=== PATIENT | male | born 1950 | race African-American/Black ===

== ENCOUNTER 2020-04-18 16:47 | Inpatient (IN) | payer MEDICARE, MEDICAID ==
--- NOTE | 2020-04-18 17:08 | ER Document Report ---
ED Fever - General Chief Complaint: Fever Stated Complaint: BREATHING DIFFICULTY Time Seen by Provider: 04/18/20 16:55 Notes: Patient is a 69-year-old male with a history of Alzheimer's dementia and schizophrenia that comes to the emergency department for chief complaint of fever. Fever was noticed tonight, reportedly staff noticed patient acting "different than his baseline", no other report given by EMS. Patient comes from the [facility]. Patient tested positive for COVID-19 by EMS in route. Patient noted to have a fever of 103.1 F on initial evaluation. Patient has a history of COPD, hyperlipidemia, former alcohol abuse as well. Patient is unable to give any meaningful history although he is cooperative with instructions and request s. TRAVEL OUTSIDE OF THE [place] IN LAST 30 DAYS: No - Related Data Allergies/Adverse Reactions: Penicillins Allergy (Verified 04/18/20 16:56) Past Medical History - General Information source: Patient - Social History Smoking Status: Unknown if Ever Smoked Frequency of alcohol use: Heavy - Former Lives with: Prison Family History: Reviewed & Not Pertinent Patient has homicidal ideation: No - Past Medical History Cardiac Medical History: Reports: Hx Hypercholesterolemia, Hx Hypertension Pulmonary Medical History: Reports: Hx COPD GI Medical History: Reports: Hx Gastroesophageal Reflux Disease - Immunizations Hx Diphtheria, Pertussis, Tetanus Vaccination: Yes Review of Systems - Review of Systems Constitutional: See HPI EENT: No symptoms reported Cardiovascular: No symptoms reported Respiratory: No symptoms reported Gastrointestinal: No symptoms reported Genitourinary: No symptoms reported Male Genitourinary: No symptoms reported Musculoskeletal: No symptoms reported Skin: No symptoms reported Hematologic/Lymphatic: No symptoms reported Neurological/Psychological: No symptoms reported Physical Exam - Vital signs Vitals: Resp Pulse Ox 21 H 87 L 04/18/20 16:52 04/18/20 16:52 - Notes Notes: GENERAL: Alert, interacts well. No acute distress. HEAD: Normocephalic, atraumatic. EYES: Pupils equal, round, and reactive to light. Extraocular movements intact. ENT: Oral mucosa moist, tongue midline. Oropharynx unremarkable. Airway patent. Nares patent, sinuses non-tender, ear canals unremarkable, TM's intact. NECK: Full range of motion. Supple. Trachea midline. No lymphadenopathy. LUNGS: Clear to auscultation bilaterally, no wheezes, rales, or rhonchi. No respiratory distress. Non-tender chest wall. HEART: Borderline tachycardic, normal rhythm, no murmur ABDOMEN: Soft, non-tender. Non-distended. EXTREMITIES: Moves all 4 extremities spontaneously. No edema, normal radial and dorsalis pedis pulses bilaterally. No cyanosis. BACK: no cervical, thoracic, lumbar midline tenderness. No saddle anesthesia, normal distal neurovascular exam. Moves all extremities in full range of motion. NEUROLOGICAL: Completely disoriented except for self. Normal speech. Cranial nerves II through XII grossly intact. Strength 5/5 in all extremities. PSYCH: Normal affect, normal mood. SKIN: Warm and flushed, otherwise unremarkable Course - Re-evaluation Re-evalutation: Patient is febrile, tachycardic, and hypoxic on room air at 87%. Patient is not on home oxygen. Patient was placed on 3 L nasal cannula and hypoxia resolved with oxygen saturation of 95%. Patient was treated for his fever by EMS and gradually his heart rate improved to the 90s. He is not hypotensive. Septic work-up pending. Patient Chest x-ray showing right-sided pneumonia, lactic acid is actually 4.1. Patient given small fluid bolus but potassium was only 2.9 and he is not hypotensive therefore patient was not given full 30 cc/kg resuscitation. CBC unremarkable except for thrombocytopenia. Patient was COVID-19 positive per EMS rapid test and this has been repeated here and is pending. Urinalysis obtained with temperature [place] and this is pending. Patient is completely demented at [facility] and we did place soft restraints because he was attempting to get out his IV and take off his monitoring. However patient is pleasant otherwise and he is following directions. Magnesium unremarkable, potassium infusing. EKG does not show prolonged QTC or U waves. I discussed with Dr. Munroe, he will evaluate the patient for admission. - Vital Signs Vital signs: Temp Pulse Resp BP Pulse Ox 98.4 F 71 22 H 131/59 H 94 04/19/20 04:11 04/19/20 04:11 04/19/20 04:11 04/19/20 04:11 04/19/20 04:59 - Laboratory Results Result Diagrams: 04/19/20 04:38 04/19/20 04:38 Laboratory Results Interpreted: 04/18/20 04/18/20 04/18/20 17:14 17:14 17:14 RDW 16.5 H Plt Count 130 L VBG pH 7.54 H Sodium 130.3 L Potassium 2.9 L* Chloride 85 L Carbon Dioxide 32 H BUN 21 H Est GFR (MDRD) Non-Af 59 L Glucose 228 H Lactic Acid Urine Blood Urine Urobilinogen 04/18/20 04/18/20 17:14 19:14 RDW Plt Count VBG pH Sodium Potassium Chloride Carbon Dioxide BUN Est GFR (MDRD) Non-Af Glucose Lactic Acid 4.1 H Urine Blood LARGE H Urine Urobilinogen 2.0 H Critical Laboratory Results Reviewed: Yes Attending or Supervising Physician who Reviewed Labs: FÁTIMA KINNEY - Radiology Results Critical Radiology Results Reviewed: No Critical Results - EKG Interpretation by Me Additional EKG results interpreted by me: EKG shows sinus tachycardia at a rate of 101, normal axis, QTC 431. Borderline T waves laterally, no ST segment changes in consecutive leads. Discharge - Discharge Clinical Impression: Hypoxia, Hypokalemia, COVID-19 Pneumonia Qualifiers: Pneumonia type: due to unspecified organism Laterality: right Lung location: middle lobe of lung Qualified Code(s): J18.9 - Pneumonia, unspecified organism Fever Qualifiers: Fever type: unspecified Qualified Code(s): R50.9 - Fever, unspecified Condition: Stable Disposition: ADMITTED INPATIENT Admitting Provider: Mer Unit Admitted: Medical Floor
--- NOTE | 2020-04-18 17:16 | RADIOLOGY REPORT (SQ) ---
EXAM DESCRIPTION: CHEST SINGLE VIEW IMAGES COMPLETED DATE/TIME: 04/18/2020 5:07 pm REASON FOR STUDY: sob COMPARISON: 2012. FINDINGS: One-view chest AP portable upright. Scarring in the apices with mild apical pleural thickening, likely scar. Suspect patchy right mid lung zone infiltrate laterally. Mild central vascular congestion. No significant pleural effusion. TECHNICAL DOCUMENTATION: JOB ID: [id number] Reading location - IP/workstation name: [email or web address]
[2020-04-18 17:29] LABS: ABSOLUTE BASOPHILS # (AUTO) 0.1 10^3/uL (0.0-0.2); ABSOLUTE LYMPHOCYTES (AUTO) 1.4 10^3/uL (0.5-4.7); ABSOLUTE MONOCYTES (AUTO) 1.1 10^3/uL (0.1-1.4); ABSOLUTE NEUT (AUTO) 6.1 10^3/uL (1.7-8.2); BASOPHILS % (AUTO) 1.2 % (0-2); HEMATOCRIT 38.7 % (37.9-51.0); HEMOGLOBIN 13.7 g/dL (13.5-17.0); LYMPHOCYTES % (AUTO) 15.8 % (13-45); MEAN CORPUSCULAR HEMOGLOBIN 30.6 pg (27.0-33.4); MEAN CORPUSCULAR HGB CONC 35.5 g/dL (32.0-36.0); MEAN CORPUSCULAR VOLUME 86 fl (80-97); MONOCYTES % (AUTO) 12.5 % (3-13); PLATELET COUNT 130 10^3/uL (150-450); RED BLOOD COUNT 4.49 10^6/uL (4.35-5.55); RED CELL DISTRIBUTION WIDTH 16.5 % (11.5-14.0); SEGMENTED NEUTROPHILS % (AUTO) 70.5 % (42-78); TOTAL CELLS COUNTED % (AUTO) 100 %; VENOUS BLOOD HCO3 29.7 mmol/L (20-32); VENOUS BLOOD PCO2 35.6 mmHg (35-63); VENOUS BLOOD PH 7.54 (7.30-7.42); WHITE BLOOD COUNT 8.7 10^3/uL (4.0-10.5)
[2020-04-18 17:53] LABS: ALBUMIN 4.1 g/dL (3.5-5.0); ALKALINE PHOSPHATASE 54 U/L (38-126); ANION GAP 13 (5-19); ASPARTATE AMINO TRANSFERASE 48 U/L (17-59); BILIRUBIN,DIRECT 0.2 mg/dL (0.0-0.4); BILIRUBIN,TOTAL 0.6 mg/dL (0.2-1.3); BLOOD UREA NITROGEN 21 mg/dL (7-20); CALCIUM 8.8 mg/dL (8.4-10.2); CARBON DIOXIDE 32 mmol/L (22-30); CHLORIDE 85 mmol/L (98-107); GLUCOSE 228 mg/dL (75-110); TOTAL PROTEIN 7.5 g/dL (6.3-8.2)
[2020-04-18 18:02] LABS: POTASSIUM 2.9 mmol/L (3.6-5.0)
[2020-04-18] MEDS ORDERED: CEFEPIME 2 GM/D5W RTU 2 GM/50 ML RTUPB IV ONE (18:02)
[2020-04-18] MEDS ORDERED: LIDOCAINE 2% URO-JET 5 ML KIT MM ONE (18:02)
[2020-04-18] MEDS ORDERED: NORMAL SALINE 500 ML IV ONE (18:03)
[2020-04-18] MEDS ORDERED: VANCOMYCIN HCL INJ 1000 MG VIAL IV ONE (18:28)
[2020-04-18] MEDS: POTASSI CL 20 MEQ/50 ML RIDER 20 MEQ/50 ML RTUPB IV SCH ×2 (18:55→20:34)
[2020-04-18 19:42] LABS: APPEARANCE,URINE CLEAR; BILIRUBIN,URINE NEGATIVE (NEGATIVE); COLOR,URINE YELLOW; GLUCOSE, URINE NEGATIVE (NEGATIVE); KETONES,URINE NEGATIVE (NEGATIVE); PROTEIN,URINE NEGATIVE (NEGATIVE); URINE SPECIFIC GRAVITY 1.012
[2020-04-18] MEDS ORDERED: PROMETHAZINE HCL INJ 25 MG/1 ML VIAL IV PRN (20:37)
[2020-04-18] MEDS ORDERED: RINGERS SOLUTION,LACTATED 1,000 ML IV PRN (20:37)
[2020-04-18] MEDS ORDERED: IVERMECTIN 3 MG TABLET PO ONE (20:44)
[2020-04-18] MEDS ORDERED: DEXAMETHASONE SOD PHOS INJ 10 MG/1 ML VIAL IV ONE (21:00)
--- NOTE | 2020-04-18 21:07 | PDOC H&P ---
History of Present Illness Admission Date/PCP: MARCO A RUEDA Patient complains of: Fever History of Present Illness: YAHAIRA SAUER is a 69 year old male with a history of Alzheimer's dementia, schizophrenia, COPD and hyperlipidemia who is brought in from [facility] after he was noted to have fever and change in his mental status from baseline. Patient is unable to give any meaningful answer and history was from ER signout and chart review. During transfer he had a temperature of 103.1 and he was given Tylenol by EMS which brought down his temperature. On arrival to the ED patient was saturating 87% on room air and was tachycardic. Further work-up indicates: Positive for COVID-19 with imaging findings consistent with Covid infection and currently being admitted to acute medicine floor for management of hypoxic respiratory failure. Past Medical History Cardiac Medical History: Reports: Hyperlipidema, Hypertension Pulmonary Medical History: Reports: Chronic Obstructive Pulmonary Disease (COPD) GI Medical History: Reports: Gastroesophageal Reflux Disease Social History Information Source: Emergency Med Personnel Lives with: Detention Smoking Status: Unknown if Ever Smoked - Advance Directive Resuscitation Status: Full Code Family History Family History: Reviewed & Not Pertinent Parental Family History Reviewed: No - Unobtainable due to mental status change Children Family History Reviewed: No Sibling(s) Family History Reviewed.: No Medication/Allergy Home Medications: Benztropine Mesylate 1 mg PO BID 12/17/14 Divalproex Sodium [Depakote ER] 1,000 mg PO QHS 04/19/20 Furosemide [Lasix] 20 mg PO DAILY 04/19/20 Hydrochlorothiazide 12.5 mg PO DAILY 04/19/20 Lorazepam 0.5 mg PO TID 04/19/20 Risperidone Microspheres [Risperdal Consta Inj 50 mg/2 ml Disp.syrin] 50 mg IM [id number] 04/19/20 Simvastatin [Zocor 10 mg Tablet] 10 mg PO QHS 04/19/20 Trazodone HCl 50 mg PO QHS 04/19/20 Allergies/Adverse Reactions: Penicillins Allergy (Verified 04/18/20 16:56) Review of Systems ROS unobtainable: Due to mental status Physical Exam Vital Signs: Temp Pulse Resp BP Pulse Ox 100.7 F H 22 H 145/64 H 99 04/18/20 19:18 04/18/20 19:18 04/18/20 19:18 04/18/20 19:18 Intake & Output 04/17/20 04/18/20 04/19/20 06:59 06:59 06:59 Intake Total 700 Balance 700 Weight 88.1 kg Additional comments: GENERAL APPEARANCE: Alert but unable to answer orientation question, is comfortably lying on his bed on 3 L intranasal oxygen saturating mid 90s HEENT: Normocephalic and atraumatic. No scleral icterus. Moist oral mucosa NECK: Supple. No lymphadenopathy. No JVD CHEST: Symmetric. Nontender to palpation. LUNGS: Clear with good air entry bilaterally. No wheezing or crackles HEART: Regular rate and rhythm with normal S1 and S2. No murmurs, gallops, or rubs. ABDOMEN: soft, active bowel sounds, no direct or rebound tenderness. No organomegaly detected. EXTREMITIES: No cyanosis, clubbing, or edema. MUSCULOSKELETAL: No deformity, atrophy or swelling noted PSYCHIATRIC: Difficult to assess due to advanced dementia. SKIN: Warm, dry, and well perfused. No lesions or rashes are noted. NEUROLOGIC: No focal neurologic deficit noted. Meningeal signs were negative Results Laboratory Results: 04/18/20 17:14 04/18/20 17:14 04/18/20 04/18/20 04/18/20 17:14 17:14 17:14 WBC 8.7 RBC 4.49 Hgb 13.7 Hct 38.7 MCV 86 MCH 30.6 MCHC 35.5 RDW 16.5 H Plt Count 130 L Seg Neutrophils % 70.5 VBG pH 7.54 H VBG pCO2 35.6 VBG HCO3 29.7 VBG Base Excess 7.0 Sodium 130.3 L Potassium 2.9 L* Chloride 85 L Carbon Dioxide 32 H Anion Gap 13 BUN 21 H Creatinine 1.21 Est GFR ( Amer) > 60 Glucose 228 H Lactic Acid Calcium 8.8 Magnesium Total Bilirubin 0.6 AST 48 Alkaline Phosphatase 54 Total Protein 7.5 Albumin 4.1 Urine Color Urine Appearance Urine pH Ur Specific [place] Urine Protein Urine Glucose (UA) Urine Ketones Urine Blood Urine RBC (Auto) 04/18/20 04/18/20 04/18/20 17:14 17:14 19:14 WBC RBC Hgb Hct MCV MCH MCHC RDW Plt Count Seg Neutrophils % VBG pH VBG pCO2 VBG HCO3 VBG Base Excess Sodium Potassium Chloride Carbon Dioxide Anion Gap BUN Creatinine Est GFR ( Amer) Glucose Lactic Acid 4.1 H Calcium Magnesium 1.7 Total Bilirubin AST Alkaline Phosphatase Total Protein Albumin Urine Color YELLOW Urine Appearance CLEAR Urine pH 7.0 Ur Specific [place] 1.012 Urine Protein NEGATIVE Urine Glucose (UA) NEGATIVE Urine Ketones NEGATIVE Urine Blood LARGE H Urine RBC (Auto) 2 04/18/20 17:14 Troponin I 0.024 Assessment and Plan - Diagnosis (1) Acute respiratory failure with hypoxia Is this a current diagnosis for this admission?: Yes Plan: Patient was brought in after he developed fever and confusion Oxygen saturation was 87% on room air on presentation Tested positive for COVID-19 Chest x-ray showed patchy right midlung opacities Placed patient on dexamethasone, gave first dose of ivermectin Continue zinc, vitamin C, vitamin D, on intranasal oxygen Continue ceftriaxone and azithromycin Follow-up with blood culture Closely monitor respiratory parameters (2) Pneumonia due to COVID-19 virus Is this a current diagnosis for this admission?: Yes Plan: Patient currently admitted for hypoxic respiratory failure due to COVID-19 pneumonia Continue management as stated above (3) Hypokalemia Is this a current diagnosis for this admission?: Yes Plan: Serum potassium level was 2.9 Patient was given IV potassium chloride at the ED Placed him on telemetry for monitoring Continue monitoring electrolytes and replete as necessary (4) Hyponatremia Is this a current diagnosis for this admission?: Yes Plan: Likely hypovolemic hyponatremia due to volume depletion Continue IV hydration Continue monitoring BMP and correct electrolytes as necessary (5) Metabolic alkalosis Is this a current diagnosis for this admission?: Yes Plan: Likely from alkalosis from volume depletion Continue IV hydration (6) Volume depletion Is this a current diagnosis for this admission?: Yes Plan: Patient had dry oral mucosa on physical exam Has metabolic alkalosis which is likely due to contraction Continue IV hydration and closely monitor vital signs (7) Schizophrenia Is this a current diagnosis for this admission?: Yes Plan: We will continue home medications (8) Alzheimer's dementia Is this a current diagnosis for this admission?: Yes Plan: Patient has an advanced dementia Attempt was made to contact next of kin to discuss was unsuccessful(phone number stated in chart out of service) (9) History of COPD Is this a current diagnosis for this admission?: Yes Plan: Continue breathing treatments with DuoNeb as needed (10) Hypertension Is this a current diagnosis for this admission?: Yes Plan: Currently blood pressure is within acceptable limits, will hold antihypertensive medications for now due to volume depletion - Time Time Spent with patient: 35 or more minutes Total Critical Time (Minutes): 45 Medications reviewed and adjusted accordingly: Yes Anticipated Discharge Disposition: Long-Term Facility Anticipated Discharge Timeframe: within 72 hours - Inpatient Certification Based on my medical assessment, after consideration of the patient's comorbidities, presenting symptoms, or acuity I expect that the services needed warrant INPATIENT care.: Yes I certify that my determination is in accordance with my understanding of Medicare's requirements for reasonable and necessary INPATIENT services [42 CFR 412.3e].: Yes Medical Necessity: Significant Comorbidiites Make Outpatient Treatment Too Risky, Need Close Monitoring Due to Risk of Patient Decompensation, Need for IV Antibiotics, Risk of Complication if Not Cared For in Hospital Post Hospital Care: D/C or Transfer Summary
--- NOTE | 2020-04-18 21:21 | EKG REPORT ---
SEVERITY:- ABNORMAL ECG - SINUS OR ECTOPIC ATRIAL TACHYCARDIA PROBABLE LEFT ATRIAL ABNORMALITY ABNORMAL T, CONSIDER ISCHEMIA, LATERAL LEADS : Confirmed by: Duncan Leo MD 18-Apr-2020 21:20:29
[2020-04-18 21:45] LABS: C-REACTIVE PROTEIN 82.9 mg/L (<10.0)
[2020-04-18] MEDS ORDERED: IVERMECTIN 3 MG TABLET ONE (21:55)
[2020-04-18] MEDS: TRAZODONE HCL 50 MG TABLET PO SCH (22:26)
[2020-04-18] MEDS: FAMOTIDINE 20 MG TABLET PO SCH (22:26)
[2020-04-18] MEDS: CEFTRIAXONE 1 GM/D5W RTU 1 GM/50 ML RTUPB IV SCH (22:30)
[2020-04-18] MEDS ORDERED: AZITHROMYCIN INJ 500 MG VIAL IV ONE (23:04)
[2020-04-19] MEDS: AZITHROMYCIN 500 MG in DEXTROSE 5%-WATER 250 ML IV SCH ×2 (00:20→21:12)
[2020-04-19 04:54] LABS: ABSOLUTE LYMPHOCYTES (AUTO) 0.7 10^3/uL (0.5-4.7); ABSOLUTE MONOCYTES (AUTO) 0.4 10^3/uL (0.1-1.4); ABSOLUTE NEUT (AUTO) 3.9 10^3/uL (1.7-8.2); BASOPHILS % (AUTO) 0.1 % (0-2); HEMATOCRIT 37.1 % (37.9-51.0); HEMOGLOBIN 13.3 g/dL (13.5-17.0); LYMPHOCYTES % (AUTO) 14.2 % (13-45); MEAN CORPUSCULAR HEMOGLOBIN 31.1 pg (27.0-33.4); MEAN CORPUSCULAR HGB CONC 35.8 g/dL (32.0-36.0); MEAN CORPUSCULAR VOLUME 87 fl (80-97); MONOCYTES % (AUTO) 7.9 % (3-13); PLATELET COUNT 118 10^3/uL (150-450); RED BLOOD COUNT 4.27 10^6/uL (4.35-5.55); RED CELL DISTRIBUTION WIDTH 16.4 % (11.5-14.0); SEGMENTED NEUTROPHILS % (AUTO) 77.8 % (42-78); TOTAL CELLS COUNTED % (AUTO) 100 %; WHITE BLOOD COUNT 5.1 10^3/uL (4.0-10.5)
[2020-04-19 05:19] LABS: ALBUMIN 3.6 g/dL (3.5-5.0); ALKALINE PHOSPHATASE 42 U/L (38-126); ANION GAP 10 (5-19); ASPARTATE AMINO TRANSFERASE 237 U/L (17-59); BILIRUBIN,DIRECT 0.3 mg/dL (0.0-0.4); BILIRUBIN,TOTAL 0.5 mg/dL (0.2-1.3); BLOOD UREA NITROGEN 15 mg/dL (7-20); CALCIUM 8.5 mg/dL (8.4-10.2); CARBON DIOXIDE 32 mmol/L (22-30); CHLORIDE 93 mmol/L (98-107); GLUCOSE 176 mg/dL (75-110); POTASSIUM 3.4 mmol/L (3.6-5.0); TOTAL PROTEIN 6.4 g/dL (6.3-8.2)
[2020-04-19] MEDS: ZINC SULFATE 220 MG CAPSULE PO SCH (09:51)
[2020-04-19] MEDS: ASCORBIC ACID 500 MG TABLET PO SCH ×2 (09:58→18:22)
[2020-04-19] MEDS: BENZTROPINE MESYLATE 1 MG TABLET PO SCH ×3 (09:58→17:39)
[2020-04-19] MEDS: ENOXAPARIN SODIUM INJ 40 MG/0.4 ML DISP.SYRIN SUBCUT SCH (09:58)
[2020-04-19] MEDS: CHOLECALCIFEROL (D3) 1,000 UNIT (25 MCG) TABLET PO SCH (09:58)
[2020-04-19] MEDS: FAMOTIDINE 20 MG TABLET PO SCH ×2 (09:58→21:12)
[2020-04-19] MEDS: DIVALPROEX SODIUM 500 MG TAB.SR.24H PO SCH (10:02)
[2020-04-19] MEDS ORDERED: POTASSIUM CHLORIDE 20 MEQ PACKET PO ONE (11:00)
--- NOTE | 2020-04-19 16:28 | PDOC PROGRESS REPORT ---
Subjective Date:: 04/19/20 Subjective:: YAHAIRA SAUER is a 69 year old male with a history of Alzheimer's dementia, s chizophrenia, COPD and hyperlipidemia who is brought in from [facility] after he was noted to have fever and change in his mental status from baseline. Patient is unable to give any meaningful answer and history was from ER signout and chart review. During transfer he had a temperature of 103.1 and he was given Tylenol by EMS which brought down his temperature. On arrival to the ED patient was saturating 87% on room air and was tachycardic. Further work-up indicates: Positive for COVID-19 with imaging findings consistent with Covid infection and currently being admitted to acute medicine floor for management of hypoxic respiratory failure. D1 Hospital stay 04/19/20 patient was seen and examined at bedside. He was on 2L of nasal cannula appears comfortable. He denies chest pain, palpitations or cough. Dementia seems at baseline. Reason For Visit: ACUTE HYPOXIC RESPIRATORY FAILURE PNUEMONIA DUE TO Physical Exam Vital Signs: Temp Pulse Resp BP Pulse Ox 98.2 F 75 20 130/62 H 98 04/19/20 10:00 04/19/20 14:00 04/19/20 08:00 04/19/20 08:00 04/19/20 08:00 Intake & Output 04/18/20 04/19/20 04/20/20 06:59 06:59 06:59 Intake Total 1050 530 Output Total 1275 370 Balance -225 160 Weight 86.3 kg General appearance: PRESENT: cooperative, mild distress Head exam: PRESENT: atraumatic, normocephalic Eye exam: PRESENT: EOMI, PERRLA Mouth exam: PRESENT: moist Neck exam: PRESENT: full ROM Respiratory exam: PRESENT: symmetrical, unlabored Cardiovascular exam: PRESENT: RRR, +S1, +S2 Pulses: PRESENT: +2 pedal pulses bilateral GI/Abdominal exam: PRESENT: normal bowel sounds, soft. ABSENT: rebound, tenderness Extremities exam: PRESENT: full ROM Musculoskeletal exam: PRESENT: full ROM Neurological exam: PRESENT: alert, awake. ABSENT: oriented to person, oriented to place, oriented to time, oriented to situation Psychiatric exam: PRESENT: normal mood Skin exam: PRESENT: normal color Results Laboratory Results: 04/19/20 04:38 04/19/20 04:38 04/18/20 04/18/2004/18/21 17:14 17:14 17:14 WBC 8.7 RBC 4.49 Hgb 13.7 Hct 38.7 MCV 86 MCH 30.6 MCHC 35.5 RDW 16.5 H Plt Count 130 L Seg Neutrophils % 70.5 VBG pH 7.54 H VBG pCO2 35.6 VBG HCO3 29.7 VBG Base Excess 7.0 Sodium 130.3 L Potassium 2.9 L* Chloride 85 L Carbon Dioxide 32 H Anion Gap 13 BUN 21 H Creatinine 1.21 Est GFR ( Amer) > 60 Glucose 228 H Lactic Acid Calcium 8.8 Magnesium Ferritin Total Bilirubin 0.6 AST 48 Alkaline Phosphatase 54 C-Reactive Protein Total Protein 7.5 Albumin 4.1 Urine Color Urine Appearance Urine pH Ur Specific [place] Urine Protein Urine Glucose (UA) Urine Ketones Urine Blood Urine RBC (Auto) 04/18/20 04/18/20 04/18/20 17:14 17:14 19:14 WBC RBC Hgb Hct MCV MCH MCHC RDW Plt Count Seg Neutrophils % VBG pH VBG pCO2 VBG HCO3 VBG Base Excess Sodium Potassium Chloride Carbon Dioxide Anion Gap BUN Creatinine Est GFR ( Amer) Glucose Lactic Acid 4.1 H Calcium Magnesium 1.7 Ferritin Total Bilirubin AST Alkaline Phosphatase C-Reactive Protein Total Protein Albumin Urine Color YELLOW Urine Appearance CLEAR Urine pH 7.0 Ur Specific [place] 1.012 Urine Protein NEGATIVE Urine Glucose (UA) NEGATIVE Urine Ketones NEGATIVE Urine Blood LARGE H Urine RBC (Auto) 2 04/18/20 04/18/20 04/19/20 21:15 21:15 00:19 WBC RBC Hgb Hct MCV MCH MCHC RDW Plt Count Seg Neutrophils % VBG pH VBG pCO2 VBG HCO3 VBG Base Excess Sodium Potassium Chloride Carbon Dioxide Anion Gap BUN Creatinine Est GFR ( Amer) Glucose Lactic Acid 1.8 1.3 Calcium Magnesium Ferritin 375.00 Total Bilirubin AST Alkaline Phosphatase C-Reactive Protein 82.9 H Total Protein Albumin Urine Color Urine Appearance Urine pH Ur Specific [place] Urine Protein Urine Glucose (UA) Urine Ketones Urine Blood Urine RBC (Auto) 04/19/20 04/19/20 04:38 04:38 WBC 5.1 RBC 4.27 L Hgb 13.3 L Hct 37.1 L MCV 87 MCH 31.1 MCHC 35.8 RDW 16.4 H Plt Count 118 L Seg Neutrophils % 77.8 VBG pH VBG pCO2 VBG HCO3 VBG Base Excess Sodium 134.7 L Potassium 3.4 L Chloride 93 L Carbon Dioxide 32 H Anion Gap 10 BUN 15 Creatinine 0.77 Est GFR ( Amer) > 60 Glucose 176 H Lactic Acid Calcium 8.5 Magnesium Ferritin Total Bilirubin 0.5 AST 237 H Alkaline Phosphatase 42 C-Reactive Protein Total Protein 6.4 Albumin 3.6 Urine Color Urine Appearance Urine pH Ur Specific [place] Urine Protein Urine Glucose (UA) Urine Ketones Urine Blood Urine RBC (Auto) 04/18/20 04/18/20 17:14 21:15 Creatine Kinase 6115 H Troponin I 0.024 Assessment and Plan - Diagnosis (1) Acute respiratory failure with hypoxia Is this a current diagnosis for this admission?: Yes Plan: Patient was brought in after he developed fever and confusion Oxygen saturation was 87% on room air on presentation Tested positive for COVID-19 Chest x-ray showed patchy right midlung opacities Placed patient on dexamethasone, gave first dose of ivermectin Continue zinc, vitamin C, vitamin D, on intranasal oxygen Continue ceftriaxone and azithromycin Follow-up with blood culture Closely monitor respiratory parameters (2) Pneumonia due to COVID-19 virus Is this a current diagnosis for this admission?: Yes Plan: Patient currently admitted for hypoxic respiratory failure due to COVID-19 pneumonia continue steroids, 2nd dose of ivermectin, empiric abx continue O2 support continue vitamin C, vitamin D, zinc unable to address CODE status with the patient due to dementia Continue management as stated above (3) History of COPD Is this a current diagnosis for this admission?: Yes Plan: Continue breathing treatments with DuoNeb as needed (4) Alzheimer's dementia Qualifiers: Alzheimer's disease onset: unspecified onset Is this a current diagnosis for this admission?: Yes Plan: Patient has an advanced dementia Attempt was made to contact next of kin to discuss was unsuccessful(phone number stated in chart out of service) (5) Hypertension Is this a current diagnosis for this admission?: Yes Plan: Currently blood pressure is within acceptable limits, will hold antihypertensive medications for now due to volume depletion (6) Hypokalemia Is this a current diagnosis for this admission?: Yes Plan: Serum potassium level was 2.9>3.4 replace as needed Placed him on telemetry for monitoring Continue monitoring electrolytes and replete as necessary (7) Hyponatremia Is this a current diagnosis for this admission?: Yes Plan: Likely hypovolemic hyponatremia due to volume depletion Continue IV hydration Continue monitoring BMP and correct electrolytes as necessary (8) Metabolic alkalosis Is this a current diagnosis for this admission?: Yes Plan: Likely from alkalosis from volume depletion encourage PO intake (9) Schizophrenia Is this a current diagnosis for this admission?: Yes Plan: We will continue home medications (10) Volume depletion Is this a current diagnosis for this admission?: Yes Plan: Patient had dry oral mucosa on physical exam Has metabolic alkalosis which is likely due to contraction encourage PO fluid intake - Time Time Spent with patient: 25-34 minutes Medications reviewed and adjusted accordingly: Yes Anticipated Discharge Disposition: [facility] Facility Anticipated Discharge Timeframe: TBD
[2020-04-19] MEDS ORDERED: HALOPERIDOL LACTATE INJ 5 MG/1 ML VIAL IV ONE (16:48)
[2020-04-19] MEDS: LORAZEPAM 0.5 MG TABLET PO SCH (17:08)
[2020-04-19] MEDS ORDERED: ZIPRASIDONE MESYLATE INJ/PF 20 MG SDV IM ONE (18:00)
[2020-04-19] MEDS: ACETAMINOPHEN 325 MG TABLET PO PRN ×2 (18:55→23:25)
[2020-04-19] MEDS: DEXAMETHASONE SOD PHOS INJ 10 MG/1 ML VIAL IV SCH (21:12)
[2020-04-19] MEDS: TRAZODONE HCL 50 MG TABLET PO SCH (21:13)
[2020-04-19] MEDS: CEFTRIAXONE 1 GM/D5W RTU 1 GM/50 ML RTUPB IV SCH (21:13)
[2020-04-19] MEDS ORDERED: DIVALPROEX SODIUM 500 MG TAB.SR.24H PO SCH (22:00)
[2020-04-19] MEDS ORDERED: TRAZODONE HCL 50 MG TABLET PO SCH (22:00)
[2020-04-19] MEDS ORDERED: SIMVASTATIN 10 MG TABLET PO SCH (22:00)
[2020-04-20 05:14] LABS: ABSOLUTE LYMPHOCYTES (AUTO) 0.3 10^3/uL (0.5-4.7); ABSOLUTE MONOCYTES (AUTO) 0.5 10^3/uL (0.1-1.4); ABSOLUTE NEUT (AUTO) 5.5 10^3/uL (1.7-8.2); BASOPHILS % (AUTO) 0.2 % (0-2); HEMATOCRIT 35.9 % (37.9-51.0); HEMOGLOBIN 12.7 g/dL (13.5-17.0); LYMPHOCYTES % (AUTO) 5.2 % (13-45); MEAN CORPUSCULAR HEMOGLOBIN 30.8 pg (27.0-33.4); MEAN CORPUSCULAR HGB CONC 35.3 g/dL (32.0-36.0); MEAN CORPUSCULAR VOLUME 87 fl (80-97); MONOCYTES % (AUTO) 8.3 % (3-13); PLATELET COUNT 125 10^3/uL (150-450); RED BLOOD COUNT 4.11 10^6/uL (4.35-5.55); RED CELL DISTRIBUTION WIDTH 16.3 % (11.5-14.0); SEGMENTED NEUTROPHILS % (AUTO) 86.3 % (42-78); TOTAL CELLS COUNTED % (AUTO) 100 %; WHITE BLOOD COUNT 6.4 10^3/uL (4.0-10.5)
[2020-04-20 05:25] LABS: ALBUMIN 3.4 g/dL (3.5-5.0); ALKALINE PHOSPHATASE 38 U/L (38-126); ANION GAP 7 (5-19); ASPARTATE AMINO TRANSFERASE 366 U/L (17-59); BILIRUBIN,DIRECT 0.4 mg/dL (0.0-0.4); BILIRUBIN,TOTAL 0.5 mg/dL (0.2-1.3); BLOOD UREA NITROGEN 14 mg/dL (7-20); CALCIUM 8.7 mg/dL (8.4-10.2); CARBON DIOXIDE 34 mmol/L (22-30); CHLORIDE 95 mmol/L (98-107); GLUCOSE 186 mg/dL (75-110); POTASSIUM 3.6 mmol/L (3.6-5.0); TOTAL PROTEIN 6.4 g/dL (6.3-8.2)
[2020-04-20] MEDS ORDERED: NORMAL SALINE 1000 ML 1,000 ML IV PRN (07:52)
[2020-04-20] MEDS ORDERED: IVERMECTIN 3 MG TABLET PO ONE (08:30)
[2020-04-20] MEDS: ENOXAPARIN SODIUM INJ 40 MG/0.4 ML DISP.SYRIN SUBCUT SCH (09:20)
[2020-04-20] MEDS: BENZTROPINE MESYLATE 1 MG TABLET PO SCH ×4 (09:25→17:19)
[2020-04-20] MEDS: ASCORBIC ACID 500 MG TABLET PO SCH ×2 (09:25→17:19)
[2020-04-20] MEDS: CHOLECALCIFEROL (D3) 1,000 UNIT (25 MCG) TABLET PO SCH (09:25)
[2020-04-20] MEDS: FAMOTIDINE 20 MG TABLET PO SCH ×2 (09:25→21:11)
[2020-04-20] MEDS: LORAZEPAM 0.5 MG TABLET PO SCH ×3 (09:25→17:19)
[2020-04-20] MEDS: ZINC SULFATE 220 MG CAPSULE PO SCH (09:27)
[2020-04-20] MEDS: DIVALPROEX SODIUM 500 MG TAB.SR.24H PO SCH (12:19)
--- NOTE | 2020-04-20 13:43 | PDOC PROGRESS REPORT ---
Subjective Date:: 04/20/20 Subjective:: YAHAIRA SAUER is a 69 year old male with a history of Alzheimer's dementia, s chizophrenia, COPD and hyperlipidemia who is brought in from [facility] after he was noted to have fever and change in his mental status from baseline. Patient is unable to give any meaningful answer and history was from ER signout and chart review. During transfer he had a temperature of 103.1 and he was given Tylenol by EMS which brought down his temperature. On arrival to the ED patient was saturating 87% on room air and was tachycardic. Further work-up indicates: Positive for COVID-19 with imaging findings consistent with Covid infection and currently being admitted to acute medicine floor for management of hypoxic respiratory failure. D1 Hospital stay 04/19/20 patient was seen and examined at bedside. He was on 2L of nasal cannula appears comfortable. He denies chest pain, palpitations or cough. Dementia seems at baseline. D2 Hospital stay 04/20/20 Patient was seen and examined at bedside. Per night nurse he became agitated and needed restraints. Today he was more calm and we were able to take the restraints off of him. He denies any SOB, O2 sat 99% on 3L of NC, so far has shown no increase in O2 needs. Reason For Visit: ACUTE HYPOXIC RESPIRATORY FAILURE PNUEMONIA DUE TO Physical Exam Vital Signs: Temp Pulse Resp BP Pulse Ox 97.6 F 61 20 124/77 94 04/20/20 11:36 04/20/20 11:36 04/20/20 11:36 04/20/20 11:36 04/20/20 11:36 Intake & Output 04/19/20 04/20/20 04/21/20 06:59 06:59 06:59 Intake Total 1050 830 Output Total 1275 595 Balance -225 235 Weight 86.3 kg 85.2 kg General appearance: PRESENT: no acute distress, cooperative Head exam: PRESENT: atraumatic, normocephalic Eye exam: PRESENT: EOMI, PERRLA Mouth exam: PRESENT: moist Neck exam: PRESENT: full ROM Respiratory exam: PRESENT: clear to auscultation rea, symmetrical, unlabored Cardiovascular exam: PRESENT: RRR, +S1, +S2 Pulses: PRESENT: +2 pedal pulses bilateral GI/Abdominal exam: PRESENT: normal bowel sounds, soft. ABSENT: rebound, tenderness Extremities exam: PRESENT: full ROM Musculoskeletal exam: PRESENT: full ROM Neurological exam: PRESENT: alert, awake. ABSENT: oriented to person, oriented to place, oriented to time, oriented to situation Psychiatric exam: PRESENT: normal mood Skin exam: PRESENT: normal color Results Laboratory Results: 04/20/20 04:31 04/20/20 04:31 04/20/20 04/20/20 04:31 04:31 WBC 6.4 RBC 4.11 L Hgb 12.7 L Hct 35.9 L MCV 87 MCH 30.8 MCHC 35.3 RDW 16.3 H Plt Count 125 L Seg Neutrophils % 86.3 H Sodium 135.6 L Potassium 3.6 Chloride 95 L Carbon Dioxide 34 H Anion Gap 7 BUN 14 Creatinine 0.78 Est GFR ( Amer) > 60 Glucose 186 H Calcium 8.7 Total Bilirubin 0.5 AST 366 H Alkaline Phosphatase 38 Total Protein 6.4 Albumin 3.4 L 04/18/20 04/18/20 17:14 21:15 Creatine Kinase 6115 H Troponin I 0.024 Assessment and Plan - Diagnosis (1) Acute respiratory failure with hypoxia Is this a current diagnosis for this admission?: Yes Plan: Patient was brought in after he developed fever and confusion Oxygen saturation was 87% on room air on presentation Tested positive for COVID-19 Chest x-ray showed patchy right midlung opacities Placed patient on dexamethasone, gave first dose of ivermectin Continue zinc, vitamin C, vitamin D, on intranasal oxygen Continue ceftriaxone and azithromycin Follow-up with blood culture Closely monitor respiratory parameters (2) Pneumonia due to COVID-19 virus Is this a current diagnosis for this admission?: Yes Plan: Patient currently admitted for hypoxic respiratory failure due to COVID-19 pneumonia continue steroids, 2nd dose of ivermectin, empiric abx continue O2 support continue vitamin C, vitamin D, zinc unable to address CODE status with the patient due to dementia Continue management as stated above (3) History of COPD Is this a current diagnosis for this admission?: Yes Plan: Continue breathing treatments with DuoNeb as needed (4) Alzheimer's dementia Qualifiers: Alzheimer's disease onset: unspecified onset Is this a current diagnosis for this admission?: Yes Plan: Patient has an advanced dementia Attempt was made to contact next of kin to discuss was unsuccessful(phone number stated in chart out of service) (5) Hypertension Qualifiers: Hypertension type: essential hypertension Qualified Code(s): I10 - Essential (primary) hypertension Is this a current diagnosis for this admission?: Yes Plan: Currently blood pressure is within acceptable limits, will hold antihypertensive medications for now due to volume depletion (6) Hypokalemia Is this a current diagnosis for this admission?: Yes Plan: Serum potassium level was 2.9>3.4 replace as needed Placed him on telemetry for monitoring Continue monitoring electrolytes and replete as necessary (7) Hyponatremia Is this a current diagnosis for this admission?: Yes Plan: Likely hypovolemic hyponatremia due to volume depletion Continue IV hydration Continue monitoring BMP and correct electrolytes as necessary (8) Metabolic alkalosis Is this a current diagnosis for this admission?: Yes Plan: Likely from alkalosis from volume depletion encourage PO intake (9) Schizophrenia Is this a current diagnosis for this admission?: Yes Plan: We will continue home medications (10) Volume depletion Is this a current diagnosis for this admission?: Yes Plan: Patient had dry oral mucosa on physical exam Has metabolic alkalosis which is likely due to contraction encourage PO fluid intake, continue IV fluids - Time Time Spent with patient: 15-24 minutes Medications reviewed and adjusted accordingly: Yes Anticipated Discharge Disposition: [facility]way Facility Anticipated Discharge Timeframe: tbd
[2020-04-20] MEDS: NORMAL SALINE 1000 ML 1,000 ML IV PRN (14:12)
[2020-04-20] MEDS ORDERED: ZIPRASIDONE MESYLATE INJ/PF 20 MG SDV IM ONE (17:30)
[2020-04-20] MEDS: AZITHROMYCIN 500 MG in DEXTROSE 5%-WATER 250 ML IV SCH (21:12)
[2020-04-20] MEDS: CEFTRIAXONE 1 GM/D5W RTU 1 GM/50 ML RTUPB IV SCH (21:12)
[2020-04-20] MEDS: DEXAMETHASONE SOD PHOS INJ 10 MG/1 ML VIAL IV SCH (21:12)
[2020-04-20] MEDS: TRAZODONE HCL 50 MG TABLET PO SCH (21:12)
[2020-04-20] MEDS: ACETAMINOPHEN 325 MG TABLET PO PRN (21:13)
[2020-04-21] MEDS: NORMAL SALINE 1000 ML 1,000 ML IV PRN (01:26)
[2020-04-21 06:22] LABS: ABSOLUTE LYMPHOCYTES (AUTO) 0.6 10^3/uL (0.5-4.7); ABSOLUTE MONOCYTES (AUTO) 0.4 10^3/uL (0.1-1.4); BASOPHILS % (AUTO) 0.2 % (0-2); HEMATOCRIT 37.1 % (37.9-51.0); HEMOGLOBIN 12.9 g/dL (13.5-17.0); LYMPHOCYTES % (AUTO) 9.7 % (13-45); MEAN CORPUSCULAR HEMOGLOBIN 30.6 pg (27.0-33.4); MEAN CORPUSCULAR HGB CONC 34.7 g/dL (32.0-36.0); MEAN CORPUSCULAR VOLUME 88 fl (80-97); MONOCYTES % (AUTO) 7.2 % (3-13); PLATELET COUNT 150 10^3/uL (150-450); RED BLOOD COUNT 4.21 10^6/uL (4.35-5.55); RED CELL DISTRIBUTION WIDTH 16.4 % (11.5-14.0); SEGMENTED NEUTROPHILS % (AUTO) 82.9 % (42-78); TOTAL CELLS COUNTED % (AUTO) 100 %
[2020-04-21 07:11] LABS: ALBUMIN 3.2 g/dL (3.5-5.0); ALKALINE PHOSPHATASE 40 U/L (38-126); ANION GAP 6 (5-19); ASPARTATE AMINO TRANSFERASE 267 U/L (17-59); BILIRUBIN,DIRECT 0.3 mg/dL (0.0-0.4); BILIRUBIN,TOTAL 0.4 mg/dL (0.2-1.3); BLOOD UREA NITROGEN 13 mg/dL (7-20); CALCIUM 8.4 mg/dL (8.4-10.2); CARBON DIOXIDE 33 mmol/L (22-30); CHLORIDE 98 mmol/L (98-107); GLUCOSE 185 mg/dL (75-110); POTASSIUM 3.7 mmol/L (3.6-5.0); TOTAL PROTEIN 6.3 g/dL (6.3-8.2)
[2020-04-21 08:37] LABS: HEPATITS B SURFACE ANTIGEN Negative (Negative)
[2020-04-21 08:55] LABS: HEPATITIS C VIRUS ANTIBODY <0.1 s/co ratio (0.0-0.9)
[2020-04-21] MEDS: BENZTROPINE MESYLATE 1 MG TABLET PO SCH ×4 (09:18→17:33)
[2020-04-21] MEDS: ENOXAPARIN SODIUM INJ 40 MG/0.4 ML DISP.SYRIN SUBCUT SCH (09:18)
[2020-04-21] MEDS: ASCORBIC ACID 500 MG TABLET PO SCH ×2 (09:18→17:32)
[2020-04-21] MEDS: FAMOTIDINE 20 MG TABLET PO SCH ×2 (09:18→21:19)
[2020-04-21] MEDS: CHOLECALCIFEROL (D3) 1,000 UNIT (25 MCG) TABLET PO SCH (09:18)
[2020-04-21] MEDS: ZINC SULFATE 220 MG CAPSULE PO SCH (09:33)
[2020-04-21] MEDS: DIVALPROEX SODIUM 500 MG TAB.SR.24H PO SCH (10:10)
--- NOTE | 2020-04-21 16:17 | PDOC PROGRESS REPORT ---
Subjective Date:: 04/21/20 Subjective:: YAHAIRA SAUER is a 69 year old male with a history of Alzheimer's dementia, s chizophrenia, COPD and hyperlipidemia who is brought in from [facility] after he was noted to have fever and change in his mental status from baseline. Patient is unable to give any meaningful answer and history was from ER signout and chart review. During transfer he had a temperature of 103.1 and he was given Tylenol by EMS which brought down his temperature. On arrival to the ED patient was saturating 87% on room air and was tachycardic. Further work-up indicates: Positive for COVID-19 with imaging findings consistent with Covid infection and currently being admitted to acute medicine floor for management of hypoxic respiratory failure. D1 Hospital stay 04/19/20 patient was seen and examined at bedside. He was on 2L of nasal cannula appears comfortable. He denies chest pain, palpitations or cough. Dementia seems at baseline. D2 Hospital stay 04/20/20 Patient was seen and examined at bedside. Per night nurse he became agitated and needed restraints. Today he was more calm and we were able to take the restraints off of him. He denies any SOB, O2 sat 99% on 3L of NC, so far has shown no increase in O2 needs. D3 hospital stay 04/21/20 Patient was seen and examined at bedside. He was again put back on restraints last night due to despite frequent re orientation. Otherwise, O2 sat is stable at 2L NC. He has completed Ivermectin doses.We will try to wean him off O2 tomorrow. Reason For Visit: ACUTE HYPOXIC RESPIRATORY FAILURE PNUEMONIA DUE TO Physical Exam Vital Signs: Temp Pulse Resp BP Pulse Ox 97.9 F 69 22 H 110/60 98 04/21/20 12:26 04/21/20 14:00 04/21/20 12:26 04/21/20 12:26 04/21/20 12:26 Intake & Output 04/20/20 04/21/20 04/22/20 06:59 06:59 06:59 Intake Total 830 2661 1000 Output Total 595 Balance 235 2661 1000 Weight 85.2 kg 86.2 kg General appearance: PRESENT: cooperative, mild distress Head exam: PRESENT: atraumatic, normocephalic Eye exam: PRESENT: EOMI, PERRLA Mouth exam: PRESENT: moist Neck exam: PRESENT: full ROM Respiratory exam: PRESENT: rales, symmetrical, unlabored Cardiovascular exam: PRESENT: RRR, +S1, +S2 Pulses: PRESENT: +2 pedal pulses bilateral GI/Abdominal exam: PRESENT: normal bowel sounds, soft. ABSENT: rebound, tenderness Extremities exam: PRESENT: full ROM Musculoskeletal exam: PRESENT: full ROM Neurological exam: PRESENT: alert, awake. ABSENT: oriented to person, oriented to place, oriented to time, oriented to situation Psychiatric exam: PRESENT: normal mood Results Laboratory Results: 04/21/20 06:01 04/21/20 06:01 04/21/20 04/21/20 06:01 06:01 WBC 6.0 RBC 4.21 L Hgb 12.9 L Hct 37.1 L MCV 88 MCH 30.6 MCHC 34.7 RDW 16.4 H Plt Count 150 Seg Neutrophils % 82.9 H Sodium 137.1 Potassium 3.7 Chloride 98 Carbon Dioxide 33 H Anion Gap 6 BUN 13 Creatinine 0.76 Est GFR ( Amer) > 60 Glucose 185 H Calcium 8.4 Total Bilirubin 0.4 AST 267 H Alkaline Phosphatase 40 Total Protein 6.3 Albumin 3.2 L 04/18/20 04/18/20 17:14 21:15 Creatine Kinase 6115 H Troponin I 0.024 Assessment and Plan - Diagnosis (1) Acute respiratory failure with hypoxia Is this a current diagnosis for this admission?: Yes Plan: Patient was brought in after he developed fever and confusion Oxygen saturation was 87% on room air on presentation Tested positive for COVID-19 Chest x-ray showed patchy right midlung opacities Placed patient on dexamethasone, gave first dose of ivermectin Continue zinc, vitamin C, vitamin D, on intranasal oxygen Continue ceftriaxone and azithromycin will complete 5 days of treatment blood culture negative x 48 hrs Closely monitor respiratory parameters (2) Pneumonia due to COVID-19 virus Is this a current diagnosis for this admission?: Yes Plan: Patient currently admitted for hypoxic respiratory failure due to COVID-19 pneumonia continue steroids, 2nd dose of ivermectin given, empiric abx continue O2 support continue vitamin C, vitamin D, zinc unable to address CODE status with the patient due to dementia Continue management as stated above (3) History of COPD Is this a current diagnosis for this admission?: Yes Plan: Continue breathing treatments with DuoNeb as needed (4) Alzheimer's dementia Qualifiers: Alzheimer's disease onset: unspecified onset Is this a current diagnosis for this admission?: Yes Plan: Patient has an advanced dementia Attempt was made to contact next of kin to discuss was unsuccessful(phone number stated in chart out of service) (5) Hypertension Qualifiers: Hypertension type: essential hypertension Qualified Code(s): I10 - E ssential (primary) hypertension Is this a current diagnosis for this admission?: Yes Plan: Currently blood pressure is within acceptable limits, will hold antihypertensive medications for now due to volume depletion (6) Hypokalemia Is this a current diagnosis for this admission?: Yes Plan: Serum potassium level was 2.9>3.4>3.7 replace as needed Placed him on telemetry for monitoring Continue monitoring electrolytes and replete as necessary (7) Hyponatremia Is this a current diagnosis for this admission?: Yes Plan: Likely hypovolemic hyponatremia due to volume depletion Continue IV hydration Continue monitoring BMP and correct electrolytes as necessary (8) Metabolic alkalosis Is this a current diagnosis for this admission?: Yes Plan: Likely from alkalosis from volume depletion encourage PO intake (9) Schizophrenia Is this a current diagnosis for this admission?: Yes Plan: We will continue home medications (10) Volume depletion Is this a current diagnosis for this admission?: Yes Plan: Patient had dry oral mucosa on physical exam Has metabolic alkalosis which is likely due to contraction encourage PO fluid intake, continue IV fluids - Time Time Spent with patient: 25-34 minutes Medications reviewed and adjusted accordingly: Yes Anticipated Discharge Disposition: [facility] Anticipated Discharge Timeframe: tbd
[2020-04-21] MEDS: CEFTRIAXONE 1 GM/D5W RTU 1 GM/50 ML RTUPB IV SCH (21:18)
[2020-04-21] MEDS: TRAZODONE HCL 50 MG TABLET PO SCH (21:19)
[2020-04-21] MEDS: DEXAMETHASONE SOD PHOS INJ 10 MG/1 ML VIAL IV SCH (21:20)
[2020-04-21] MEDS: AZITHROMYCIN 500 MG in DEXTROSE 5%-WATER 250 ML IV SCH (22:05)
[2020-04-21] MEDS: ZIPRASIDONE MESYLATE INJ/PF 20 MG SDV IM PRN (22:06)
--- NOTE | 2020-04-21 23:38 | EKG REPORT ---
SEVERITY:- NORMAL ECG - SINUS RHYTHM : Confirmed by: Marcos Kearney 21-Apr-2020 23:38:00
[2020-04-22 05:30] LABS: ABSOLUTE LYMPHOCYTES (AUTO) 0.6 10^3/uL (0.5-4.7); ABSOLUTE MONOCYTES (AUTO) 0.4 10^3/uL (0.1-1.4); ABSOLUTE NEUT (AUTO) 6.3 10^3/uL (1.7-8.2); BASOPHILS % (AUTO) 0.2 % (0-2); EOSINOPHILS % (AUTO) 0.1 % (0-6); HEMATOCRIT 38.3 % (37.9-51.0); HEMOGLOBIN 13.2 g/dL (13.5-17.0); LYMPHOCYTES % (AUTO) 7.9 % (13-45); MEAN CORPUSCULAR HEMOGLOBIN 30.6 pg (27.0-33.4); MEAN CORPUSCULAR HGB CONC 34.4 g/dL (32.0-36.0); MEAN CORPUSCULAR VOLUME 89 fl (80-97); MONOCYTES % (AUTO) 5.5 % (3-13); PLATELET COUNT 181 10^3/uL (150-450); RED CELL DISTRIBUTION WIDTH 16.5 % (11.5-14.0); SEGMENTED NEUTROPHILS % (AUTO) 86.3 % (42-78); TOTAL CELLS COUNTED % (AUTO) 100 %; WHITE BLOOD COUNT 7.4 10^3/uL (4.0-10.5)
[2020-04-22 05:33] LABS: ALBUMIN 3.5 g/dL (3.5-5.0); ALKALINE PHOSPHATASE 47 U/L (38-126); ANION GAP 6 (5-19); ASPARTATE AMINO TRANSFERASE 225 U/L (17-59); BILIRUBIN,DIRECT 0.2 mg/dL (0.0-0.4); BILIRUBIN,TOTAL 0.4 mg/dL (0.2-1.3); BLOOD UREA NITROGEN 14 mg/dL (7-20); CARBON DIOXIDE 34 mmol/L (22-30); CHLORIDE 98 mmol/L (98-107); GLUCOSE 170 mg/dL (75-110); POTASSIUM 3.9 mmol/L (3.6-5.0); TOTAL PROTEIN 6.8 g/dL (6.3-8.2)
[2020-04-22] MEDS: BENZTROPINE MESYLATE 1 MG TABLET PO SCH ×3 (10:06→17:07)
[2020-04-22] MEDS: DIVALPROEX SODIUM 500 MG TAB.SR.24H PO SCH (10:08)
[2020-04-22] MEDS: CHOLECALCIFEROL (D3) 1,000 UNIT (25 MCG) TABLET PO SCH (10:08)
[2020-04-22] MEDS: FAMOTIDINE 20 MG TABLET PO SCH ×2 (10:08→21:22)
[2020-04-22] MEDS: ASCORBIC ACID 500 MG TABLET PO SCH ×2 (10:08→17:07)
[2020-04-22] MEDS: ENOXAPARIN SODIUM INJ 40 MG/0.4 ML DISP.SYRIN SUBCUT SCH (10:08)
[2020-04-22] MEDS: ZINC SULFATE 220 MG CAPSULE PO SCH (10:09)
--- NOTE | 2020-04-22 14:39 | PDOC PROGRESS REPORT ---
Subjective Date:: 04/22/20 Subjective:: YAHAIRA SAUER is a 69 year old male with a history of Alzheimer's dementia, s chizophrenia, COPD and hyperlipidemia who is brought in from [facility] after he was noted to have fever and change in his mental status from baseline. Patient is unable to give any meaningful answer and history was from ER signout and chart review. During transfer he had a temperature of 103.1 and he was given Tylenol by EMS which brought down his temperature. On arrival to the ED patient was saturating 87% on room air and was tachycardic. Further work-up indicates: Positive for COVID-19 with imaging findings consistent with Covid infection and currently being admitted to acute medicine floor for management of hypoxic respiratory failure. D1 Hospital stay 04/19/20 patient was seen and examined at bedside. He was on 2L of nasal cannula appears comfortable. He denies chest pain, palpitations or cough. Dementia seems at baseline. D2 Hospital stay 04/20/20 Patient was seen and examined at bedside. Per night nurse he became agitated and needed restraints. Today he was more calm and we were able to take the restraints off of him. He denies any SOB, O2 sat 99% on 3L of NC, so far has shown no increase in O2 needs. D3 hospital stay 04/21/20 Patient was seen and examined at bedside. He was again put back on restraints last night due to despite frequent re orientation. Otherwise, O2 sat is stable at 2L NC. He has completed Ivermectin doses.We will try to wean him off O2 tomorrow. D4 Hospital stay 04/22/20 Patient was seen and examined at bedside. On restraints again but he's very calm so I removed his restraints, otherwise he is not complaining of any SOB. I have told the nurse to wean him off O2. Otherwise he is doing well in terms of his COVID infection. Reason For Visit: ACUTE HYPOXIC RESPIRATORY FAILURE PNUEMONIA DUE TO Physical Exam Vital Signs: Temp Pulse Resp BP Pulse Ox 98.0 F 74 22 H 167/74 H 91 L 04/22/20 08:32 04/22/20 08:32 04/22/20 08:32 04/22/20 08:32 04/22/20 08:32 Intake & Output 04/21/20 04/22/20 04/23/20 06:59 06:59 06:59 Intake Total 2660 2059 Balance 2660 2059 Weight 86.2 kg 85.7 kg General appearance: PRESENT: no acute distress, cooperative Head exam: PRESENT: atraumatic, normocephalic Eye exam: PRESENT: EOMI, PERRLA Mouth exam: PRESENT: moist Neck exam: PRESENT: full ROM Respiratory exam: PRESENT: clear to auscultation rea, symmetrical, unlabored Cardiovascular exam: PRESENT: RRR Pulses: PRESENT: +2 pedal pulses bilateral GI/Abdominal exam: PRESENT: normal bowel sounds, soft. ABSENT: rebound, tenderness Extremities exam: PRESENT: full ROM Musculoskeletal exam: PRESENT: full ROM Neurological exam: PRESENT: alert, awake. ABSENT: oriented to person, oriented to place, oriented to time, oriented to situation Psychiatric exam: PRESENT: normal mood Skin exam: PRESENT: normal color Results Laboratory Results: 04/22/20 04:48 04/22/20 04:48 04/22/20 04/22/20 04:48 04:48 WBC 7.4 RBC 4.30 L Hgb 13.2 L Hct 38.3 MCV 89 MCH 30.6 MCHC 34.4 RDW 16.5 H Plt Count 181 Seg Neutrophils % 86.3 H Sodium 137.5 Potassium 3.9 Chloride 98 Carbon Dioxide 34 H Anion Gap 6 BUN 14 Creatinine 0.71 Est GFR ( Amer) > 60 Glucose 170 H Calcium 9.0 Total Bilirubin 0.4 AST 225 H Alkaline Phosphatase 47 Total Protein 6.8 Albumin 3.5 04/18/20 04/18/20 17:14 21:15 Creatine Kinase 6115 H Troponin I 0.024 Assessment and Plan - Diagnosis (1) Acute respiratory failure with hypoxia Is this a current diagnosis for this admission?: Yes Plan: Patient was brought in after he developed fever and confusion Oxygen saturation was 87% on room air on presentation Tested positive for COVID-19 Chest x-ray showed patchy right midlung opacities Placed patient on dexamethasone, gave first dose of ivermectin Continue zinc, vitamin C, vitamin D, on intranasal oxygen Continue ceftriaxone and azithromycin will complete 5 days of treatment blood culture negative x 48 hrs Closely monitor respiratory parameters (2) Pneumonia due to COVID-19 virus Is this a current diagnosis for this admission?: Yes Plan: Patient currently admitted for hypoxic respiratory failure due to COVID-19 pneumonia continue steroids, 2nd dose of ivermectin given, empiric abx continue O2 support continue vitamin C, vitamin D, zinc unable to address CODE status with the patient due to dementia Continue management as stated above (3) History of COPD Is this a current diagnosis for this admission?: Yes Plan: Continue breathing treatments with DuoNeb as needed (4) Alzheimer's dementia Qualifiers: Alzheimer's disease onset: unspecified onset Is this a current diagnosis for this admission?: Yes Plan: Patient has an advanced dementia Attempt was made to contact next of kin to discuss was unsuccessful(phone number stated in chart out of service) (5) Hypertension Qualifiers: Hypertension type: essential hypertension Qualified Code(s): I10 - Essential (primary) hypertension Is this a current diagnosis for this admission?: Yes Plan: Currently blood pressure is within acceptable limits, will hold antihypertensive medications for now due to volume depletion (6) Hypokalemia Is this a current diagnosis for this admission?: Yes Plan: Serum potassium level was 2.9>3.4>3.7 replace as needed Placed him on telemetry for monitoring Continue monitoring electrolytes and replete as necessary (7) Hyponatremia Is this a current diagnosis for this admission?: Yes Plan: Likely hypovolemic hyponatremia due to volume depletion Continue monitoring BMP and correct electrolytes as necessary (8) Metabolic alkalosis Is this a current diagnosis for this admission?: Yes Plan: Likely from alkalosis from volume depletion encourage PO intake (9) Schizophrenia Is this a current diagnosis for this admission?: Yes Plan: We will continue home medications (10) Volume depletion Is this a current diagnosis for this admission?: Yes Plan: Patient had dry oral mucosa on physical exam Has metabolic alkalosis which is likely due to contraction encourage PO fluid intake (11) Transaminitis Is this a current diagnosis for this admission?: Yes Plan: - AST 366>225, ALT 54>63 - Hepatitis panel negative - statin stopped - Time Time Spent with patient: 15-24 minutes Medications reviewed and adjusted accordingly: Yes Anticipated Discharge Disposition: Intermediate Care Facility Anticipated Discharge Timeframe: within 48 hours
[2020-04-22] MEDS: ZIPRASIDONE MESYLATE INJ/PF 20 MG SDV IM PRN (18:53)
[2020-04-22] MEDS: ACETAMINOPHEN 325 MG TABLET PO PRN (20:23)
[2020-04-22] MEDS: IPRATROPIUM/ALBUTEROL 0.5-2.5 MG/3 ML AMPUL NEB SCH (20:30)
[2020-04-22] MEDS: DEXAMETHASONE SOD PHOS INJ 10 MG/1 ML VIAL IV SCH (21:21)
[2020-04-22] MEDS: TRAZODONE HCL 50 MG TABLET PO SCH (21:22)
[2020-04-22] MEDS ORDERED: AZITHROMYCIN 250 MG TABLET PO SCH (22:00)
[2020-04-23] MEDS ORDERED: PREDNISONE 20 MG TABLET PO ONE (00:15)
[2020-04-23 05:22] LABS: HEMATOCRIT 38.1 % (37.9-51.0); HEMOGLOBIN 13.3 g/dL (13.5-17.0); MEAN CORPUSCULAR HEMOGLOBIN 30.9 pg (27.0-33.4); MEAN CORPUSCULAR HGB CONC 34.9 g/dL (32.0-36.0); MEAN CORPUSCULAR VOLUME 89 fl (80-97); PLATELET COUNT 251 10^3/uL (150-450); RED CELL DISTRIBUTION WIDTH 16.7 % (11.5-14.0); WHITE BLOOD COUNT 7.7 10^3/uL (4.0-10.5)
[2020-04-23 05:54] LABS: ALBUMIN 3.3 g/dL (3.5-5.0); ALKALINE PHOSPHATASE 57 U/L (38-126); ANION GAP 10 (5-19); ASPARTATE AMINO TRANSFERASE 140 U/L (17-59); BILIRUBIN,DIRECT 0.3 mg/dL (0.0-0.4); BILIRUBIN,TOTAL 0.6 mg/dL (0.2-1.3); BLOOD UREA NITROGEN 15 mg/dL (7-20); CALCIUM 9.1 mg/dL (8.4-10.2); CARBON DIOXIDE 27 mmol/L (22-30); CHLORIDE 104 mmol/L (98-107); GLUCOSE 187 mg/dL (75-110); POTASSIUM 3.7 mmol/L (3.6-5.0); TOTAL PROTEIN 6.4 g/dL (6.3-8.2)
[2020-04-23 06:00] LABS: ABSOLUTE LYMPHOCYTES# (MANUAL) 0.5 10^3/uL (0.5-4.7); ABSOLUTE MONOCYTES # (MANUAL) 0.4 10^3/uL (0.1-1.4); BASOPHILS % (MANUAL) 0 % (0-2); EOSINOPHILS % (MANUAL) 0 % (0-6); LYMPHOCYTES % (MANUAL) 6 % (13-45); MONOCYTES % (MANUAL) 5 % (3-13); NUCLEATED RED BLOOD CELLS 1 /100 WBC (0); SEGMENTED NEUTROPHILS % (MAN) 89 % (42-78); TOTAL CELLS COUNTED 100
[2020-04-23 06:04] LABS: ANISOCYTOSIS 2+; PLATELET COMMENT ADEQUATE
[2020-04-23] MEDS ORDERED: ALBUTEROL SULFATE 0.042% NEB (1.25 MG/3 ML) AMPUL NEB ONE (09:21)
[2020-04-23] MEDS ORDERED: IPRATROPIUM/ALBUTEROL 0.5-2.5 MG/3 ML AMPUL NEB ONE (09:22)
[2020-04-23] MEDS: IPRATROPIUM/ALBUTEROL 0.5-2.5 MG/3 ML AMPUL NEB SCH ×3 (09:23→20:30)
[2020-04-23] MEDS: CHOLECALCIFEROL (D3) 1,000 UNIT (25 MCG) TABLET PO SCH (10:58)
[2020-04-23] MEDS: DIVALPROEX SODIUM 500 MG TAB.SR.24H PO SCH (10:58)
[2020-04-23] MEDS: ASCORBIC ACID 500 MG TABLET PO SCH ×2 (10:58→18:08)
[2020-04-23] MEDS: BENZTROPINE MESYLATE 1 MG TABLET PO SCH ×2 (10:58→18:08)
[2020-04-23] MEDS: FAMOTIDINE 20 MG TABLET PO SCH ×2 (10:58→22:43)
[2020-04-23] MEDS: ENOXAPARIN SODIUM INJ 40 MG/0.4 ML DISP.SYRIN SUBCUT SCH (10:58)
[2020-04-23] MEDS: ZINC SULFATE 220 MG CAPSULE PO SCH (10:59)
--- NOTE | 2020-04-23 16:11 | PDOC PROGRESS REPORT ---
Subjective Date:: 04/23/20 Subjective:: YAHAIRA SAUER is a 69 year old male with a history of Alzheimer's dementia, s chizophrenia, COPD and hyperlipidemia who is brought in from [facility] after he was noted to have fever and change in his mental status from baseline. Patient is unable to give any meaningful answer and history was from ER signout and chart review. During transfer he had a temperature of 103.1 and he was given Tylenol by EMS which brought down his temperature. On arrival to the ED patient was saturating 87% on room air and was tachycardic. Further work-up indicates: Positive for COVID-19 with imaging findings consistent with Covid infection and currently being admitted to acute medicine floor for management of hypoxic respiratory failure. D1 Hospital stay 04/19/20 patient was seen and examined at bedside. He was on 2L of nasal cannula appears comfortable. He denies chest pain, palpitations or cough. Dementia seems at baseline. D2 Hospital stay 04/20/20 Patient was seen and examined at bedside. Per night nurse he became agitated and needed restraints. Today he was more calm and we were able to take the restraints off of him. He denies any SOB, O2 sat 99% on 3L of NC, so far has shown no increase in O2 needs. D3 hospital stay 04/21/20 Patient was seen and examined at bedside. He was again put back on restraints last night due to sundowning despite frequent re orientation. Otherwise, O2 sat is stable at 2L NC. He has completed Ivermectin doses.We will try to wean him off O2 tomorrow. D4 Hospital stay 04/22/20 Patient was seen and examined at bedside. On restraints again but he's very calm so I removed his restraints, otherwise he is not complaining of any SOB. I have told the nurse to wean him off O2. Otherwise he is doing well in terms of his COVID infection. D5 hospital stay 04/23/20 Patient was seen and examined at bedside. He was noted to be desaturating last night and had to be put back on bipap. He is currently on bipap 50% saturating 94%. He is otherwise stable. He usually starts to get agitated and sundown at around 6 pm requiring geodon. He was diagnosed with C OVID Apr 18 so he is 1 week into his diagnosis and this is the time that patients usually take a turn for the worse. Reason For Visit: ACUTE HYPOXIC RESPIRATORY FAILURE PNUEMONIA DUE TO Physical Exam Vital Signs: Temp Pulse Resp BP Pulse Ox 98.5 F 80 16 136/72 H 86 L 04/23/20 11:54 04/23/20 14:03 04/23/20 14:03 04/23/20 11:54 04/23/20 14:03 Intake & Output 04/22/20 04/23/20 04/24/20 06:59 06:59 06:59 Intake Total 2059 660 Balance 2059 660 Weight 85.7 kg 86.1 kg General appearance: PRESENT: cooperative, mild distress Head exam: PRESENT: atraumatic, normocephalic Eye exam: PRESENT: EOMI, PERRLA Mouth exam: PRESENT: moist Neck exam: PRESENT: full ROM Respiratory exam: PRESENT: clear to auscultation rea, symmetrical Cardiovascular exam: PRESENT: RRR, +S1, +S2 Pulses: PRESENT: +2 pedal pulses bilateral GI/Abdominal exam: PRESENT: normal bowel sounds, soft. ABSENT: rebound, tenderness Extremities exam: PRESENT: full ROM Musculoskeletal exam: PRESENT: full ROM Neurological exam: PRESENT: alert, awake. ABSENT: oriented to person, oriented to place, oriented to time, oriented to situation Psychiatric exam: PRESENT: normal mood Skin exam: PRESENT: normal color Results Laboratory Results: 04/23/20 05:00 04/23/20 05:00 04/23/20 04/23/20 05:00 05:00 WBC 7.7 RBC 4.30 L Hgb 13.3 L Hct 38.1 MCV 89 MCH 30.9 MCHC 34.9 RDW 16.7 H Plt Count 251 Seg Neutrophils % Not Reportable Sodium 140.6 Potassium 3.7 Chloride 104 Carbon Dioxide 27 Anion Gap 10 BUN 15 Creatinine 0.68 Est GFR ( Amer) > 60 Glucose 187 H Calcium 9.1 Total Bilirubin 0.6 AST 140 H Alkaline Phosphatase 57 Total Protein 6.4 Albumin 3.3 L 04/18/20 04/18/20 17:14 21:15 Creatine Kinase 6115 H Troponin I 0.024 Assessment and Plan - Diagnosis (1) Acute respiratory failure with hypoxia Is this a current diagnosis for this admission?: Yes Plan: Patient was brought in after he developed fever and confusion Oxygen saturation was 87% on room air on presentation Tested positive for COVID-19 Chest x-ray showed patchy right midlung opacities Placed patient on dexamethasone, gave first dose of ivermectin Continue zinc, vitamin C, vitamin D, on intranasal oxygen blood culture negative x 48 hrs Closely monitor respiratory parameters (2) Pneumonia due to COVID-19 virus Is this a current diagnosis for this admission?: Yes Plan: Patient currently admitted for hypoxic respiratory failure due to COVID-19 pneumonia continue steroids, 2nd dose of ivermectin given, empiric abx continue O2 support currently on bipap continue vitamin C, vitamin D, zinc unable to address CODE status with the patient due to dementia Continue management as stated above (3) History of COPD Is this a current diagnosis for this admission?: Yes Plan: Continue breathing treatments with DuoNeb as needed (4) Alzheimer's dementia Qualifiers: Alzheimer's disease onset: unspecified onset Is this a current diagnosis for this admission?: Yes Plan: Patient has an advanced dementia Attempt was made to contact next of kin to discuss was unsuccessful(phone number stated in chart out of service) (5) Hypertension Qualifiers: Hypertension type: essential hypertension Qualified Code(s): I10 - Essential (primary) hypertension Is this a current diagnosis for this admission?: Yes Plan: Currently blood pressure is within acceptable limits, will hold antihypertensive medications for now due to volume depletion (6) Hypokalemia Is this a current diagnosis for this admission?: Yes Plan: Serum potassium level was 2.9>3.4>3.7 replace as needed Placed him on telemetry for monitoring Continue monitoring electrolytes and replete as necessary (7) Hyponatremia Is this a current diagnosis for this admission?: Yes Plan: Likely hypovolemic hyponatremia due to volume depletion Continue monitoring BMP and correct electrolytes as necessary (8) Metabolic alkalosis Is this a current diagnosis for this admission?: Yes Plan: Likely from alkalosis from volume depletion encourage PO intake (9) Schizophrenia Is this a current diagnosis for this admission?: Yes Plan: We will continue home medications (10) Volume depletion Is this a current diagnosis for this admission?: Yes Plan: Patient had dry oral mucosa on physical exam Has metabolic alkalosis which is likely due to contraction encourage PO fluid intake (11) Transaminitis Is this a current diagnosis for this admission?: Yes Plan: - AST 366>225, ALT 54>63 - Hepatitis panel negative - statin stopped - Time Time Spent with patient: 15-24 minutes Medications reviewed and adjusted accordingly: Yes Anticipated Discharge Disposition: [facility] Anticipated Discharge Timeframe: tbd
--- NOTE | 2020-04-23 16:36 | RADIOLOGY REPORT (SQ) ---
EXAM DESCRIPTION: CHEST SINGLE VIEW IMAGES COMPLETED DATE/TIME: 04/23/2020 4:19 pm REASON FOR STUDY: desaturation COMPARISON: 04/18/2020 EXAM PARAMETERS: NUMBER OF VIEWS: One view. TECHNIQUE: Single frontal radiographic view of the chest acquired. RADIATION DOSE: NA LIMITATIONS: None. FINDINGS: LUNGS AND PLEURA: Worsening diffuse bilateral patchy consolidation and ground-glass attenu ation throughout both lungs. No large effusion. No pneumothorax. MEDIASTINUM AND HILAR STRUCTURES: No masses. Contour normal. HEART AND VASCULAR STRUCTURES: Enlarged cardiac silhouette, stable. BONES: No acute findings. HARDWARE: None in the chest. OTHER: No other significant finding. IMPRESSION: Worsening patchy bilateral interstitial and alveolar opacities, likely multifocal pneumo loli. Edema is another consideration. No significant effusion. TECHNICAL DOCUMENTATION: JOB ID: [id number] [employer]- All Rights Reserved Reading location - IP/workstation name: [email or web address]
[2020-04-23] MEDS: TRAZODONE HCL 50 MG TABLET PO SCH (22:43)
[2020-04-23] MEDS: DEXAMETHASONE SOD PHOS INJ 10 MG/1 ML VIAL IV SCH (22:43)
[2020-04-23] MEDS: FUROSEMIDE INJ/PF 40 MG/4 ML SDV IV SCH (22:44)
[2020-04-23] MEDS: ZIPRASIDONE MESYLATE INJ/PF 20 MG SDV IM PRN (23:55)
[2020-04-24 07:41] LABS: ABSOLUTE LYMPHOCYTES (AUTO) 0.5 10^3/uL (0.5-4.7); ABSOLUTE MONOCYTES (AUTO) 0.5 10^3/uL (0.1-1.4); ABSOLUTE NEUT (AUTO) 5.6 10^3/uL (1.7-8.2); BASOPHILS % (AUTO) 0.1 % (0-2); HEMATOCRIT 36.9 % (37.9-51.0); HEMOGLOBIN 12.7 g/dL (13.5-17.0); LYMPHOCYTES % (AUTO) 7.9 % (13-45); MEAN CORPUSCULAR HEMOGLOBIN 30.6 pg (27.0-33.4); MEAN CORPUSCULAR HGB CONC 34.3 g/dL (32.0-36.0); MEAN CORPUSCULAR VOLUME 89 fl (80-97); MONOCYTES % (AUTO) 7.1 % (3-13); PLATELET COUNT 267 10^3/uL (150-450); RED BLOOD COUNT 4.14 10^6/uL (4.35-5.55); RED CELL DISTRIBUTION WIDTH 17.3 % (11.5-14.0); SEGMENTED NEUTROPHILS % (AUTO) 84.9 % (42-78); TOTAL CELLS COUNTED % (AUTO) 100 %; WHITE BLOOD COUNT 6.6 10^3/uL (4.0-10.5)
[2020-04-24 07:52] LABS: ALBUMIN 3.2 g/dL (3.5-5.0); ALKALINE PHOSPHATASE 59 U/L (38-126); ANION GAP 5 (5-19); ASPARTATE AMINO TRANSFERASE 97 U/L (17-59); BILIRUBIN,DIRECT 0.2 mg/dL (0.0-0.4); BILIRUBIN,TOTAL 0.5 mg/dL (0.2-1.3); BLOOD UREA NITROGEN 14 mg/dL (7-20); CALCIUM 8.7 mg/dL (8.4-10.2); CARBON DIOXIDE 33 mmol/L (22-30); CHLORIDE 101 mmol/L (98-107); GLUCOSE 220 mg/dL (75-110); POTASSIUM 4.1 mmol/L (3.6-5.0); TOTAL PROTEIN 6.3 g/dL (6.3-8.2)
[2020-04-24] MEDS ORDERED: NORMAL SALINE 250 ML IV PRN (08:02)
[2020-04-24 08:25] LABS: C-REACTIVE PROTEIN 239.1 mg/L (<10.0)
[2020-04-24] MEDS: IPRATROPIUM/ALBUTEROL 0.5-2.5 MG/3 ML AMPUL NEB SCH ×3 (09:20→20:40)
[2020-04-24] MEDS ORDERED: REMDESIVIR 200 MG in NORMAL SALINE 250 ML IV ONE (10:30)
[2020-04-24] MEDS: CHOLECALCIFEROL (D3) 1,000 UNIT (25 MCG) TABLET PO SCH (11:05)
[2020-04-24] MEDS: ASCORBIC ACID 500 MG TABLET PO SCH ×2 (11:05→18:20)
[2020-04-24] MEDS: DIVALPROEX SODIUM 500 MG TAB.SR.24H PO SCH (11:05)
[2020-04-24] MEDS: ENOXAPARIN SODIUM INJ 40 MG/0.4 ML DISP.SYRIN SUBCUT SCH (11:06)
[2020-04-24] MEDS: BENZTROPINE MESYLATE 1 MG TABLET PO SCH ×2 (11:06→18:20)
[2020-04-24] MEDS: FAMOTIDINE 20 MG TABLET PO SCH ×2 (11:06→22:00)
[2020-04-24] MEDS: FUROSEMIDE INJ/PF 40 MG/4 ML SDV IV SCH (11:06)
[2020-04-24] MEDS: ZINC SULFATE 220 MG CAPSULE PO SCH (12:43)
--- NOTE | 2020-04-24 14:26 | PDOC PROGRESS REPORT ---
Subjective Date:: 04/24/20 Subjective:: YAHAIRA SAUER is a 69 year old male with a history of Alzheimer's dementia, s chizophrenia, COPD and hyperlipidemia who is brought in from [facility] after he was noted to have fever and change in his mental status from baseline. Patient is unable to give any meaningful answer and history was from ER signout and chart review. During transfer he had a temperature of 103.1 and he was given Tylenol by EMS which brought down his temperature. On arrival to the ED patient was saturating 87% on room air and was tachycardic. Further work-up indicates: Positive for COVID-19 with imaging findings consistent with Covid infection and currently being admitted to acute medicine floor for management of hypoxic respiratory failure. D1 Hospital stay 04/19/20 patient was seen and examined at bedside. He was on 2L of nasal cannula appears comfortable. He denies chest pain, palpitations or cough. Dementia seems at baseline. D2 Hospital stay 04/20/20 Patient was seen and examined at bedside. Per night nurse he became agitated and needed restraints. Today he was more calm and we were able to take the restraints off of him. He denies any SOB, O2 sat 99% on 3L of NC, so far has shown no increase in O2 needs. D3 hospital stay 04/21/20 Patient was seen and examined at bedside. He was again put back on restraints last night due to sundowning despite frequent re orientation. Otherwise, O2 sat is stable at 2L NC. He has completed Ivermectin doses.We will try to wean him off O2 tomorrow. D4 Hospital stay 04/22/20 Patient was seen and examined at bedside. On restraints again but he's very calm so I removed his restraints, otherwise he is not complaining of any SOB. I have told the nurse to wean him off O2. Otherwise he is doing well in terms of his COVID infection. D5 hospital stay 04/23/20 Patient was seen and examined at bedside. He was noted to be desaturating last night and had to be put back on bipap. He is currently on bipap 50% saturating 94%. He is otherwise stable. He usually starts to get agitated and sundown at around 6 pm requiring geodon. He was diagnosed with C OVID Apr 18 so he is 1 week into his diagnosis and this is the time that patients usually take a turn for the worse. D6 hospital stay 04/24/20 Patient was seen and examined at bedside. He is still on bipap 70% FIO2 to maintain sats above 91%. Repeat CXR showed worsening patchy bilateral interstitial and alveolar opacities. He has previously received Ivermectin and has been on steroids since admission. He was started on remdesivir today for worsening pneumonia, also on levaquin for possible HAP pending Procalcitonin and repeat blood cultures. Also received convalescent plasma. I was able to speak to his sister Ritchie and her and after discussion they stated that they want him DNR but ther are OK for Intubation if its for respiratory failure. Please refer to ACP note. Reason For Visit: ACUTE HYPOXIC RESPIRATORY FAILURE PNUEMONIA DUE TO Physical Exam Vital Signs: Temp Pulse Resp BP Pulse Ox 98.2 F 91 30 H 138/77 H 98 04/24/20 12:20 04/24/20 12:20 04/24/20 12:20 04/24/20 12:20 04/24/20 12:20 Intake & Output 04/23/20 04/24/20 04/25/20 06:59 06:59 06:59 Intake Total 660 640 0 Output Total 250 Balance 660 390 0 Weight 86.1 kg 82.4 kg General appearance: PRESENT: cooperative, mild distress Head exam: PRESENT: atraumatic, normocephalic Eye exam: PRESENT: EOMI, PERRLA Mouth exam: PRESENT: moist Neck exam: PRESENT: full ROM Respiratory exam: PRESENT: clear to auscultation rea, symmetrical, unlabored Cardiovascular exam: PRESENT: RRR, +S1, +S2 GI/Abdominal exam: PRESENT: normal bowel sounds, soft. ABSENT: rebound Extremities exam: PRESENT: full ROM Musculoskeletal exam: PRESENT: full ROM Neurological exam: PRESENT: alert, awake. ABSENT: oriented to person, oriented to place, oriented to time, oriented to situation Psychiatric exam: PRESENT: normal mood Skin exam: PRESENT: normal color Results Laboratory Results: 04/24/20 06:41 04/24/20 06:41 04/24/20 04/24/20 04/24/20 06:41 06:41 08:21 WBC 6.6 RBC 4.14 L Hgb 12.7 L Hct 36.9 L MCV 89 MCH 30.6 MCHC 34.3 RDW 17.3 H Plt Count 267 Seg Neutrophils % 84.9 H Sodium 138.8 Potassium 4.1 Chloride 101 Carbon Dioxide 33 H Anion Gap 5 BUN 14 Creatinine 0.71 Est GFR ( Amer) > 60 Glucose 220 H Calcium 8.7 Ferritin 347.00 Total Bilirubin 0.5 AST 97 H Alkaline Phosphatase 59 C-Reactive Protein 239.1 H Total Protein 6.3 Albumin 3.2 L Blood Type B POSITIVE 04/18/20 18:45 Blood Blood Culture - Final NO GROWTH IN 5 DAYS 04/18/20 17:14 Blood Blood Culture - Final NO GROWTH IN 5 DAYS 04/18/20 04/18/20 04/24/20 17:14 21:15 06:41 Creatine Kinase 6115 H Troponin I 0.024 NT-Pro-B Natriuret Pep 535 H Impressions: Chest X-Ray 04/23/20 00:00 IMPRESSION: Worsening patchy bilateral interstitial and alveolar opacities, likely multifocal pneumonia. Edema is another consideration. No significant effusion. Assessment and Plan - Diagnosis (1) Acute respiratory failure with hypoxia Is this a current diagnosis for this admission?: Yes Plan: Patient was brought in after he developed fever and confusion Now on bipap due to worsening hypoxia Tested positive for COVID-19 Chest x-ray showed worsening multifocal pneumonia on dexa 6 Iv daily completed ivermectin Continue zinc, vitamin C, vitamin D, on intranasal oxygen blood culture negative x 48 hrs Closely monitor respiratory parameters (2) Pneumonia due to COVID-19 virus Is this a current diagnosis for this admission?: Yes Plan: Patient currently admitted for hypoxic respiratory failure due to COVID-19 pneumonia CRP increased from 82.9>239 repeat CXR showed worsening multifocal pneumonia started on remdesivir continue steroids, 2nd dose of ivermectin given, continue O2 support currently on bipap on lasix daily due to elevated BNP monitor for volume depletion and alkalosis continue vitamin C, vitamin D, zinc Continue management as stated above (3) History of COPD Is this a current diagnosis for this admission?: Yes Plan: Continue breathing treatments with DuoNeb as needed (4) Alzheimer's dementia Qualifiers: Alzheimer's disease onset: unspecified onset Is this a current diagnosis for this admission?: Yes Plan: Patient has an advanced dementia Was able to reach sister Ritchie RUBIO and she wants him DNR however she is OK for intubation in case of respiratory failure due to COVID pneumonia (5) Hypertension Qualifiers: Hypertension type: essential hypertension Qualified Code(s): I10 - Essential (primary) hypertension Is this a current diagnosis for this admission?: Yes Plan: Currently blood pressure is within acceptable limits, will hold antihypertensive medications for now due to volume depletion (6) Hypokalemia Is this a current diagnosis for this admission?: Yes Plan: Serum potassium level was 2.9>3.4>3.7 replace as needed Placed him on telemetry for monitoring Continue monitoring electrolytes and replete as necessary (7) Hyponatremia Is this a current diagnosis for this admission?: Yes Plan: RESOLVED Likely hypovolemic hyponatremia due to volume depletion Continue monitoring BMP and correct electrolytes as necessary (8) Metabolic alkalosis Is this a current diagnosis for this admission?: Yes Plan: Likely from alkalosis from volume depletion encourage PO intake (9) Schizophrenia Is this a current diagnosis for this admission?: Yes Plan: receives [facility] for acute agitation monitor QTc (10) Transaminitis Is this a current diagnosis for this admission?: Yes Plan: - AST 366>225, ALT 54>63 - Hepatitis panel negative - statin stopped - Time Time Spent with patient: 25-34 minutes Medications reviewed and adjusted accordingly: Yes Anticipated Discharge Disposition: [facility] Anticipated Discharge Timeframe: tbd
--- NOTE | 2020-04-24 14:31 | ADVANCED CARE ---
- Diagnosis (1) Acute respiratory failure with hypoxia Diagnosis Current: Yes (2) Pneumonia due to COVID-19 virus Diagnosis Current: Yes (3) History of COPD Diagnosis Current: Yes (4) Alzheimer's dementia Diagnosis Current: Yes (5) Hypertension Diagnosis Current: Yes (6) Hypokalemia Diagnosis Current: Yes (7) Hyponatremia Diagnosis Current: Yes (8) Metabolic alkalosis Diagnosis Current: Yes (9) Schizophrenia Diagnosis Current: Yes (10) Transaminitis Diagnosis Current: Yes Attendance: sister and HCPJYOTI Dugan, brother in law and I over the phone Resuscitation Status: Do Not Resuscitate Discussion: I was able to talk to patient's sister and designated healthcare power of [place] attorney Ritchie Devine ) as well as the patient's [id number] and Ms. Dugan's to discuss the patient's CODE STATUS. Upon speaking to them and discussing Mr. Reynoso's current medical condition they have opted to change his CODE STATUS to DO NOT RESUSCITATE in the event of cardiac arrest. They stated that he the patient would not want to be on prolonged life support if the re is no chance of recovery. However dated stated that they are okay for intubation in case he will needed for acute respiratory failure secondary to his Covid pneumonia. CODE STATUS changed to DO NOT RESUSCITATE okay for intubation. Care Planning Goals: Address CODE STATUS and establish goals of care. Document(s) Completed: None Time Spent: more than 30 minutes
[2020-04-24] MEDS: DEXAMETHASONE SOD PHOS INJ 10 MG/1 ML VIAL IV SCH (22:00)
[2020-04-24] MEDS: TRAZODONE HCL 50 MG TABLET PO SCH (22:00)
--- NOTE | 2020-04-24 22:42 | EKG REPORT ---
SEVERITY:- NORMAL ECG - SINUS RHYTHM : Confirmed by: Marcos Kearney 24-Apr-2020 22:40:49
[2020-04-25 05:43] LABS: ABSOLUTE LYMPHOCYTES (AUTO) 0.5 10^3/uL (0.5-4.7); ABSOLUTE MONOCYTES (AUTO) 0.5 10^3/uL (0.1-1.4); ABSOLUTE NEUT (AUTO) 6.1 10^3/uL (1.7-8.2); BASOPHILS % (AUTO) 0.4 % (0-2); HEMATOCRIT 35.6 % (37.9-51.0); HEMOGLOBIN 12.2 g/dL (13.5-17.0); LYMPHOCYTES % (AUTO) 7.5 % (13-45); MEAN CORPUSCULAR HEMOGLOBIN 30.4 pg (27.0-33.4); MEAN CORPUSCULAR HGB CONC 34.3 g/dL (32.0-36.0); MEAN CORPUSCULAR VOLUME 89 fl (80-97); MONOCYTES % (AUTO) 7.4 % (3-13); PLATELET COUNT 257 10^3/uL (150-450); RED BLOOD COUNT 4.01 10^6/uL (4.35-5.55); RED CELL DISTRIBUTION WIDTH 16.9 % (11.5-14.0); SEGMENTED NEUTROPHILS % (AUTO) 84.7 % (42-78); TOTAL CELLS COUNTED % (AUTO) 100 %; WHITE BLOOD COUNT 7.2 10^3/uL (4.0-10.5)
[2020-04-25 06:08] LABS: ALBUMIN 3.2 g/dL (3.5-5.0); ALKALINE PHOSPHATASE 63 U/L (38-126); ANION GAP 9 (5-19); ASPARTATE AMINO TRANSFERASE 84 U/L (17-59); BILIRUBIN,DIRECT 0.3 mg/dL (0.0-0.4); BILIRUBIN,TOTAL 0.5 mg/dL (0.2-1.3); BLOOD UREA NITROGEN 17 mg/dL (7-20); CALCIUM 8.9 mg/dL (8.4-10.2); CARBON DIOXIDE 31 mmol/L (22-30); CHLORIDE 97 mmol/L (98-107); GLUCOSE 294 mg/dL (75-110); POTASSIUM 4.1 mmol/L (3.6-5.0); TOTAL PROTEIN 6.4 g/dL (6.3-8.2)
[2020-04-25] MEDS ORDERED: GLUCAGON,HUMAN RECOMB 1 MG INJ IM PRN (07:41)
[2020-04-25] MEDS ORDERED: DEXTROSE 50%-WATER 25 GM/50 ML DISP.SYRIN IV PRN ×2 (07:41)
[2020-04-25] MEDS ORDERED: DEXTROSE 40% GEL 15 GM TUBE PO PRN ×2 (07:41)
[2020-04-25] MEDS: INSULIN LISPRO 100 UNIT/ML 3 ML VIAL SUBCUT SCH ×4 (08:16→21:18)
[2020-04-25] MEDS: IPRATROPIUM/ALBUTEROL 0.5-2.5 MG/3 ML AMPUL NEB SCH ×3 (08:42→21:00)
[2020-04-25] MEDS: BENZTROPINE MESYLATE 1 MG TABLET PO SCH ×2 (11:00→17:24)
[2020-04-25] MEDS: DIVALPROEX SODIUM 500 MG TAB.SR.24H PO SCH (11:00)
[2020-04-25] MEDS: ZINC SULFATE 220 MG CAPSULE PO SCH (11:00)
[2020-04-25] MEDS: FUROSEMIDE INJ/PF 40 MG/4 ML SDV IV SCH (11:00)
[2020-04-25] MEDS: ASCORBIC ACID 500 MG TABLET PO SCH ×2 (11:00→17:24)
[2020-04-25] MEDS: ENOXAPARIN SODIUM INJ 40 MG/0.4 ML DISP.SYRIN SUBCUT SCH (11:01)
[2020-04-25] MEDS: CHOLECALCIFEROL (D3) 1,000 UNIT (25 MCG) TABLET PO SCH (11:01)
[2020-04-25] MEDS: FAMOTIDINE 20 MG TABLET PO SCH ×2 (11:01→21:19)
[2020-04-25] MEDS: LEVOFLOXACIN 750 MG/D5W RTU 750 MG/150 ML RTUPB IV SCH (11:01)
[2020-04-25] MEDS: REMDESIVIR 100 MG in NORMAL SALINE 250 ML IV SCH (12:48)
--- NOTE | 2020-04-25 13:27 | PDOC PROGRESS REPORT ---
Subjective Date:: 04/25/20 Subjective:: YAHAIRA SAUER is a 69 year old male with a history of Alzheimer's dementia, s chizophrenia, COPD and hyperlipidemia who is brought in from [facility] after he was noted to have fever and change in his mental status from baseline. Patient is unable to give any meaningful answer and history was from ER signout and chart review. During transfer he had a temperature of 103.1 and he was given Tylenol by EMS which brought down his temperature. On arrival to the ED patient was saturating 87% on room air and was tachycardic. Further work-up indicates: Positive for COVID-19 with imaging findings consistent with Covid infection and currently being admitted to acute medicine floor for management of hypoxic respiratory failure. D1 Hospital stay 04/19/20 patient was seen and examined at bedside. He was on 2L of nasal cannula appears comfortable. He denies chest pain, palpitations or cough. Dementia seems at baseline. D2 Hospital stay 04/20/20 Patient was seen and examined at bedside. Per night nurse he became agitated and needed restraints. Today he was more calm and we were able to take the restraints off of him. He denies any SOB, O2 sat 99% on 3L of NC, so far has shown no increase in O2 needs. D3 hospital stay 04/21/20 Patient was seen and examined at bedside. He was again put back on restraints last night due to sundowning despite frequent re orientation. Otherwise, O2 sat is stable at 2L NC. He has completed Ivermectin doses.We will try to wean him off O2 tomorrow. D4 Hospital stay 04/22/20 Patient was seen and examined at bedside. On restraints again but he's very calm so I removed his restraints, otherwise he is not complaining of any SOB. I have told the nurse to wean him off O2. Otherwise he is doing well in terms of his COVID infection. D5 hospital stay 04/23/20 Patient was seen and examined at bedside. He was noted to be desaturating last night and had to be put back on bipap. He is currently on bipap 50% saturating 94%. He is otherwise stable. He usually starts to get agitated and sundown at around 6 pm requiring geodon. He was diagnosed with C OVID Apr 18 so he is 1 week into his diagnosis and this is the time that patients usually take a turn for the worse. D6 hospital stay 04/24/20 Patient was seen and examined at bedside. He is still on bipap 70% FIO2 to maintain sats above 91%. Repeat CXR showed worsening patchy bilateral interstitial and alveolar opacities. He has previously received Ivermectin and has been on steroids since admission. He was started on remdesivir today for worsening pneumonia, also on levaquin for possible HAP pending Procalcitonin and repeat blood cultures. Also received convalescent plasma. I was able to speak to his sister Ritchie and her and after discussion they stated that they want him DNR but they are OK for Intubation if its for respiratory failure. Please refer to ACP note. D7 Hospital stay 04/25/20 Patient was seen and examined at bedside. He is more agitated today compared to yesterday, would intermittently take his bipap off. Currently at 65% FIO2 saturating 95%. Reason For Visit: ACUTE HYPOXIC RESPIRATORY FAILURE PNUEMONIA DUE TO Physical Exam Vital Signs: Temp Pulse Resp BP Pulse Ox 98.2 F 89 24 H 147/87 H 100 04/25/20 11:50 04/25/20 11:50 04/25/20 11:50 04/25/20 11:50 04/25/20 11:50 Intake & Output 04/24/20 04/25/20 04/26/20 06:59 06:59 06:59 Intake Total 640 1332 150 Output Total 250 250 Balance 390 1082 150 Weight 82.4 kg 81.7 kg General appearance: PRESENT: mild distress, well-developed, well-nourished Head exam: PRESENT: atraumatic, normocephalic Eye exam: PRESENT: EOMI, PERRLA Mouth exam: PRESENT: moist Neck exam: PRESENT: full ROM Respiratory exam: PRESENT: rales, symmetrical, tachypnea Cardiovascular exam: PRESENT: RRR, +S1, +S2 Pulses: PRESENT: +2 pedal pulses bilateral GI/Abdominal exam: PRESENT: normal bowel sounds, soft. ABSENT: rebound, tenderness Neurological exam: PRESENT: alert, awake. ABSENT: oriented to person, oriented to place, oriented to time, oriented to situation Psychiatric exam: PRESENT: normal mood Skin exam: PRESENT: normal color Results Laboratory Results: 04/25/20 05:01 04/25/20 05:01 01/10/21 01/10/21 05:01 05:01 WBC 7.2 RBC 4.01 L Hgb 12.2 L Hct 35.6 L MCV 89 MCH 30.4 MCHC 34.3 RDW 16.9 H Plt Count 257 Seg Neutrophils % 84.7 H Sodium 136.7 L Potassium 4.1 Chloride 97 L Carbon Dioxide 31 H Anion Gap 9 BUN 17 Creatinine 0.66 Est GFR ( Amer) > 60 Glucose 294 H Calcium 8.9 Total Bilirubin 0.5 AST 84 H Alkaline Phosphatase 63 Total Protein 6.4 Albumin 3.2 L 04/18/20 04/18/20 04/24/20 17:14 21:15 06:41 Creatine Kinase 6115 H Troponin I 0.024 NT-Pro-B Natriuret Pep 535 H Impressions: Chest X-Ray 04/23/20 00:00 IMPRESSION: Worsening patchy bilateral interstitial and alveolar opacities, likely multifocal pneumonia. Edema is another consideration. No significant effusion. Assessment and Plan - Diagnosis (1) Acute respiratory failure with hypoxia Is this a current diagnosis for this admission?: Yes Plan: Patient was brought in after he developed fever and confusion Now on bipap due to worsening hypoxia Tested positive for COVID-19 Chest x-ray showed worsening multifocal pneumonia on dexa 6 Iv daily completed ivermectin Continue zinc, vitamin C, vitamin D, on intranasal oxygen blood culture negative x 48 hrs Closely monitor respiratory parameters (2) Pneumonia due to COVID-19 virus Is this a current diagnosis for this admission?: Yes Plan: Patient currently admitted for hypoxic respiratory failure due to COVID-19 pneumonia CRP increased from 82.9>239 repeat CXR showed worsening multifocal pneumonia started on remdesivir continue steroids, 2nd dose of ivermectin given, continue O2 support currently on bipap on lasix daily due to elevated BNP monitor for volume depletion and alkalosis continue vitamin C, vitamin D, zinc Continue management as stated above (3) History of COPD Is this a current diagnosis for this admission?: Yes Plan: Continue breathing treatments with DuoNeb as needed started on breo (4) Alzheimer's dementia Qualifiers: Alzheimer's disease onset: unspecified onset Is this a current diagnosis for this admission?: Yes Plan: Patient has an advanced dementia Was able to reach sister Ritchie RUBIO and she wants him DNR however she is OK for intubation in case of respiratory failure due to COVID pneumonia (5) Hypertension Qualifiers: Hypertension type: essential hypertension Qualified Code(s): I10 - Essential (primary) hypertension Is this a current diagnosis for this admission?: Yes Plan: Currently blood pressure is within acceptable limits, will hold antihypertensive medications for now due to volume depletion (6) Hypokalemia Is this a current diagnosis for this admission?: Yes Plan: Serum potassium level was 2.9>3.4>3.7 replace as needed Placed him on telemetry for monitoring Continue monitoring electrolytes and replete as necessary (7) Hyponatremia Is this a current diagnosis for this admission?: Yes Plan: RESOLVED Likely hypovolemic hyponatremia due to volume depletion Continue monitoring BMP and correct electrolytes as necessary (8) Metabolic alkalosis Is this a current diagnosis for this admission?: Yes Plan: Likely from alkalosis from volume depletion encourage PO intake (9) Schizophrenia Is this a current diagnosis for this admission?: Yes Plan: receives [facility] for acute agitation monitor QTc (10) Transaminitis Is this a current diagnosis for this admission?: Yes Plan: - AST 366>225, ALT 54>63 - Hepatitis panel negative - statin stopped - Time Time Spent with patient: 25-34 minutes Medications reviewed and adjusted accordingly: Yes Anticipated Discharge [facility] Anticipated Discharge Timeframe: tbd
[2020-04-25] MEDS: TRAZODONE HCL 50 MG TABLET PO SCH (21:19)
[2020-04-25] MEDS: DEXAMETHASONE SOD PHOS INJ 10 MG/1 ML VIAL IV SCH (21:19)
--- NOTE | 2020-04-25 22:39 | EKG REPORT ---
SEVERITY:- ABNORMAL ECG - SINUS OR ECTOPIC ATRIAL RHYTHM PROBABLE POSTERIOR INFARCT : Confirmed by: Marcos Kearney 25-Apr-2020 22:38:56
[2020-04-26 06:29] LABS: ABSOLUTE LYMPHOCYTES (AUTO) 0.7 10^3/uL (0.5-4.7); ABSOLUTE MONOCYTES (AUTO) 0.5 10^3/uL (0.1-1.4); BASOPHILS % (AUTO) 0.5 % (0-2); HEMATOCRIT 35.9 % (37.9-51.0); HEMOGLOBIN 12.3 g/dL (13.5-17.0); LYMPHOCYTES % (AUTO) 8.8 % (13-45); MEAN CORPUSCULAR HEMOGLOBIN 30.2 pg (27.0-33.4); MEAN CORPUSCULAR HGB CONC 34.2 g/dL (32.0-36.0); MEAN CORPUSCULAR VOLUME 88 fl (80-97); MONOCYTES % (AUTO) 5.5 % (3-13); PLATELET COUNT 277 10^3/uL (150-450); RED BLOOD COUNT 4.07 10^6/uL (4.35-5.55); RED CELL DISTRIBUTION WIDTH 16.7 % (11.5-14.0); SEGMENTED NEUTROPHILS % (AUTO) 85.2 % (42-78); TOTAL CELLS COUNTED % (AUTO) 100 %; WHITE BLOOD COUNT 8.2 10^3/uL (4.0-10.5)
[2020-04-26 07:06] LABS: ALBUMIN 3.4 g/dL (3.5-5.0); ALKALINE PHOSPHATASE 63 U/L (38-126); ANION GAP 9 (5-19); ASPARTATE AMINO TRANSFERASE 60 U/L (17-59); BILIRUBIN,DIRECT 0.3 mg/dL (0.0-0.4); BILIRUBIN,TOTAL 0.6 mg/dL (0.2-1.3); BLOOD UREA NITROGEN 17 mg/dL (7-20); CALCIUM 9.2 mg/dL (8.4-10.2); CARBON DIOXIDE 33 mmol/L (22-30); CHLORIDE 94 mmol/L (98-107); GLUCOSE 198 mg/dL (75-110); POTASSIUM 4.5 mmol/L (3.6-5.0); TOTAL PROTEIN 6.9 g/dL (6.3-8.2)
[2020-04-26] MEDS: IPRATROPIUM/ALBUTEROL 0.5-2.5 MG/3 ML AMPUL NEB SCH ×3 (08:12→21:02)
[2020-04-26] MEDS: INSULIN LISPRO 100 UNIT/ML 3 ML VIAL SUBCUT SCH ×4 (08:25→22:16)
[2020-04-26] MEDS: FLUTICASONE/VILANTEROL 100-25 MCG/DOSE IH SCH (09:10)
[2020-04-26] MEDS: LEVOFLOXACIN 750 MG/D5W RTU 750 MG/150 ML RTUPB IV SCH (09:11)
[2020-04-26] MEDS: ENOXAPARIN SODIUM INJ 40 MG/0.4 ML DISP.SYRIN SUBCUT SCH (09:11)
[2020-04-26] MEDS: CHOLECALCIFEROL (D3) 1,000 UNIT (25 MCG) TABLET PO SCH (09:11)
[2020-04-26] MEDS: ZINC SULFATE 220 MG CAPSULE PO SCH (09:11)
[2020-04-26] MEDS: BENZTROPINE MESYLATE 1 MG TABLET PO SCH ×2 (09:11→17:17)
[2020-04-26] MEDS: FAMOTIDINE 20 MG TABLET PO SCH ×2 (09:11→22:19)
[2020-04-26] MEDS: ASCORBIC ACID 500 MG TABLET PO SCH ×2 (09:11→17:17)
[2020-04-26] MEDS: DIVALPROEX SODIUM 500 MG TAB.SR.24H PO SCH (11:50)
[2020-04-26] MEDS: REMDESIVIR 100 MG in NORMAL SALINE 250 ML IV SCH (11:50)
--- NOTE | 2020-04-26 16:15 | PDOC PROGRESS REPORT ---
Subjective Date:: 04/26/20 Subjective:: YAHAIRA SAUER is a 69 year old male with a history of Alzheimer's dementia, s chizophrenia, COPD and hyperlipidemia who is brought in from [facility] after he was noted to have fever and change in his mental status from baseline. Patient is unable to give any meaningful answer and history was from ER signout and chart review. During transfer he had a temperature of 103.1 and he was given Tylenol by EMS which brought down his temperature. On arrival to the ED patient was saturating 87% on room air and was tachycardic. Further work-up indicates: Positive for COVID-19 with imaging findings consistent with Covid infection and currently being admitted to acute medicine floor for management of hypoxic respiratory failure. D1 Hospital stay 04/19/20 patient was seen and examined at bedside. He was on 2L of nasal cannula appears comfortable. He denies chest pain, palpitations or cough. Dementia seems at baseline. D2 Hospital stay 04/20/20 Patient was seen and examined at bedside. Per night nurse he became agitated and needed restraints. Today he was more calm and we were able to take the restraints off of him. He denies any SOB, O2 sat 99% on 3L of NC, so far has shown no increase in O2 needs. D3 hospital stay 04/21/20 Patient was seen and examined at bedside. He was again put back on restraints last night due to sundowning despite frequent re orientation. Otherwise, O2 sat is stable at 2L NC. He has completed Ivermectin doses.We will try to wean him off O2 tomorrow. D4 Hospital stay 04/22/20 Patient was seen and examined at bedside. On restraints again but he's very calm so I removed his restraints, otherwise he is not complaining of any SOB. I have told the nurse to wean him off O2. Otherwise he is doing well in terms of his COVID infection. D5 hospital stay 04/23/20 Patient was seen and examined at bedside. He was noted to be desaturating last night and had to be put back on bipap. He is currently on bipap 50% saturating 94%. He is otherwise stable. He usually starts to get agitated and sundown at around 6 pm requiring geodon. He was diagnosed with C OVID Apr 18 so he is 1 week into his diagnosis and this is the time that patients usually take a turn for the worse. D6 hospital stay 04/24/20 Patient was seen and examined at bedside. He is still on bipap 70% FIO2 to maintain sats above 91%. Repeat CXR showed worsening patchy bilateral interstitial and alveolar opacities. He has previously received Ivermectin and has been on steroids since admission. He was started on remdesivir today for worsening pneumonia, also on levaquin for possible HAP pending Procalcitonin and repeat blood cultures. Also received convalescent plasma. I was able to speak to his sister Ritchie and her and after discussion they stated that they want him DNR but they are OK for Intubation if its for respiratory failure. Please refer to ACP note. D7 Hospital stay 04/25/20 Patient was seen and examined at bedside. He is more agitated today compared to yesterday, would intermittently take his bipap off. Currently at 65% FIO2 saturating 95%. D8 hospital stay 04/26/20 Patient seen and examined at bedside. He's calm this morning, not taking off his bipap mask. Currently at 60% FIO2 on BIPAP. Reason For Visit: ACUTE HYPOXIC RESPIRATORY FAILURE PNUEMONIA DUE TO Physical Exam Vital Signs: Temp Pulse Resp BP Pulse Ox 98.2 F 90 20 124/80 90 L 04/26/20 11:35 04/26/20 14:09 04/26/20 14:09 04/26/20 11:35 04/26/20 14:09 Intake & Output 04/25/20 04/26/20 04/27/20 06:59 06:59 06:59 Intake Total 1332 1820 400 Output Total 250 995 Balance 1082 825 400 Weight 81.7 kg 81.6 kg General appearance: PRESENT: cooperative, mild distress Head exam: PRESENT: atraumatic, normocephalic Eye exam: PRESENT: EOMI, PERRLA Mouth exam: PRESENT: moist Neck exam: PRESENT: full ROM Cardiovascular exam: PRESENT: RRR, +S1, +S2 GI/Abdominal exam: PRESENT: normal bowel sounds, soft. ABSENT: rebound, tenderness Extremities exam: PRESENT: full ROM Musculoskeletal exam: PRESENT: full ROM Neurological exam: PRESENT: alert, awake Psychiatric exam: PRESENT: normal mood Skin exam: PRESENT: normal color Results Laboratory Results: 04/26/20 05:39 04/26/20 05:39 04/26/20 04/26/20 05:39 05:39 WBC 8.2 RBC 4.07 L Hgb 12.3 L Hct 35.9 L MCV 88 MCH 30.2 MCHC 34.2 RDW 16.7 H Plt Count 277 Seg Neutrophils % 85.2 H Sodium 135.7 L Potassium 4.5 Chloride 94 L Carbon Dioxide 33 H Anion Gap 9 BUN 17 Creatinine 0.61 Est GFR ( Amer) > 60 Glucose 198 H Calcium 9.2 Total Bilirubin 0.6 AST 60 H Alkaline Phosphatase 63 Total Protein 6.9 Albumin 3.4 L 04/18/20 04/18/20 04/24/20 17:14 21:15 06:41 Creatine Kinase 6115 H Troponin I 0.024 NT-Pro-B Natriuret Pep 535 H Impressions: Chest X-Ray 04/23/20 00:00 IMPRESSION: Worsening patchy bilateral interstitial and alveolar opacities, likely multifocal pneumonia. Edema is another consideration. No significant effusion. Assessment and Plan - Diagnosis (1) Acute respiratory failure with hypoxia Is this a current diagnosis for this admission?: Yes Plan: Patient was brought in after he developed fever and confusion Now on bipap due to worsening hypoxia Tested positive for COVID-19 Chest x-ray showed worsening multifocal pneumonia on dexa 6 Iv daily completed ivermectin started on remdesivir Continue zinc, vitamin C, vitamin D, on intranasal oxygen blood culture negative x 48 hrs Closely monitor respiratory parameters (2) Pneumonia due to COVID-19 virus Is this a current diagnosis for this admission?: Yes Plan: Patient currently admitted for hypoxic respiratory failure due to COVID-19 pneumonia CRP increased from 82.9>239 repeat CXR showed worsening multifocal pneumonia started on remdesivir continue steroids, 2nd dose of ivermectin given, continue O2 support currently on bipap on lasix daily due to elevated BNP monitor for volume depletion and alkalosis continue vitamin C, vitamin D, zinc Continue management as stated above (3) History of COPD Is this a current diagnosis for this admission?: Yes Plan: Continue breathing treatments with DuoNeb as needed started on breo (4) Alzheimer's dementia Qualifiers: Alzheimer's disease onset: unspecified onset Is this a current diagnosis for this admission?: Yes Plan: Patient has an advanced dementia Was able to reach sister Ritchie RUBIO and she wants him DNR however she is OK for intubation in case of respiratory failure due to COVID pneumonia (5) Hypertension Qualifiers: Hypertension type: essential hypertension Qualified Code(s): I10 - Essential (primary) hypertension Is this a current diagnosis for this admission?: Yes Plan: Currently blood pressure is within acceptable limits, will hold antihypertensive medications for now due to volume depletion (6) Hypokalemia Is this a current diagnosis for this admission?: Yes Plan: Serum potassium level was 2.9>3.4>3.7 replace as needed Placed him on telemetry for monitoring Continue monitoring electrolytes and replete as necessary (7) Hyponatremia Is this a current diagnosis for this admission?: Yes Plan: RESOLVED Likely hypovolemic hyponatremia due to volume depletion Continue monitoring BMP and correct electrolytes as necessary (8) Metabolic alkalosis Is this a current diagnosis for this admission?: Yes Plan: Likely from alkalosis from volume depletion encourage PO intake (9) Schizophrenia Is this a current diagnosis for this admission?: Yes Plan: receives [facility] for acute agitation monitor QTc (10) Transaminitis Is this a current diagnosis for this admission?: Yes Plan: - AST 366>225, ALT 54>63 - Hepatitis panel negative - statin stopped - Time Time Spent with patient: 15-24 minutes Medications reviewed and adjusted accordingly: Yes Anticipated Discharge [facility]position: [facility] Anticipated Discharge Timeframe: tbd
--- NOTE | 2020-04-26 18:12 | EKG REPORT ---
SEVERITY:- DEFECTIVE ECG - PROBABLE SINUS RHYTHM WITH BASELINE ARTIFACT.REPEAT EKG : Confirmed by: Jeanie Woodall MD 26-Apr-2020 18:12:05
[2020-04-26] MEDS: DEXAMETHASONE SOD PHOS INJ 10 MG/1 ML VIAL IV SCH (22:18)
[2020-04-26] MEDS: TRAZODONE HCL 50 MG TABLET PO SCH (22:19)
[2020-04-27 06:16] LABS: ABSOLUTE LYMPHOCYTES (AUTO) 0.6 10^3/uL (0.5-4.7); ABSOLUTE MONOCYTES (AUTO) 0.5 10^3/uL (0.1-1.4); ABSOLUTE NEUT (AUTO) 8.4 10^3/uL (1.7-8.2); HEMATOCRIT 34.7 % (37.9-51.0); MEAN CORPUSCULAR HEMOGLOBIN 30.6 pg (27.0-33.4); MEAN CORPUSCULAR HGB CONC 34.6 g/dL (32.0-36.0); MEAN CORPUSCULAR VOLUME 89 fl (80-97); MONOCYTES % (AUTO) 5.2 % (3-13); PLATELET COUNT 219 10^3/uL (150-450); RED BLOOD COUNT 3.92 10^6/uL (4.35-5.55); RED CELL DISTRIBUTION WIDTH 16.7 % (11.5-14.0); SEGMENTED NEUTROPHILS % (AUTO) 88.8 % (42-78); TOTAL CELLS COUNTED % (AUTO) 100 %; WHITE BLOOD COUNT 9.5 10^3/uL (4.0-10.5)
[2020-04-27 06:43] LABS: ALKALINE PHOSPHATASE 61 U/L (38-126); ANION GAP 8 (5-19); ASPARTATE AMINO TRANSFERASE 44 U/L (17-59); BILIRUBIN,DIRECT 0.3 mg/dL (0.0-0.4); BILIRUBIN,TOTAL 0.5 mg/dL (0.2-1.3); BLOOD UREA NITROGEN 16 mg/dL (7-20); CARBON DIOXIDE 30 mmol/L (22-30); CHLORIDE 97 mmol/L (98-107); GLUCOSE 188 mg/dL (75-110); POTASSIUM 4.4 mmol/L (3.6-5.0); TOTAL PROTEIN 6.1 g/dL (6.3-8.2)
[2020-04-27] MEDS: IPRATROPIUM/ALBUTEROL 0.5-2.5 MG/3 ML AMPUL NEB SCH ×3 (08:35→19:59)
[2020-04-27] MEDS: FAMOTIDINE 20 MG TABLET PO SCH ×2 (09:11→21:57)
[2020-04-27] MEDS: BENZTROPINE MESYLATE 1 MG TABLET PO SCH ×2 (09:11→17:48)
[2020-04-27] MEDS: CHOLECALCIFEROL (D3) 1,000 UNIT (25 MCG) TABLET PO SCH (09:11)
[2020-04-27] MEDS: INSULIN LISPRO 100 UNIT/ML 3 ML VIAL SUBCUT SCH ×4 (09:11→21:56)
[2020-04-27] MEDS: ZINC SULFATE 220 MG CAPSULE PO SCH (09:11)
[2020-04-27] MEDS: ENOXAPARIN SODIUM INJ 40 MG/0.4 ML DISP.SYRIN SUBCUT SCH (09:11)
[2020-04-27] MEDS: ASCORBIC ACID 500 MG TABLET PO SCH ×2 (09:11→17:48)
[2020-04-27] MEDS: LEVOFLOXACIN 750 MG/D5W RTU 750 MG/150 ML RTUPB IV SCH (09:12)
[2020-04-27] MEDS: DIVALPROEX SODIUM 500 MG TAB.SR.24H PO SCH (10:40)
[2020-04-27] MEDS: FLUTICASONE/VILANTEROL 100-25 MCG/DOSE IH SCH (10:41)
[2020-04-27] MEDS: REMDESIVIR 100 MG in NORMAL SALINE 250 ML IV SCH (10:41)
--- NOTE | 2020-04-27 16:57 | PDOC PROGRESS REPORT ---
Subjective Date:: 04/27/20 Subjective:: YAHAIRA SAUER is a 69 year old male with a history of Alzheimer's dementia, s chizophrenia, COPD and hyperlipidemia who is brought in from [facility] after he was noted to have fever and change in his mental status from baseline. Patient is unable to give any meaningful answer and history was from ER signout and chart review. During transfer he had a temperature of 103.1 and he was given Tylenol by EMS which brought down his temperature. On arrival to the ED patient was saturating 87% on room air and was tachycardic. Further work-up indicates: Positive for COVID-19 with imaging findings consistent with Covid infection and currently being admitted to acute medicine floor for management of hypoxic respiratory failure. D1 Hospital stay 04/19/20 patient was seen and examined at bedside. He was on 2L of nasal cannula appears comfortable. He denies chest pain, palpitations or cough. Dementia seems at baseline. D2 Hospital stay 04/20/20 Patient was seen and examined at bedside. Per night nurse he became agitated and needed restraints. Today he was more calm and we were able to take the restraints off of him. He denies any SOB, O2 sat 99% on 3L of NC, so far has shown no increase in O2 needs. D3 hospital stay 04/21/20 Patient was seen and examined at bedside. He was again put back on restraints last night due to sundowning despite frequent re orientation. Otherwise, O2 sat is stable at 2L NC. He has completed Ivermectin doses.We will try to wean him off O2 tomorrow. D4 Hospital stay 04/22/20 Patient was seen and examined at bedside. On restraints again but he's very calm so I removed his restraints, otherwise he is not complaining of any SOB. I have told the nurse to wean him off O2. Otherwise he is doing well in terms of his COVID infection. D5 hospital stay 04/23/20 Patient was seen and examined at bedside. He was noted to be desaturating last night and had to be put back on bipap. He is currently on bipap 50% saturating 94%. He is otherwise stable. He usually starts to get agitated and sundown at around 6 pm requiring geodon. He was diagnosed with C OVID Apr 18 so he is 1 week into his diagnosis and this is the time that patients usually take a turn for the worse. D6 hospital stay 04/24/20 Patient was seen and examined at bedside. He is still on bipap 70% FIO2 to maintain sats above 91%. Repeat CXR showed worsening patchy bilateral interstitial and alveolar opacities. He has previously received Ivermectin and has been on steroids since admission. He was started on remdesivir today for worsening pneumonia, also on levaquin for possible HAP pending Procalcitonin and repeat blood cultures. Also received convalescent plasma. I was able to speak to his sister Ritchie and her and after discussion they stated that they want him DNR but they are OK for Intubation if its for respiratory failure. Please refer to ACP note. D7 Hospital stay 04/25/20 Patient was seen and examined at bedside. He is more agitated today compared to yesterday, would intermittently take his bipap off. Currently at 65% FIO2 saturating 95%. D8 hospital stay 04/26/20 Patient seen and examined at bedside. He's calm this morning, not taking off his bipap mask. Currently at 60% FIO2 on BIPAP. D9 hospital stay 04/27/20 Patient was seen and examined at bedside. No new symptoms. Oxygen needs are decreasing, he is on oxymizer. he is on D3 of 4 of remdesivir. Once done with remdesivir and o2 needs has decreased just a regular nasal cannula patient may go back to [facility]. I was able to update his brother in law today. Reason For Visit: ACUTE HYPOXIC RESPIRATORY FAILURE PNUEMONIA DUE TO Physical Exam Vital Signs: Temp Pulse Resp BP Pulse Ox 98.2 F 86 24 H 139/78 H 98 04/27/20 11:36 04/27/20 14:46 04/27/20 14:46 04/27/20 11:36 04/27/20 14:46 Intake & Output 04/26/20 04/27/20 04/28/20 06:59 06:59 06:59 Intake Total 1820 1790 400 Output Total 995 480 Balance 825 1310 400 Weight 81.6 kg 81.4 kg General appearance: PRESENT: cooperative, mild distress Head exam: PRESENT: atraumatic, normocephalic Eye exam: PRESENT: EOMI, PERRLA Mouth exam: PRESENT: moist Neck exam: PRESENT: full ROM Respiratory exam: PRESENT: rales, symmetrical, unlabored Cardiovascular exam: PRESENT: RRR, +S1, +S2 Pulses: PRESENT: +2 pedal pulses bilateral GI/Abdominal exam: PRESENT: normal bowel sounds, soft. ABSENT: rebound, tenderness Extremities exam: PRESENT: full ROM Musculoskeletal exam: PRESENT: full ROM Neurological exam: PRESENT: alert, awake. ABSENT: oriented to person, oriented to place, oriented to time, oriented to situation Psychiatric exam: PRESENT: normal mood Skin exam: PRESENT: normal color Results Laboratory Results: 04/27/20 05:24 04/27/20 05:24 04/27/20 04/27/20 05:24 05:24 WBC 9.5 RBC 3.92 L Hgb 12.0 L Hct 34.7 L MCV 89 MCH 30.6 MCHC 34.6 RDW 16.7 H Plt Count 219 Seg Neutrophils % 88.8 H Sodium 135.0 L Potassium 4.4 Chloride 97 L Carbon Dioxide 30 Anion Gap 8 BUN 16 Creatinine 0.68 Est GFR ( Amer) > 60 Glucose 188 H Calcium 9.0 Total Bilirubin 0.5 AST 44 Alkaline Phosphatase 61 Total Protein 6.1 L Albumin 3.0 L 04/18/20 04/18/20 04/24/20 17:14 21:15 06:41 Creatine Kinase 6115 H Troponin I 0.024 NT-Pro-B Natriuret Pep 535 H Impressions: Chest X-Ray 04/23/20 00:00 IMPRESSION: Worsening patchy bilateral interstitial and alveolar opacities, likely multifocal pneumonia. Edema is another consideration. No significant effusion. Assessment and Plan - Diagnosis (1) Acute respiratory failure with hypoxia Is this a current diagnosis for this admission?: Yes Plan: Patient was brought in after he developed fever and confusion transitioned to oxymizer Tested positive for COVID-19 Chest x-ray showed worsening multifocal pneumonia on dexa 6 Iv daily completed ivermectin remdesivir day 3 of 4 Continue zinc, vitamin C, vitamin D, on intranasal oxygen blood culture negative x 48 hrs (2) Pneumonia due to COVID-19 virus Is this a current diagnosis for this admission?: Yes Plan: Patient currently admitted for hypoxic respiratory failure due to COVID-19 pneumonia CRP increased from 82.9>239 repeat CXR showed worsening multifocal pneumonia on remdesivir continue steroids, 2nd dose of ivermectin given, continue O2 support currently on bipap continue vitamin C, vitamin D, zinc Continue management as stated above (3) History of COPD Is this a current diagnosis for this admission?: Yes Plan: Continue breathing treatments with DuoNeb as needed started on breo (4) Alzheimer's dementia Qualifiers: Alzheimer's disease onset: unspecified onset Is this a current diagnosis for this admission?: Yes Plan: Patient has an advanced dementia Was able to reach sister Ritchie RUBIO and she wants him DNR however she is OK for intubation in case of respiratory failure due to COVID pneumonia has frequent sundowning at around 6 pm. PRN jnendon ordered. (5) Hypertension Qualifiers: Hypertension type: essential hypertension Qualified Code(s): I10 - Essential (primary) hypertension Is this a current diagnosis for this admission?: Yes Plan: Currently blood pressure is within acceptable limits, will hold antihypertensive medications for now due to volume depletion (6) Hypokalemia Is this a current diagnosis for this admission?: Yes Plan: Serum potassium level was 2.9>3.4>3.7 replace as needed Placed him on telemetry for monitoring Continue monitoring electrolytes and replete as necessary (7) Hyponatremia Is this a current diagnosis for this admission?: Yes Plan: RESOLVED Likely hypovolemic hyponatremia due to volume depletion Continue monitoring BMP and correct electrolytes as necessary (8) Metabolic alkalosis Is this a current diagnosis for this admission?: Yes Plan: Likely from alkalosis from volume depletion encourage PO intake (9) Schizophrenia Is this a current diagnosis for this admission?: Yes Plan: receives Maddie for acute agitation monitor QTc (10) Transaminitis Is this a current diagnosis for this admission?: Yes Plan: - AST 366>225, ALT 54>63 - Hepatitis panel negative - statin stopped - Time Time Spent with patient: 25-34 minutes Medications reviewed and adjusted accordingly: Yes Anticipated Discharge Disposition: [facility] Anticipated Discharge Timeframe: TBD
[2020-04-27] MEDS: TRAZODONE HCL 50 MG TABLET PO SCH (21:57)
[2020-04-27] MEDS: DEXAMETHASONE SOD PHOS INJ 10 MG/1 ML VIAL IV SCH (21:57)
[2020-04-28] MEDS: ZIPRASIDONE MESYLATE INJ/PF 20 MG SDV IM PRN (04:37)
[2020-04-28] MEDS: INSULIN LISPRO 100 UNIT/ML 3 ML VIAL SUBCUT SCH ×4 (08:22→21:47)
[2020-04-28] MEDS: FUROSEMIDE 40 MG TABLET PO SCH (08:23)
[2020-04-28] MEDS: IPRATROPIUM/ALBUTEROL 0.5-2.5 MG/3 ML AMPUL NEB SCH ×3 (08:45→20:43)
[2020-04-28] MEDS ORDERED: (PENDING PHARMACY ID) (Hydrochlorothiazide [Hydrochlorothiazide] 12.5 MG Capsule) PO SCH (10:00)
[2020-04-28] MEDS: ASCORBIC ACID 500 MG TABLET PO SCH ×2 (10:01→17:11)
[2020-04-28] MEDS: ZINC SULFATE 220 MG CAPSULE PO SCH (10:01)
[2020-04-28] MEDS: CHOLECALCIFEROL (D3) 1,000 UNIT (25 MCG) TABLET PO SCH (10:01)
[2020-04-28] MEDS: BENZTROPINE MESYLATE 1 MG TABLET PO SCH ×2 (10:02→17:12)
[2020-04-28] MEDS: ENOXAPARIN SODIUM INJ 40 MG/0.4 ML DISP.SYRIN SUBCUT SCH (10:02)
[2020-04-28] MEDS: REMDESIVIR 100 MG in NORMAL SALINE 250 ML IV SCH (10:02)
[2020-04-28] MEDS: FAMOTIDINE 20 MG TABLET PO SCH ×2 (10:02→21:47)
[2020-04-28] MEDS: HYDROCHLOROTHIAZIDE 12.5 MG TABLET PO SCH (10:02)
[2020-04-28] MEDS: LEVOFLOXACIN 750 MG/D5W RTU 750 MG/150 ML RTUPB IV SCH (10:03)
[2020-04-28] MEDS: FLUTICASONE/VILANTEROL 100-25 MCG/DOSE IH SCH (10:03)
[2020-04-28] MEDS: DIVALPROEX SODIUM 500 MG TAB.SR.24H PO SCH (10:04)
[2020-04-28] MEDS ORDERED: RISPERIDONE MICROSPHERES INJ 50 MG/2 ML KIT IM SCH (16:30)
--- NOTE | 2020-04-28 17:35 | PDOC PROGRESS REPORT ---
Subjective Date:: 04/28/20 Subjective:: Patient is sitting in bed. The nurses at the bedside. He has no acute complain ts. He is very vigorous in our discussion and wants to know when he can take the oxygen off and go home. Reason For Visit: ACUTE HYPOXIC RESPIRATORY FAILURE PNUEMONIA DUE TO Physical Exam Vital Signs: Temp Pulse Resp BP Pulse Ox 98.3 F 81 18 132/74 H 94 04/28/20 15:54 04/28/20 15:54 04/28/20 15:54 04/28/20 15:54 04/28/20 16:42 Intake & Output 04/27/20 04/28/20 04/29/20 06:59 06:59 06:59 Intake Total 1790 1224 882 Output Total 480 925 200 Balance 1310 299 682 Weight 81.4 kg 82.1 kg General appearance: PRESENT: cooperative, well-developed, well-nourished Ear exam: PRESENT: normal external ear exam. ABSENT: bleeding, drainage Mouth exam: PRESENT: moist, tongue midline Respiratory exam: PRESENT: rales - left Cardiovascular exam: PRESENT: RRR, +S1, +S2. ABSENT: bradycardia, diastolic murmur, irregular rhythm, systolic murmur, tachycardia GI/Abdominal exam: PRESENT: distended, normal bowel sounds, soft. ABSENT: guarding, tenderness Rectal exam: PRESENT: deferred Extremities exam: ABSENT: pedal edema Musculoskeletal exam: PRESENT: normal inspection. ABSENT: deformity, dislocation Neurological exam: PRESENT: alert, awake, oriented to person Psychiatric exam: PRESENT: appropriate affect. ABSENT: agitated, anxious Results Laboratory Results: 04/27/20 05:24 04/27/20 05:24 04/18/20 04/18/20 04/24/20 17:14 21:15 06:41 Creatine Kinase 6115 H Troponin I 0.024 NT-Pro-B Natriuret Pep 535 H Impressions: Chest X-Ray 04/23/20 00:00 IMPRESSION: Worsening patchy bilateral interstitial and alveolar opacities, likely multifocal pneumonia. Edema is another consideration. No significant effusion. Assessment and Plan - Plan Summary Summary: (1) Acute respiratory failure with hypoxia Is this a current diagnosis for this admission?: Yes Plan: Patient was brought in after he developed fever and confusion transitioned to oxymizer Tested positive for COVID-19 Chest x-ray showed worsening multifocal pneumonia on dexa 6 Iv daily completed ivermectin remdesivir day 3 of 4 Continue zinc, vitamin C, vitamin D, on intranasal oxygen blood culture negative x 48 hrs -Now on Oxymizer oxygen. Taper as tolerated. (2) Pneumonia due to COVID-19 virus Is this a current diagnosis for this admission?: Yes Plan: Patient currently admitted for hypoxic respiratory failure due to COVID-19 pneumonia CRP increased from 82.9>239 repeat CXR showed worsening multifocal pneumonia on remdesivir continue steroids, 2nd dose of ivermectin given, continue O2 support currently on bipap continue vitamin C, vitamin D, zinc Continue management as stated above -Continue supplements. Patient completed remdesivir therapy. (3) History of COPD Is this a current diagnosis for this admission?: Yes Plan: Continue breathing treatments with DuoNeb as needed started on breo -Continue inhaler therapy, steroids and slowly taper oxygen (4) Alzheimer's dementia Qualifiers: Alzheimer's disease onset: unspecified onset Is this a current diagnosis for this admission?: Yes Plan: Patient has an advanced dementia Was able to reach sister Ritchie RUBIO and she wants him DNR however she is OK for intubation in case of respiratory failure due to COVID pneumonia has frequent sundowning at around 6 pm. PRN abram ordered. Seems to be in good spirits today. Geodon as needed. (5) Hypertension Qualifiers: Hypertension type: essential hypertension Qualified Code(s): I10 - Essential (primary) hypertension Is this a current diagnosis for this admission?: Yes Plan: Currently blood pressure is within acceptable limits, will hold antihypertensive medications for now due to volume depletion -Good blood pressures. Add antihypertensives back judiciously according to blood pressure (6) Hypokalemia Is this a current diagnosis for this admission?: Yes Plan: Serum potassium level was 2.9>3.4>3.7 replace as needed Placed him on telemetry for monitoring Continue monitoring electrolytes and replete as necessary Recheck electrolytes tomorrow (7) Hyponatremia Is this a current diagnosis for this admission?: Yes Plan: RESOLVED Likely hypovolemic hyponatremia due to volume depletion Continue monitoring BMP and correct electrolytes as necessary Recheck electrolytes tomorrow (8) Metabolic alkalosis Is this a current diagnosis for this admission?: Yes Plan: Likely from alkalosis from volume depletion encourage PO intake (9) Schizophrenia Is this a current diagnosis for this admission?: Yes Plan: receives Geodon for acute agitation monitor QTc (10) Transaminitis Is this a current diagnosis for this admission?: Yes Plan: - AST 366>225, ALT 54>63 - Hepatitis panel negative - statin stopped - Time Time Spent with patient: 25-34 minutes Medications reviewed and adjusted accordingly: Yes Anticipated Discharge Disposition: Unknown Anticipated Discharge Timeframe: Unknown
[2020-04-28] MEDS: DEXAMETHASONE SOD PHOS INJ 10 MG/1 ML VIAL IV SCH (21:46)
[2020-04-28] MEDS: TRAZODONE HCL 50 MG TABLET PO SCH (21:47)
[2020-04-29 05:15] LABS: HEMATOCRIT 35.1 % (37.9-51.0); MEAN CORPUSCULAR HEMOGLOBIN 30.1 pg (27.0-33.4); MEAN CORPUSCULAR HGB CONC 34.3 g/dL (32.0-36.0); MEAN CORPUSCULAR VOLUME 88 fl (80-97); PLATELET COUNT 185 10^3/uL (150-450); RED CELL DISTRIBUTION WIDTH 16.8 % (11.5-14.0); WHITE BLOOD COUNT 10.5 10^3/uL (4.0-10.5)
[2020-04-29 05:27] LABS: ALBUMIN 2.9 g/dL (3.5-5.0); ALKALINE PHOSPHATASE 65 U/L (38-126); ANION GAP 6 (5-19); ASPARTATE AMINO TRANSFERASE 33 U/L (17-59); BILIRUBIN,DIRECT 0.3 mg/dL (0.0-0.4); BILIRUBIN,TOTAL 0.6 mg/dL (0.2-1.3); BLOOD UREA NITROGEN 19 mg/dL (7-20); CALCIUM 8.8 mg/dL (8.4-10.2); CARBON DIOXIDE 32 mmol/L (22-30); CHLORIDE 96 mmol/L (98-107); GLUCOSE 210 mg/dL (75-110); POTASSIUM 4.2 mmol/L (3.6-5.0); TOTAL PROTEIN 6.2 g/dL (6.3-8.2)
[2020-04-29 06:17] LABS: ABSOLUTE LYMPHOCYTES# (MANUAL) 0.2 10^3/uL (0.5-4.7); ABSOLUTE MONOCYTES # (MANUAL) 0.3 10^3/uL (0.1-1.4); BAND NEUTROPHILS % (MANUAL) 1 % (3-5); BASOPHILS % (MANUAL) 0 % (0-2); EOSINOPHILS % (MANUAL) 0 % (0-6); LYMPHOCYTES % (MANUAL) 2 % (13-45); MONOCYTES % (MANUAL) 3 % (3-13); SEGMENTED NEUTROPHILS % (MAN) 94 % (42-78); TOTAL CELLS COUNTED 100
[2020-04-29 06:20] LABS: ANISOCYTOSIS 2+; PLATELET CLUMPS PRESENT; PLATELET COMMENT ADEQUATE; POIKILOCYTOSIS SLIGHT
[2020-04-29] MEDS: IPRATROPIUM/ALBUTEROL 0.5-2.5 MG/3 ML AMPUL NEB SCH ×3 (08:46→20:28)
[2020-04-29] MEDS: INSULIN LISPRO 100 UNIT/ML 3 ML VIAL SUBCUT SCH ×4 (09:08→21:39)
[2020-04-29] MEDS: ENOXAPARIN SODIUM INJ 40 MG/0.4 ML DISP.SYRIN SUBCUT SCH (09:09)
[2020-04-29] MEDS: FUROSEMIDE 40 MG TABLET PO SCH (09:09)
[2020-04-29] MEDS: BENZTROPINE MESYLATE 1 MG TABLET PO SCH ×2 (09:10→17:38)
[2020-04-29] MEDS: LEVOFLOXACIN 750 MG/D5W RTU 750 MG/150 ML RTUPB IV SCH (09:10)
[2020-04-29] MEDS: CHOLECALCIFEROL (D3) 1,000 UNIT (25 MCG) TABLET PO SCH (09:10)
[2020-04-29] MEDS: ZINC SULFATE 220 MG CAPSULE PO SCH (09:10)
[2020-04-29] MEDS: FAMOTIDINE 20 MG TABLET PO SCH ×2 (09:10→21:39)
[2020-04-29] MEDS: HYDROCHLOROTHIAZIDE 12.5 MG TABLET PO SCH (09:10)
[2020-04-29] MEDS: ASCORBIC ACID 500 MG TABLET PO SCH ×2 (09:10→17:38)
[2020-04-29] MEDS: FLUTICASONE/VILANTEROL 100-25 MCG/DOSE IH SCH (09:23)
--- NOTE | 2020-04-29 12:22 | PDOC PROGRESS REPORT ---
Subjective Date:: 04/29/20 Subjective:: YAHAIRA SAUER is a 69 year old male with a history of Alzheimer's dementia, s chizophrenia, COPD and hyperlipidemia who is brought in from [facility] after he was noted to have fever and change in his mental status from baseline. Patient is unable to give any meaningful answer and history was from ER signout and chart review. During transfer he had a temperature of 103.1 and he was given Tylenol by EMS which brought down his temperature. On arrival to the ED patient was saturating 87% on room air and was tachycardic. Further work-up indicates: Positive for COVID-19 with imaging findings consistent with Covid infection and currently being admitted to acute medicine floor for management of hypoxic respiratory failure. D1 Hospital stay 04/19/20 patient was seen and examined at bedside. He was on 2L of nasal cannula appears comfortable. He denies chest pain, palpitations or cough. Dementia seems at baseline. D2 Hospital stay 04/20/20 Patient was seen and examined at bedside. Per night nurse he became agitated and needed restraints. Today he was more calm and we were able to take the restraints off of him. He denies any SOB, O2 sat 99% on 3L of NC, so far has shown no increase in O2 needs. D3 hospital stay 04/21/20 Patient was seen and examined at bedside. He was again put back on restraints last night due to sundowning despite frequent re orientation. Otherwise, O2 sat is stable at 2L NC. He has completed Ivermectin doses.We will try to wean him off O2 tomorrow. D4 Hospital stay 04/22/20 Patient was seen and examined at bedside. On restraints again but he's very calm so I removed his restraints, otherwise he is not complaining of any SOB. I have told the nurse to wean him off O2. Otherwise he is doing well in terms of his COVID infection. D5 hospital stay 04/23/20 Patient was seen and examined at bedside. He was noted to be desaturating last night and had to be put back on bipap. He is currently on bipap 50% saturating 94%. He is otherwise stable. He usually starts to get agitated and sundown at around 6 pm requiring geodon. He was diagnosed with C OVID Apr 18 so he is 1 week into his diagnosis and this is the time that patients usually take a turn for the worse. D6 hospital stay 04/24/20 Patient was seen and examined at bedside. He is still on bipap 70% FIO2 to maintain sats above 91%. Repeat CXR showed worsening patchy bilateral interstitial and alveolar opacities. He has previously received Ivermectin and has been on steroids since admission. He was started on remdesivir today for worsening pneumonia, also on levaquin for possible HAP pending Procalcitonin and repeat blood cultures. Also received convalescent plasma. I was able to speak to his sister Ritchie and her and after discussion they stated that they want him DNR but they are OK for Intubation if its for respiratory failure. Please refer to ACP note. D7 Hospital stay 04/25/20 Patient was seen and examined at bedside. He is more agitated today compared to yesterday, would intermittently take his bipap off. Currently at 65% FIO2 saturating 95%. D8 hospital stay 04/26/20 Patient seen and examined at bedside. He's calm this morning, not taking off his bipap mask. Currently at 60% FIO2 on BIPAP. D9 hospital stay 04/27/20 Patient was seen and examined at bedside. No new symptoms. Oxygen needs are decreasing, he is on oxymizer. he is on D3 of 4 of remdesivir. Once done with remdesivir and o2 needs has decreased just a regular nasal cannula patient may go back to [facility]. I was able to update his brother in law today. D11 hospital stay 02/27/21 Patient was seen and examined at bedside. HE is on Oxymixer saturating 93%. Calm today, denies SOB. Afebrile with good appetite. Reason For Visit: ACUTE HYPOXIC RESPIRATORY FAILURE PNUEMONIA DUE TO Physical Exam Vital Signs: Temp Pulse Resp BP Pulse Ox 97.9 F 87 18 128/82 H 95 04/29/20 07:41 04/29/20 08:00 04/29/20 08:00 04/29/20 07:41 04/29/20 08:00 Intake & Output 04/28/20 04/29/20 04/30/20 06:59 06:59 06:59 Intake Total 1224 1002 150 Output Total 925 600 Balance 299 402 150 Weight 82.1 kg 80.9 kg General appearance: PRESENT: cooperative, mild distress Head exam: PRESENT: atraumatic, normocephalic Eye exam: PRESENT: EOMI, PERRLA Mouth exam: PRESENT: moist Neck exam: PRESENT: full ROM Respiratory exam: PRESENT: rales, symmetrical, unlabored Cardiovascular exam: PRESENT: RRR, +S1, +S2 Pulses: PRESENT: +2 pedal pulses bilateral GI/Abdominal exam: PRESENT: normal bowel sounds, soft. ABSENT: rebound, tenderness Extremities exam: PRESENT: full ROM Musculoskeletal exam: PRESENT: full ROM Neurological exam: PRESENT: alert, awake. ABSENT: oriented to person, oriented to place, oriented to time, oriented to situation Psychiatric exam: PRESENT: unusual affect Focused psych exam: PRESENT: flight of ideas Skin exam: PRESENT: normal color Results Laboratory Results: 04/29/20 04:55 04/29/20 04:55 04/29/20 04/29/20 04:55 04:55 WBC 10.5 RBC 4.00 L Hgb 12.0 L Hct 35.1 L MCV 88 MCH 30.1 MCHC 34.3 RDW 16.8 H Plt Count 185 Seg Neutrophils % Not Reportable Sodium 134.1 L Potassium 4.2 Chloride 96 L Carbon Dioxide 32 H Anion Gap 6 BUN 19 Creatinine 0.63 Est GFR ( Amer) > 60 Glucose 210 H Calcium 8.8 Total Bilirubin 0.6 AST 33 Alkaline Phosphatase 65 Total Protein 6.2 L Albumin 2.9 L 04/18/20 04/18/20 04/24/20 17:14 21:15 06:41 Creatine Kinase 6115 H Troponin I 0.024 NT-Pro-B Natriuret Pep 535 H Impressions: Chest X-Ray 04/23/20 00:00 IMPRESSION: Worsening patchy bilateral interstitial and alveolar opacities, likely multifocal pneumonia. Edema is another consideration. No significant effusion. Assessment and Plan - Diagnosis (1) Acute respiratory failure with hypoxia Is this a current diagnosis for this admission?: Yes (2) Pneumonia due to COVID-19 virus Is this a current diagnosis for this admission?: Yes (3) History of COPD Is this a current diagnosis for this admission?: Yes (4) Alzheimer's dementia Qualifiers: Alzheimer's disease onset: unspecified onset Is this a current diagnosis for this admission?: Yes (5) Hypertension Qualifiers: Hypertension type: essential hypertension Qualified Code(s): I10 - Essential (primary) hypertension Is this a current diagnosis for this admission?: Yes (6) Hypokalemia Is this a current diagnosis for this admission?: Yes (7) Hyponatremia Is this a current diagnosis for this admission?: Yes (8) Metabolic alkalosis Is this a current diagnosis for this admission?: Yes (9) Schizophrenia Is this a current diagnosis for this admission?: Yes (10) Transaminitis Is this a current diagnosis for this admission?: Yes - Plan Summary Summary: (1) Acute respiratory failure with hypoxia Is this a current diagnosis for this admission?: Yes Plan: Tested positive for COVID-19 Chest x-ray showed worsening multifocal pneumonia on dexa 6 Iv daily completed ivermectin Completed Remdesivir Continue zinc, vitamin C, vitamin D, on intranasal oxygen blood culture negative x 48 hrs Now on Oxymizer oxygen. Taper as tolerated. (2) Pneumonia due to COVID-19 virus Is this a current diagnosis for this admission?: Yes Plan: Patient currently admitted for hypoxic respiratory failure due to COVID-19 pneumonia CRP increased from 82.9>239 repeat CXR showed worsening multifocal pneumonia on remdesivir continue steroids, 2nd dose of ivermectin given, continue O2 support currently on bipap continue vitamin C, vitamin D, zinc Continue management as stated above (3) History of COPD Is this a current diagnosis for this admission?: Yes Plan: -Continue breathing treatments with DuoNeb as needed started on breo -Continue inhaler therapy, steroids and slowly taper oxygen (4) Alzheimer's dementia Qualifiers: Alzheimer's disease onset: unspecified onset Is this a current diagnosis for this admission?: Yes Plan: Patient has an advanced dementia Was able to reach sister Ritchie RUBIO and she wants him DNR however she is OK for intubation in case of respiratory failure due to COVID pneumonia has frequent sundowning at around 6 pm. PRN abram ordered. Seems to be in good spirits today. Geodon as needed. (5) Hypertension Qualifiers: Hypertension type: essential hypertension Qualified Code(s): I10 - Essential (primary) hypertension Is this a current diagnosis for this admission?: Yes Plan: Currently blood pressure is within acceptable limits, will hold antihypertensive medications for now due to volume depletion -Good blood pressures. Add antihypertensives back judiciously according to blood pressure (6) Hypokalemia Is this a current diagnosis for this admission?: Yes Plan: Serum potassium level was 2.9>3.4>3.7 replace as needed Placed him on telemetry for monitoring Continue monitoring electrolytes and replete as necessary Recheck electrolytes tomorrow (7) Hyponatremia Is this a current diagnosis for this admission?: Yes Plan: RESOLVED Likely hypovolemic hyponatremia due to volume depletion Continue monitoring BMP and correct electrolytes as necessary Recheck electrolytes tomorrow (8) Metabolic alkalosis Is this a current diagnosis for this admission?: Yes Plan: Likely from alkalosis from volume depletion encourage PO intake (9) Schizophrenia Is this a current diagnosis for this admission?: Yes Plan: receives [facility] for acute agitation monitor QTc (10) Transaminitis Is this a current diagnosis for this admission?: Yes Plan: - AST 366>225, ALT 54>63 - Hepatitis panel negative - statin stopped - Time Time Spent with patient: 15-24 minutes Medications reviewed and adjusted accordingly: Yes Anticipated Discharge Disposition: [facility] Anticipated Discharge Timeframe: tbd
[2020-04-29] MEDS: DIVALPROEX SODIUM 500 MG TAB.SR.24H PO SCH (12:36)
[2020-04-29] MEDS: ZIPRASIDONE MESYLATE INJ/PF 20 MG SDV IM PRN (17:46)
[2020-04-29] MEDS: DEXAMETHASONE SOD PHOS INJ 10 MG/1 ML VIAL IV SCH (21:38)
[2020-04-29] MEDS: TRAZODONE HCL 50 MG TABLET PO SCH (21:39)
[2020-04-30] MEDS: IPRATROPIUM/ALBUTEROL 0.5-2.5 MG/3 ML AMPUL NEB SCH ×3 (08:36→20:15)
[2020-04-30] MEDS: INSULIN LISPRO 100 UNIT/ML 3 ML VIAL SUBCUT SCH ×4 (09:00→21:15)
[2020-04-30] MEDS: HYDROCHLOROTHIAZIDE 12.5 MG TABLET PO SCH (09:06)
[2020-04-30] MEDS: ZINC SULFATE 220 MG CAPSULE PO SCH (09:06)
[2020-04-30] MEDS: ENOXAPARIN SODIUM INJ 40 MG/0.4 ML DISP.SYRIN SUBCUT SCH (09:07)
[2020-04-30] MEDS: ASCORBIC ACID 500 MG TABLET PO SCH ×2 (09:07→17:16)
[2020-04-30] MEDS: CHOLECALCIFEROL (D3) 1,000 UNIT (25 MCG) TABLET PO SCH (09:07)
[2020-04-30] MEDS: FAMOTIDINE 20 MG TABLET PO SCH ×2 (09:07→21:14)
[2020-04-30] MEDS: FUROSEMIDE 40 MG TABLET PO SCH (09:07)
[2020-04-30] MEDS: BENZTROPINE MESYLATE 1 MG TABLET PO SCH ×2 (09:07→17:16)
[2020-04-30] MEDS: LEVOFLOXACIN 750 MG/D5W RTU 750 MG/150 ML RTUPB IV SCH (09:08)
[2020-04-30] MEDS: FLUTICASONE/VILANTEROL 100-25 MCG/DOSE IH SCH (09:09)
[2020-04-30] MEDS: DIVALPROEX SODIUM 500 MG TAB.SR.24H PO SCH (10:09)
[2020-04-30] MEDS: ZIPRASIDONE MESYLATE INJ/PF 20 MG SDV IM PRN (13:00)
--- NOTE | 2020-04-30 13:01 | PDOC PROGRESS REPORT ---
Subjective Date:: 04/30/20 Subjective:: The patient is back on CPAP. He was on nasal cannula Oxymizer but his saturations dropped. He in fact is improving responding to the treatment with BiPAP quite quickly and is FiO2 needs are going down. It is likely we will need to do short windows of off the BiPAP and transition slowly to nasal oxygen. Reason For Visit: ACUTE HYPOXIC RESPIRATORY FAILURE Pneumonia due to Covid virus Physical Exam Vital Signs: Temp Pulse Resp BP Pulse Ox 98.0 F 77 25 H 117/76 92 04/30/20 11:34 04/30/20 11:34 04/30/20 11:34 04/30/20 11:34 04/30/20 11:34 Intake & Output 04/29/20 04/30/20 05/01/20 06:59 06:59 06:59 Intake Total 1002 1380 615 Output Total 600 825 375 Balance 402 555 240 Weight 80.9 kg 80.1 kg General appearance: PRESENT: cooperative, mild distress, well-developed, other - BiPAP mask in place Head exam: PRESENT: atraumatic, normocephalic Ear exam: PRESENT: normal external ear exam. ABSENT: bleeding, drainage Mouth exam: PRESENT: other - BiPAP mask in place Respiratory exam: PRESENT: clear to auscultation rea, prolonged expiratory phas, symmetrical, tachypnea. ABSENT: rales, rhonchi, wheezes Cardiovascular exam: PRESENT: RRR, +S1, +S2. ABSENT: bradycardia, diastolic murmur, irregular rhythm, systolic murmur, tachycardia GI/Abdominal exam: PRESENT: normal bowel sounds, soft. ABSENT: distended, guarding, tenderness Rectal exam: PRESENT: deferred Extremities exam: ABSENT: pedal edema Neurological exam: PRESENT: alert, awake, oriented to person, oriented to place, oriented to time, oriented to situation, CN II-XII grossly intact. ABSENT: altered Psychiatric exam: PRESENT: flat affect. ABSENT: agitated, anxious Focused psych exam: ABSENT: delusional, paranoid, restlessness Results Laboratory Results: 04/29/20 04:55 04/29/20 04:55 04/18/20 04/18/20 04/24/20 17:14 21:15 06:41 Creatine Kinase 6115 H Troponin I 0.024 NT-Pro-B Natriuret Pep 535 H Impressions: Chest X-Ray 04/23/20 00:00 IMPRESSION: Worsening patchy bilateral interstitial and alveolar opacities, likely multifocal pneumonia. Edema is another consideration. No significant effusion. Assessment and Plan - Diagnosis (1) Acute respiratory failure with hypoxia Is this a current diagnosis for this admission?: Yes (2) Pneumonia due to COVID-19 virus Is this a current diagnosis for this admission?: Yes (3) History of COPD Is this a current diagnosis for this admission?: Yes (4) Hypertension Qualifiers: Hypertension type: essential hypertension Qualified Code(s): I10 - Essential (primary) hypertension Is this a current diagnosis for this admission?: Yes (5) Hypokalemia Is this a current diagnosis for this admission?: Yes (6) Hyponatremia Is this a current diagnosis for this admission?: Yes (7) Metabolic alkalosis Is this a current diagnosis for this admission?: Yes (8) Transaminitis Is this a current diagnosis for this admission?: Yes (9) Alzheimer's dementia Qualifiers: Alzheimer's disease onset: unspecified onset Is this a current diagnosis for this admission?: Yes (10) Schizophrenia Is this a current diagnosis for this admission?: Yes - Plan Summary Summary: (1) Acute respiratory failure with hypoxia Is this a current diagnosis for this admission?: Yes Plan: Tested positive for COVID-19 Chest x-ray showed worsening multifocal pneumonia on dexa 6 Iv daily completed ivermectin Completed Remdesivir Continue zinc, vitamin C, vitamin D, on intranasal oxygen blood culture negative x 48 hrs Now on Oxymizer oxygen. Taper as tolerated. Cannot tolerate Oxymizer for extended periods. Will likely need to use Oxymizer during meals and still use BiPAP for several hours at a time during the day. Continue to wean towards nasal cannula only. (2) Pneumonia due to COVID-19 virus Is this a current diagnosis for this admission?: Yes Plan: Patient currently admitted for hypoxic respiratory failure due to COVID-19 pneumonia CRP increased from 82.9>239 repeat CXR showed worsening multifocal pneumonia on remdesivir continue steroids, 2nd dose of ivermectin given, continue O2 support currently on bipap continue vitamin C, vitamin D, zinc Continue management as stated above No changes at this time. (3) History of COPD Is this a current diagnosis for this admission?: Yes Plan: -Continue breathing treatments with DuoNeb as needed started on breo -Continue inhaler therapy, steroids and slowly taper oxygen No change in treatment plan (4) Alzheimer's dementia Qualifiers: Alzheimer's disease onset: unspecified onset Is this a current diagnosis for this admission?: Yes Plan: Patient has an advanced dementia Was able to reach sister Ritchie RUBIO and she wants him DNR however she is OK for intubation in case of respiratory failure due to COVID pneumonia has frequent sundowning at around 6 pm. PRN geodon ordered. Seems to be in good spirits today. Geodon as needed. Stable at this time. No changes. (5) Hypertension Qualifiers: Hypertension type: essential hypertension Qualified Code(s): I10 - Essential (primary) hypertension Is this a current diagnosis for this admission?: Yes Plan: Currently blood pressure is within acceptable limits, will hold antihypertensive medications for now due to volume depletion -Good blood pressures. Add antihypertensives back judiciously according to blood pressure Good blood pressure control on current regimen. No changes for today. (6) Hypokalemia Is this a current diagnosis for this admission?: Yes Plan: Serum potassium level was 2.9>3.4>3.7 replace as needed Placed him on telemetry for monitoring Continue monitoring electrolytes and replete as necessary Recheck electrolytes tomorrow Potassium is normal (7) Hyponatremia Is this a current diagnosis for this admission?: Yes Plan: RESOLVED Likely hypovolemic hyponatremia due to volume depletion Continue monitoring BMP and correct electrolytes as necessary Recheck electrolytes tomorrow Mild and clinically insignificant at this time (8) Metabolic alkalosis Is this a current diagnosis for this admission?: Yes Plan: Likely from alkalosis from volume depletion encourage PO intake (9) Schizophrenia Is this a current diagnosis for this admission?: Yes Plan: receives Geodon for acute agitation monitor QTc QTc normal. Continue as needed antipsychotic. On trazodone, Cogentin and Depakote. (10) Transaminitis Is this a current diagnosis for this admission?: Yes Plan: - AST 366>225, ALT 54>63 - Hepatitis panel negative - statin stopped -Transaminases are normal. Consider restarting statin therapy at discharge - Time Time Spent with patient: 15-24 minutes Medications reviewed and adjusted accordingly: Yes Anticipated Discharge Disposition: Unknown Anticipated Discharge Timeframe: Unknown
[2020-04-30] MEDS: DEXAMETHASONE SOD PHOS INJ 10 MG/1 ML VIAL IV SCH (21:14)
[2020-04-30] MEDS: TRAZODONE HCL 50 MG TABLET PO SCH (21:14)
[2020-05-01 05:35] LABS: ABSOLUTE LYMPHOCYTES (AUTO) 0.7 10^3/uL (0.5-4.7); ABSOLUTE MONOCYTES (AUTO) 0.3 10^3/uL (0.1-1.4); BASOPHILS % (AUTO) 0.4 % (0-2); HEMATOCRIT 34.8 % (37.9-51.0); HEMOGLOBIN 12.2 g/dL (13.5-17.0); LYMPHOCYTES % (AUTO) 6.6 % (13-45); MEAN CORPUSCULAR HEMOGLOBIN 30.8 pg (27.0-33.4); MEAN CORPUSCULAR VOLUME 88 fl (80-97); MONOCYTES % (AUTO) 3.1 % (3-13); PLATELET COUNT 216 10^3/uL (150-450); RED BLOOD COUNT 3.96 10^6/uL (4.35-5.55); RED CELL DISTRIBUTION WIDTH 16.7 % (11.5-14.0); SEGMENTED NEUTROPHILS % (AUTO) 89.9 % (42-78); TOTAL CELLS COUNTED % (AUTO) 100 %
[2020-05-01 05:56] LABS: ALKALINE PHOSPHATASE 54 U/L (38-126); ANION GAP 8 (5-19); ASPARTATE AMINO TRANSFERASE 26 U/L (17-59); BILIRUBIN,DIRECT 0.3 mg/dL (0.0-0.4); BILIRUBIN,TOTAL 0.5 mg/dL (0.2-1.3); BLOOD UREA NITROGEN 22 mg/dL (7-20); CALCIUM 9.2 mg/dL (8.4-10.2); CARBON DIOXIDE 31 mmol/L (22-30); CHLORIDE 94 mmol/L (98-107); GLUCOSE 215 mg/dL (75-110); POTASSIUM 4.7 mmol/L (3.6-5.0); TOTAL PROTEIN 6.2 g/dL (6.3-8.2)
[2020-05-01] MEDS: IPRATROPIUM/ALBUTEROL 0.5-2.5 MG/3 ML AMPUL NEB SCH ×3 (08:19→20:39)
[2020-05-01] MEDS: HYDROCHLOROTHIAZIDE 12.5 MG TABLET PO SCH (09:42)
[2020-05-01] MEDS: ASCORBIC ACID 500 MG TABLET PO SCH ×2 (09:42→19:31)
[2020-05-01] MEDS: FAMOTIDINE 20 MG TABLET PO SCH ×2 (09:42→22:04)
[2020-05-01] MEDS: CHOLECALCIFEROL (D3) 1,000 UNIT (25 MCG) TABLET PO SCH (09:42)
[2020-05-01] MEDS: ZINC SULFATE 220 MG CAPSULE PO SCH (09:42)
[2020-05-01] MEDS: INSULIN LISPRO 100 UNIT/ML 3 ML VIAL SUBCUT SCH ×4 (09:43→22:04)
[2020-05-01] MEDS: BENZTROPINE MESYLATE 1 MG TABLET PO SCH ×2 (09:43→19:31)
[2020-05-01] MEDS: FLUTICASONE/VILANTEROL 100-25 MCG/DOSE IH SCH (09:43)
[2020-05-01] MEDS: FUROSEMIDE 40 MG TABLET PO SCH (09:45)
[2020-05-01] MEDS: ENOXAPARIN SODIUM INJ 40 MG/0.4 ML DISP.SYRIN SUBCUT SCH (09:46)
[2020-05-01] MEDS: LEVOFLOXACIN 750 MG/D5W RTU 750 MG/150 ML RTUPB IV SCH (09:46)
[2020-05-01] MEDS: DIVALPROEX SODIUM 500 MG TAB.SR.24H PO SCH (10:07)
--- NOTE | 2020-05-01 10:56 | PDOC PROGRESS REPORT ---
Subjective Date:: 05/01/20 Subjective:: Patient seen and evaluated. He appears to be relatively stable. Is on 15 L Oxy mizer with BiPAP on standby Reason For Visit: ACUTE HYPOXIC RESPIRATORY FAILURE PNUEMONIA DUE TO Physical Exam Vital Signs: Temp Pulse Resp BP Pulse Ox 98.3 F 63 16 123/62 96 05/01/20 08:00 05/01/20 08:19 05/01/20 08:19 05/01/20 08:00 05/01/20 08:19 Intake & Output 04/30/20 05/01/20 05/02/20 06:59 06:59 06:59 Intake Total 1380 1643 Output Total 825 850 Balance 555 793 Weight 80.1 kg 79 kg General appearance: PRESENT: no acute distress, well-nourished Head exam: PRESENT: atraumatic, normocephalic Eye exam: PRESENT: conjunctiva pink, EOMI, PERRLA. ABSENT: scleral icterus Neck exam: ABSENT: carotid bruit, JVD, lymphadenopathy, thyromegaly Respiratory exam: PRESENT: decreased breath sounds, unlabored. ABSENT: rales, rhonchi, wheezes Cardiovascular exam: PRESENT: RRR. ABSENT: diastolic murmur, rubs, systolic murmur Pulses: PRESENT: normal dorsalis pedis pul Vascular exam: PRESENT: normal capillary refill GI/Abdominal exam: PRESENT: normal bowel sounds, soft. ABSENT: distended, guarding, mass, organolmegaly, rebound, tenderness Rectal exam: PRESENT: deferred Extremities exam: PRESENT: full ROM. ABSENT: calf tenderness, clubbing, pedal edema Neurological exam: PRESENT: alert, awake, oriented to place, oriented to situation. ABSENT: motor sensory deficit Psychiatric exam: PRESENT: appropriate affect, normal mood. ABSENT: homicidal ideation, suicidal ideation Skin exam: PRESENT: dry, intact, warm. ABSENT: cyanosis, rash Results Laboratory Results: 05/01/20 04:19 05/01/20 04:19 05/01/20 05/01/20 04:19 04:19 WBC 10.0 RBC 3.96 L Hgb 12.2 L Hct 34.8 L MCV 88 MCH 30.8 MCHC 35.0 RDW 16.7 H Plt Count 216 Seg Neutrophils % 89.9 H Sodium 133.4 L Potassium 4.7 Chloride 94 L Carbon Dioxide 31 H Anion Gap 8 BUN 22 H Creatinine 0.61 Est GFR ( Amer) > 60 Glucose 215 H Calcium 9.2 Magnesium 1.8 Total Bilirubin 0.5 AST 26 Alkaline Phosphatase 54 Total Protein 6.2 L Albumin 3.0 L 04/18/20 04/18/20 04/24/20 17:14 21:15 06:41 Creatine Kinase 6115 H Troponin I 0.024 NT-Pro-B Natriuret Pep 535 H Impressions: Chest X-Ray 04/23/20 00:00 IMPRESSION: Worsening patchy bilateral interstitial and alveolar opacities, likely multifocal pneumonia. Edema is another consideration. No significant effusion. Assessment and Plan - Diagnosis (1) Acute respiratory failure with hypoxia Is this a current diagnosis for this admission?: Yes Plan: Patient was brought in after he developed fever and confusion transitioned to oxymizer Tested positive for COVID-19 Chest x-ray showed worsening multifocal pneumonia on dexa 6 Iv daily completed ivermectin remdesivir day 3 of 4 Continue zinc, vitamin C, vitamin D, on intranasal oxygen blood culture negative x 48 hrs 05/01 He is currently on IV dexamethasone-completed his other regimen. Will continue current management (2) Alzheimer's dementia Qualifiers: Alzheimer's disease onset: unspecified onset Is this a current diagnosis for this admission?: Yes Plan: Patient has an advanced dementia Was able to reach sister Ritchie RUBIO and she wants him DNR however she is OK for intubation in case of respiratory failure due to COVID pneumonia has frequent sundowning at around 6 pm. PRN abram ordered. 1.16 His mental status apparently waxes and wane. (3) COVID-19 Is this a current diagnosis for this admission?: Yes Plan: He has completed ivermectin and remdesivir. We will continue to manage with oxygen as well as dexamethasone and wean off as tolerated - Plan Summary Summary: (1) Acute respiratory failure with hypoxia Is this a current diagnosis for this admission?: Yes Plan: Tested positive for COVID-19 Chest x-ray showed worsening multifocal pneumonia on dexa 6 Iv daily completed ivermectin Completed Remdesivir Continue zinc, vitamin C, vitamin D, on intranasal oxygen blood culture negative x 48 hrs Now on Oxymizer oxygen. Taper as tolerated. Cannot tolerate Oxymizer for extended periods. Will likely need to use Oxymizer during meals and still use BiPAP for several hours at a time during the day. Continue to wean towards nasal cannula only. (2) Pneumonia due to COVID-19 virus Is this a current diagnosis for this admission?: Yes Plan: Patient currently admitted for hypoxic respiratory failure due to COVID-19 pneumonia CRP increased from 82.9>239 repeat CXR showed worsening multifocal pneumonia on remdesivir continue steroids, 2nd dose of ivermectin given, continue O2 support currently on bipap continue vitamin C, vitamin D, zinc Continue management as stated above No changes at this time. (3) History of COPD Is this a current diagnosis for this admission?: Yes Plan: -Continue breathing treatments with DuoNeb as needed started on breo -Continue inhaler therapy, steroids and slowly taper oxygen No change in treatment plan (4) Alzheimer's dementia Qualifiers: Alzheimer's disease onset: unspecified onset Is this a current diagnosis for this admission?: Yes Plan: Patient has an advanced dementia Was able to reach sister Ritchie RUBIO and she wants him DNR however she is OK for intubation in case of respiratory failure due to COVID pneumonia has frequent sundowning at around 6 pm. PRN geodon ordered. Seems to be in good spirits today. Geodon as needed. Stable at this time. No changes. (5) Hypertension Qualifiers: Hypertension type: essential hypertension Qualified Code(s): I10 - Essential (primary) hypertension Is this a current diagnosis for this admission?: Yes Plan: Currently blood pressure is within acceptable limits, will hold antihypertensive medications for now due to volume depletion -Good blood pressures. Add antihypertensives back judiciously according to blood pressure Good blood pressure control on current regimen. No changes for today. (6) Hypokalemia Is this a current diagnosis for this admission?: Yes Plan: Serum potassium level was 2.9>3.4>3.7 replace as needed Placed him on telemetry for monitoring Continue monitoring electrolytes and replete as necessary Recheck electrolytes tomorrow Potassium is normal (7) Hyponatremia Is this a current diagnosis for this admission?: Yes Plan: RESOLVED Likely hypovolemic hyponatremia due to volume depletion Continue monitoring BMP and correct electrolytes as necessary Recheck electrolytes tomorrow Mild and clinically insignificant at this time (8) Metabolic alkalosis Is this a current diagnosis for this admission?: Yes Plan: Likely from alkalosis from volume depletion encourage PO intake (9) Schizophrenia Is this a current diagnosis for this admission?: Yes Plan: receives Geodon for acute agitation monitor QTc QTc normal. Continue as needed antipsychotic. On trazodone, Cogentin and Depakote. (10) Transaminitis Is this a current diagnosis for this admission?: Yes Plan: - AST 366>225, ALT 54>63 - Hepatitis panel negative - statin stopped -Transaminases are normal. Consider restarting statin therapy at discharge - Time Time Spent with patient: 15-24 minutes Medications reviewed and adjusted accordingly: Yes Anticipated Discharge Disposition: Custodial Facility Anticipated Discharge Timeframe: within 72 hours
[2020-05-01] MEDS: DEXAMETHASONE SOD PHOS INJ 10 MG/1 ML VIAL IV SCH (22:04)
[2020-05-01] MEDS: TRAZODONE HCL 50 MG TABLET PO SCH (22:04)
[2020-05-02] MEDS: IPRATROPIUM/ALBUTEROL 0.5-2.5 MG/3 ML AMPUL NEB SCH ×3 (09:40→20:25)
[2020-05-02] MEDS: INSULIN LISPRO 100 UNIT/ML 3 ML VIAL SUBCUT SCH ×4 (09:52→21:38)
[2020-05-02] MEDS: ENOXAPARIN SODIUM INJ 40 MG/0.4 ML DISP.SYRIN SUBCUT SCH (10:29)
[2020-05-02] MEDS: ZINC SULFATE 220 MG CAPSULE PO SCH (10:29)
[2020-05-02] MEDS: DIVALPROEX SODIUM 500 MG TAB.SR.24H PO SCH (10:29)
[2020-05-02] MEDS: ASCORBIC ACID 500 MG TABLET PO SCH ×2 (10:29→17:16)
[2020-05-02] MEDS: FAMOTIDINE 20 MG TABLET PO SCH ×2 (10:30→21:38)
[2020-05-02] MEDS: FUROSEMIDE 40 MG TABLET PO SCH (10:30)
[2020-05-02] MEDS: CHOLECALCIFEROL (D3) 1,000 UNIT (25 MCG) TABLET PO SCH (10:30)
[2020-05-02] MEDS: BENZTROPINE MESYLATE 1 MG TABLET PO SCH ×2 (10:30→17:16)
[2020-05-02] MEDS: HYDROCHLOROTHIAZIDE 12.5 MG TABLET PO SCH (10:30)
[2020-05-02] MEDS: FLUTICASONE/VILANTEROL 100-25 MCG/DOSE IH SCH (10:30)
--- NOTE | 2020-05-02 11:52 | PDOC PROGRESS REPORT ---
Subjective Date:: 05/02/20 Subjective:: Patient seen and evaluated. He appears to be relatively stable. Remains on 15 L Oxymizer with BiPAP on standby Reason For Visit: ACUTE HYPOXIC RESPIRATORY FAILURE PNUEMONIA DUE TO Physical Exam Vital Signs: Temp Pulse Resp BP Pulse Ox 97.8 F 60 20 120/82 99 05/02/20 10:00 05/02/20 09:40 05/02/20 09:40 05/02/20 08:15 05/02/20 09:40 Intake & Output 05/01/20 05/02/20 05/03/20 06:59 06:59 06:59 Intake Total 1643 1222 Output Total 850 Balance 793 1222 Weight 79 kg 78.3 kg General appearance: PRESENT: no acute distress Head exam: PRESENT: atraumatic, normocephalic Eye exam: PRESENT: PERRLA. ABSENT: scleral icterus Mouth exam: PRESENT: tongue midline Neck exam: ABSENT: carotid bruit, JVD, lymphadenopathy, thyromegaly Respiratory exam: PRESENT: clear to auscultation rea. ABSENT: rales, rhonchi, wheezes Cardiovascular exam: PRESENT: RRR, +S1, +S2. ABSENT: diastolic murmur, rubs, systolic murmur Pulses: PRESENT: normal dorsalis pedis pul GI/Abdominal exam: PRESENT: normal bowel sounds, soft. ABSENT: distended, guarding, mass, organolmegaly, rebound, tenderness Rectal exam: PRESENT: deferred Extremities exam: PRESENT: full ROM. ABSENT: calf tenderness, clubbing, pedal edema Neurological exam: PRESENT: alert, awake, oriented to place. ABSENT: motor sensory deficit Psychiatric exam: PRESENT: normal mood. ABSENT: homicidal ideation, suicidal ideation Skin exam: PRESENT: dry, intact, warm. ABSENT: cyanosis, rash Results Laboratory Results: 05/01/20 04:19 05/01/20 04:19 04/18/20 04/18/20 04/24/20 17:14 21:15 06:41 Creatine Kinase 6115 H Troponin I 0.024 NT-Pro-B Natriuret Pep 535 H Impressions: Chest X-Ray 04/23/20 00:00 IMPRESSION: Worsening patchy bilateral interstitial and alveolar opacities, likely multifocal pneumonia. Edema is another consideration. No significant effusion. Assessment and Plan - Diagnosis (1) Acute respiratory failure with hypoxia Is this a current diagnosis for this admission?: Yes Plan: Patient was brought in after he developed fever and confusion transitioned to oxymizer Tested positive for COVID-19 Chest x-ray showed worsening multifocal pneumonia on dexa 6 Iv daily completed ivermectin remdesivir day 3 of 4 Continue zinc, vitamin C, vitamin D, on intranasal oxygen blood culture negative x 48 hrs 05/01 He is currently on IV dexamethasone-completed his other regimen. Will continue current management 05/02 patient condition remains status quo. He remains on IV dexamethasone and 15 L of oxygen on Oxymizer. Will continue with the same regimen and wean down as tolerated (2) Alzheimer's dementia Qualifiers: Alzheimer's disease onset: unspecified onset Is this a current diagnosis for this admission?: Yes (3) COVID-19 Is this a current diagnosis for this admission?: Yes - Plan Summary Summary: (1) Acute respiratory failure with hypoxia Is this a current diagnosis for this admission?: Yes Plan: Tested positive for COVID-19 Chest x-ray showed worsening multifocal pneumonia on dexa 6 Iv daily completed ivermectin Completed Remdesivir Continue zinc, vitamin C, vitamin D, on intranasal oxygen blood culture negative x 48 hrs Now on Oxymizer oxygen. Taper as tolerated. Cannot tolerate Oxymizer for extended periods. Will likely need to use Oxymizer during meals and still use BiPAP for several hours at a time during the day. Continue to wean towards nasal cannula only. (2) Pneumonia due to COVID-19 virus Is this a current diagnosis for this admission?: Yes Plan: Patient currently admitted for hypoxic respiratory failure due to COVID-19 pneumonia CRP increased from 82.9>239 repeat CXR showed worsening multifocal pneumonia on remdesivir continue steroids, 2nd dose of ivermectin given, continue O2 support currently on bipap continue vitamin C, vitamin D, zinc Continue management as stated above No changes at this time. (3) History of COPD Is this a current diagnosis for this admission?: Yes Plan: -Continue breathing treatments with DuoNeb as needed started on breo -Continue inhaler therapy, steroids and slowly taper oxygen No change in treatment plan (4) Alzheimer's dementia Qualifiers: Alzheimer's disease onset: unspecified onset Is this a current diagnosis for this admission?: Yes Plan: Patient has an advanced dementia Was able to reach sister Ritchie RUBIO and she wants him DNR however she is OK for intubation in case of respiratory failure due to COVID pneumonia has frequent sundowning at around 6 pm. PRN jenndon ordered. Seems to be in good spirits today. Geodon as needed. Stable at this time. No changes. (5) Hypertension Qualifiers: Hypertension type: essential hypertension Qualified Code(s): I10 - Essential (primary) hypertension Is this a current diagnosis for this admission?: Yes Plan: Currently blood pressure is within acceptable limits, will hold antihypertensive medications for now due to volume depletion -Good blood pressures. Add antihypertensives back judiciously according to blood pressure Good blood pressure control on current regimen. No changes for today. (6) Hypokalemia Is this a current diagnosis for this admission?: Yes Plan: Serum potassium level was 2.9>3.4>3.7 replace as needed Placed him on telemetry for monitoring Continue monitoring electrolytes and replete as necessary Recheck electrolytes tomorrow Potassium is normal (7) Hyponatremia Is this a current diagnosis for this admission?: Yes Plan: RESOLVED Likely hypovolemic hyponatremia due to volume depletion Continue monitoring BMP and correct electrolytes as necessary Recheck electrolytes tomorrow Mild and clinically insignificant at this time (8) Metabolic alkalosis Is this a current diagnosis for this admission?: Yes Plan: Likely from alkalosis from volume depletion encourage PO intake (9) Schizophrenia Is this a current diagnosis for this admission?: Yes Plan: receives Geodon for acute agitation monitor QTc QTc normal. Continue as needed antipsychotic. On trazodone, Cogentin and Depakote. (10) Transaminitis Is this a current diagnosis for this admission?: Yes Plan: - AST 366>225, ALT 54>63 - Hepatitis panel negative - statin stopped -Transaminases are normal. Consider restarting statin therapy at discharge - Time Time Spent with patient: 15-24 minutes Medications reviewed and adjusted accordingly: Yes Anticipated Discharge Disposition: Long Term Facility Anticipated Discharge Timeframe: within 72 hours
[2020-05-02] MEDS: DEXAMETHASONE SOD PHOS INJ 10 MG/1 ML VIAL IV SCH (21:37)
[2020-05-02] MEDS: TRAZODONE HCL 50 MG TABLET PO SCH (21:38)
[2020-05-03] MEDS: INSULIN LISPRO 100 UNIT/ML 3 ML VIAL SUBCUT SCH ×4 (08:45→21:46)
[2020-05-03] MEDS: FUROSEMIDE 40 MG TABLET PO SCH (08:47)
[2020-05-03] MEDS: IPRATROPIUM/ALBUTEROL 0.5-2.5 MG/3 ML AMPUL NEB SCH ×3 (08:48→21:02)
[2020-05-03] MEDS: ENOXAPARIN SODIUM INJ 40 MG/0.4 ML DISP.SYRIN SUBCUT SCH (09:18)
[2020-05-03] MEDS: FAMOTIDINE 20 MG TABLET PO SCH ×2 (09:18→21:44)
[2020-05-03] MEDS: HYDROCHLOROTHIAZIDE 12.5 MG TABLET PO SCH (09:18)
[2020-05-03] MEDS: CHOLECALCIFEROL (D3) 1,000 UNIT (25 MCG) TABLET PO SCH (09:19)
[2020-05-03] MEDS: ASCORBIC ACID 500 MG TABLET PO SCH ×2 (09:19→17:19)
[2020-05-03] MEDS: ZINC SULFATE 220 MG CAPSULE PO SCH (09:20)
[2020-05-03] MEDS: BENZTROPINE MESYLATE 1 MG TABLET PO SCH ×2 (09:20→17:19)
[2020-05-03] MEDS: FLUTICASONE/VILANTEROL 100-25 MCG/DOSE IH SCH (10:00)
[2020-05-03] MEDS: DIVALPROEX SODIUM 500 MG TAB.SR.24H PO SCH (12:26)
--- NOTE | 2020-05-03 15:01 | PDOC PROGRESS REPORT ---
Subjective Date:: 05/03/20 Subjective:: Patient seen and evaluated. Remains on 15 L Oxymizer with BiPAP on standby Reason For Visit: ACUTE HYPOXIC RESPIRATORY FAILURE PNUEMONIA DUE TO Physical Exam Vital Signs: Temp Pulse Resp BP Pulse Ox 97.9 F 86 18 138/76 H 94 05/03/20 11:57 05/03/20 13:50 05/03/20 13:50 05/03/20 11:57 05/03/20 13:50 Intake & Output 05/02/20 05/03/20 05/04/20 06:59 06:59 06:59 Intake Total 1222 1340 Output Total 150 Balance 1222 1190 Weight 78.3 kg 76.9 kg General appearance: PRESENT: no acute distress Head exam: PRESENT: atraumatic Respiratory exam: PRESENT: decreased breath sounds, unlabored. ABSENT: accessory muscle use GI/Abdominal exam: PRESENT: normal bowel sounds, soft. ABSENT: ascites Rectal exam: PRESENT: deferred Neurological exam: PRESENT: alert, awake, other - confused Results Laboratory Results: 05/01/20 04:19 05/01/20 04:19 04/18/20 04/18/20 04/24/20 17:14 21:15 06:41 Creatine Kinase 6115 H Troponin I 0.024 NT-Pro-B Natriuret Pep 535 H Impressions: Chest X-Ray 04/23/20 00:00 IMPRESSION: Worsening patchy bilateral interstitial and alveolar opacities, likely multifocal pneumonia. Edema is another consideration. No significant effusion. Assessment and Plan - Diagnosis (1) Acute respiratory failure with hypoxia Is this a current diagnosis for this admission?: Yes (2) Alzheimer's dementia Qualifiers: Alzheimer's disease onset: unspecified onset Is this a current diagnosis for this admission?: Yes (3) COVID-19 Is this a current diagnosis for this admission?: Yes - Plan Summary Summary: (1) Acute respiratory failure with hypoxia Is this a current diagnosis for this admission?: Yes Plan: Tested positive for COVID-19 Chest x-ray showed worsening multifocal pneumonia on dexa 6 Iv daily completed ivermectin Completed Remdesivir Continue zinc, vitamin C, vitamin D, on intranasal oxygen blood culture negative x 48 hrs Remains on Oxymizer oxygen. Taper as tolerated. (2) Pneumonia due to COVID-19 virus Is this a current diagnosis for this admission?: Yes P continue steroids, continue O2 support prn bipap continue vitamin C, vitamin D, zinc Continue management as stated above No changes at this time. (3) History of COPD Is this a current diagnosis for this admission?: Yes Plan: -Continue breathing treatments with DuoNeb as needed started on breo -Continue inhaler therapy, steroids and slowly taper oxygen No change in treatment plan (4) Alzheimer's dementia Qualifiers: Alzheimer's disease onset: unspecified onset Is this a current diagnosis for this admission?: Yes Plan: Patient has an advanced dementia 'Was able to reach sister Ritchie RUBIO and she wants him DNR however she is OK for intubation in case of respiratory failure due to COVID pneumonia' has frequent sundowning at around 6 pm. PRN maddie ordered. (5) Hypertension Qualifiers: Hypertension type: essential hypertension Qualified Code(s): I10 - Essential (primary) hypertension Is this a current diagnosis for this admission?: Yes Plan: Currently blood pressure is within acceptable limits, will hold antihypertensive medications for now due to volume depletion -Good blood pressures. Add antihypertensives back judiciously according to blood pressure Good blood pressure control on current regimen. No changes for today. (6) Hypokalemia Is this a current diagnosis for this admission?: Yes Plan: Replaced (7) Hyponatremia Is this a current diagnosis for this admission?: Yes Plan: RESOLVED (8) Metabolic alkalosis Is this a current diagnosis for this admission?: Yes Plan: Likely from alkalosis from volume depletion encourage PO intake (9) Schizophrenia Is this a current diagnosis for this admission?: Yes Plan: receives Maddie for acute agitation monitor QTc QTc normal. Continue as needed antipsychotic. On trazodone, Cogentin and Depakote. (10) Transaminitis Is this a current diagnosis for this admission?: Yes Plan: - AST 366>225, ALT 54>63 - Hepatitis panel negative - statin stopped -Transaminases are normal. Consider restarting statin therapy at discharge - Time Time Spent with patient: 15-24 minutes Medications reviewed and adjusted accordingly: Yes Anticipated Discharge Disposition: Senior Living Facility Anticipated Discharge Timeframe: TBD
[2020-05-03] MEDS: DEXAMETHASONE SOD PHOS INJ 10 MG/1 ML VIAL IV SCH (21:44)
[2020-05-03] MEDS: TRAZODONE HCL 50 MG TABLET PO SCH (21:44)
[2020-05-04 06:25] LABS: ABSOLUTE LYMPHOCYTES (AUTO) 0.8 10^3/uL (0.5-4.7); ABSOLUTE MONOCYTES (AUTO) 0.5 10^3/uL (0.1-1.4); ABSOLUTE NEUT (AUTO) 10.3 10^3/uL (1.7-8.2); BASOPHILS % (AUTO) 0.2 % (0-2); HEMATOCRIT 36.7 % (37.9-51.0); HEMOGLOBIN 12.6 g/dL (13.5-17.0); LYMPHOCYTES % (AUTO) 6.7 % (13-45); MEAN CORPUSCULAR HEMOGLOBIN 30.2 pg (27.0-33.4); MEAN CORPUSCULAR HGB CONC 34.4 g/dL (32.0-36.0); MEAN CORPUSCULAR VOLUME 88 fl (80-97); PLATELET COUNT 272 10^3/uL (150-450); RED BLOOD COUNT 4.18 10^6/uL (4.35-5.55); RED CELL DISTRIBUTION WIDTH 16.5 % (11.5-14.0); SEGMENTED NEUTROPHILS % (AUTO) 89.1 % (42-78); TOTAL CELLS COUNTED % (AUTO) 100 %; WHITE BLOOD COUNT 11.6 10^3/uL (4.0-10.5)
[2020-05-04 07:00] LABS: ANION GAP 6 (5-19); BLOOD UREA NITROGEN 30 mg/dL (7-20); CALCIUM 9.2 mg/dL (8.4-10.2); CARBON DIOXIDE 36 mmol/L (22-30); CHLORIDE 94 mmol/L (98-107); GLUCOSE 192 mg/dL (75-110)
[2020-05-04 07:03] LABS: POTASSIUM 4.8 mmol/L (3.6-5.0)
[2020-05-04] MEDS: INSULIN LISPRO 100 UNIT/ML 3 ML VIAL SUBCUT SCH ×4 (08:20→21:46)
[2020-05-04] MEDS: FUROSEMIDE 40 MG TABLET PO SCH (08:21)
[2020-05-04] MEDS: IPRATROPIUM/ALBUTEROL 0.5-2.5 MG/3 ML AMPUL NEB SCH ×3 (08:28→20:58)
[2020-05-04] MEDS: DIVALPROEX SODIUM 500 MG TAB.SR.24H PO SCH (10:45)
[2020-05-04] MEDS: FAMOTIDINE 20 MG TABLET PO SCH ×2 (10:45→21:46)
[2020-05-04] MEDS: CHOLECALCIFEROL (D3) 1,000 UNIT (25 MCG) TABLET PO SCH (10:45)
[2020-05-04] MEDS: ASCORBIC ACID 500 MG TABLET PO SCH ×2 (10:45→17:16)
[2020-05-04] MEDS: ZINC SULFATE 220 MG CAPSULE PO SCH (10:45)
[2020-05-04] MEDS: HYDROCHLOROTHIAZIDE 12.5 MG TABLET PO SCH (10:45)
[2020-05-04] MEDS: BENZTROPINE MESYLATE 1 MG TABLET PO SCH ×2 (10:45→17:16)
[2020-05-04] MEDS: ENOXAPARIN SODIUM INJ 40 MG/0.4 ML DISP.SYRIN SUBCUT SCH (10:46)
[2020-05-04] MEDS: FLUTICASONE/VILANTEROL 100-25 MCG/DOSE IH SCH (10:46)
--- NOTE | 2020-05-04 13:07 | PDOC PROGRESS REPORT ---
Subjective Date:: 05/04/20 Subjective:: Patient seen and evaluated. Patient finally does appear to be improving. He i s down to about 10 L of oxygen this morning with his oxygen saturation above 90%. He is mental status about the same. He is hemodynamically stable. Reason For Visit: ACUTE HYPOXIC RESPIRATORY FAILURE PNUEMONIA DUE TO Physical Exam Vital Signs: Temp Pulse Resp BP Pulse Ox 98.2 F 102 H 16 122/72 93 05/04/20 11:35 05/04/20 11:35 05/04/20 11:35 05/04/20 11:35 05/04/20 11:35 Intake & Output 05/03/20 05/04/20 05/05/20 06:59 06:59 06:59 Intake Total 1340 1220 Output Total 150 Balance 1190 1220 Weight 76.9 kg 78.4 kg General appearance: PRESENT: no acute distress, well-developed, well-nourished Head exam: PRESENT: atraumatic, normocephalic Eye exam: PRESENT: conjunctiva pink, EOMI, PERRLA. ABSENT: scleral icterus Ear exam: PRESENT: normal external ear exam Neck exam: ABSENT: carotid bruit, JVD, lymphadenopathy, thyromegaly Respiratory exam: PRESENT: clear to auscultation rea, unlabored. ABSENT: rales, rhonchi, wheezes Cardiovascular exam: PRESENT: RRR, +S1, +S2. ABSENT: diastolic murmur, rubs, systolic murmur Pulses: PRESENT: normal dorsalis pedis pul Vascular exam: PRESENT: normal capillary refill GI/Abdominal exam: PRESENT: normal bowel sounds, soft. ABSENT: distended, guarding, mass, organolmegaly, rebound, tenderness Rectal exam: PRESENT: deferred Extremities exam: PRESENT: full ROM. ABSENT: calf tenderness, clubbing, pedal edema Neurological exam: PRESENT: alert, awake. ABSENT: motor sensory deficit Psychiatric exam: PRESENT: appropriate affect, normal mood. ABSENT: homicidal ideation, suicidal ideation Skin exam: PRESENT: dry, intact, warm. ABSENT: cyanosis, rash Results Laboratory Results: 05/04/20 05:29 05/04/20 05:29 05/04/20 05/04/20 05:29 05:29 WBC 11.6 H RBC 4.18 L Hgb 12.6 L Hct 36.7 L MCV 88 MCH 30.2 MCHC 34.4 RDW 16.5 H Plt Count 272 Seg Neutrophils % 89.1 H Sodium 135.5 L Potassium 4.8 Chloride 94 L Carbon Dioxide 36 H Anion Gap 6 BUN 30 H Creatinine 0.74 Est GFR ( Amer) > 60 Glucose 192 H Calcium 9.2 04/18/20 04/18/20 04/24/20 17:14 21:15 06:41 Creatine Kinase 6115 H Troponin I 0.024 NT-Pro-B Natriuret Pep 535 H Impressions: Chest X-Ray 04/23/20 00:00 IMPRESSION: Worsening patchy bilateral interstitial and alveolar opacities, likely multifocal pneumonia. Edema is another consideration. No significant effusion. Assessment and Plan - Diagnosis (1) Acute respiratory failure with hypoxia Is this a current diagnosis for this admission?: Yes (2) Alzheimer's dementia Qualifiers: Alzheimer's disease onset: unspecified onset Is this a current diagnosis for this admission?: Yes (3) COVID-19 Is this a current diagnosis for this admission?: Yes - Plan Summary Summary: (1) Acute respiratory failure with hypoxia Is this a current diagnosis for this admission?: Yes Plan: Tested positive for COVID-19 Chest x-ray showed worsening multifocal pneumonia on dexa 6 Iv daily completed ivermectin Completed Remdesivir Continue zinc, vitamin C, vitamin D, on intranasal oxygen blood culture negative x 48 hrs Remains on Oxymizer oxygen. Taper as tolerated. (2) Pneumonia due to COVID-19 virus Is this a current diagnosis for this admission?: Yes P continue steroids, will start to taper dexamethasone as patient's appears to be stabilizing. He has been on 6 mg since April 19 continue O2 support prn bipap continue vitamin C, vitamin D, zinc Continue management as stated above No changes at this time. (3) History of COPD Is this a current diagnosis for this admission?: Yes Plan: -Continue breathing treatments with DuoNeb as needed started on breo -Continue inhaler therapy, taper steroids and slowly taper oxygen No change in treatment plan (4) Alzheimer's dementia Qualifiers: Alzheimer's disease onset: unspecified onset Is this a current diagnosis for this admission?: Yes Plan: Patient has an advanced dementia 'Was able to reach sister Ritchie RUBIO and she wants him DNR however she is OK for intubation in case of respiratory failure due to COVID pneumonia' has frequent sundowning at around 6 pm. PRN geodon ordered. (5) Hypertension Qualifiers: Hypertension type: essential hypertension Qualified Code(s): I10 - Essential (primary) hypertension Is this a current diagnosis for this admission?: Yes Plan: Currently blood pressure is within acceptable limits, will hold antihypertensive medications for now due to volume depletion -Good blood pressures. Add antihypertensives back judiciously according to blood pressure Good blood pressure control on current regimen. No changes for today. (6) Hypokalemia Is this a current diagnosis for this admission?: Yes Plan: Replaced (7) Hyponatremia Is this a current diagnosis for this admission?: Yes Plan: RESOLVED (8) Metabolic alkalosis Is this a current diagnosis for this admission?: Yes Plan: Likely from alkalosis from volume depletion encourage PO intake (9) Schizophrenia Is this a current diagnosis for this admission?: Yes Plan: receives Geodon for acute agitation monitor QTc QTc normal. Continue as needed antipsychotic. On trazodone, Cogentin and Depakote. (10) Transaminitis Is this a current diagnosis for this admission?: Yes Plan: - AST 366>225, ALT 54>63 - Hepatitis panel negative - statin stopped -Transaminases are normal. Consider restarting statin therapy at discharge - Time Time Spent with patient: 15-24 minutes Medications reviewed and adjusted accordingly: Yes Anticipated Discharge Disposition: Care Home Facility Anticipated Discharge Timeframe: when bed available
[2020-05-04] MEDS: DEXAMETHASONE SOD PHOS INJ 10 MG/1 ML VIAL IV SCH (21:46)
[2020-05-04] MEDS: TRAZODONE HCL 50 MG TABLET PO SCH (21:46)
[2020-05-05] MEDS: IPRATROPIUM/ALBUTEROL 0.5-2.5 MG/3 ML AMPUL NEB SCH ×3 (08:28→20:42)
[2020-05-05] MEDS: ZINC SULFATE 220 MG CAPSULE PO SCH (09:21)
[2020-05-05] MEDS: HYDROCHLOROTHIAZIDE 12.5 MG TABLET PO SCH (09:21)
[2020-05-05] MEDS: ASCORBIC ACID 500 MG TABLET PO SCH ×2 (09:21→17:09)
[2020-05-05] MEDS: FAMOTIDINE 20 MG TABLET PO SCH ×2 (09:21→21:56)
[2020-05-05] MEDS: CHOLECALCIFEROL (D3) 1,000 UNIT (25 MCG) TABLET PO SCH (09:21)
[2020-05-05] MEDS: INSULIN LISPRO 100 UNIT/ML 3 ML VIAL SUBCUT SCH ×4 (09:22→21:56)
[2020-05-05] MEDS: FUROSEMIDE 40 MG TABLET PO SCH (09:22)
[2020-05-05] MEDS: FLUTICASONE/VILANTEROL 100-25 MCG/DOSE IH SCH (09:22)
[2020-05-05] MEDS: BENZTROPINE MESYLATE 1 MG TABLET PO SCH ×2 (09:22→17:09)
[2020-05-05] MEDS: ENOXAPARIN SODIUM INJ 40 MG/0.4 ML DISP.SYRIN SUBCUT SCH (09:23)
[2020-05-05] MEDS: DIVALPROEX SODIUM 500 MG TAB.SR.24H PO SCH (12:12)
--- NOTE | 2020-05-05 14:43 | PDOC PROGRESS REPORT ---
Subjective Date:: 05/05/20 Subjective:: Patient seen and evaluated. Patient finally does appear to be improving. He i s down to about 7 L of oxygen this morning with his oxygen saturation above 90%. His mental status is about the same. He is hemodynamically stable. Reason For Visit: ACUTE HYPOXIC RESPIRATORY FAILURE PNUEMONIA DUE TO Physical Exam Vital Signs: Temp Pulse Resp BP Pulse Ox 98.4 F 70 16 138/72 H 96 05/05/20 11:42 05/05/20 14:05 05/05/20 14:05 05/05/20 11:42 05/05/20 11:42 Intake & Output 05/04/20 05/05/20 05/06/20 06:59 06:59 06:59 Intake Total 1220 1160 120 Balance 1220 1160 120 Weight 78.4 kg 80.4 kg General appearance: PRESENT: no acute distress, well-nourished Head exam: PRESENT: atraumatic, normocephalic Eye exam: PRESENT: EOMI, PERRLA. ABSENT: scleral icterus Ear exam: PRESENT: normal external ear exam Mouth exam: PRESENT: moist, tongue midline Neck exam: ABSENT: carotid bruit, JVD, lymphadenopathy, thyromegaly Respiratory exam: PRESENT: clear to auscultation rea, unlabored. ABSENT: rales, rhonchi, wheezes Cardiovascular exam: PRESENT: RRR, +S1, +S2. ABSENT: diastolic murmur, rubs, systolic murmur Pulses: PRESENT: normal dorsalis pedis pul Vascular exam: PRESENT: normal capillary refill GI/Abdominal exam: PRESENT: normal bowel sounds, soft. ABSENT: distended, gua rding, mass, organolmegaly, rebound, tenderness Rectal exam: PRESENT: deferred Extremities exam: PRESENT: full ROM. ABSENT: calf tenderness, clubbing, pedal edema Neurological exam: PRESENT: alert, awake, oriented to person, CN II-XII grossly intact. ABSENT: motor sensory deficit Psychiatric exam: PRESENT: appropriate affect, normal mood. ABSENT: homicidal ideation, suicidal ideation Skin exam: PRESENT: dry, intact, warm. ABSENT: cyanosis, rash Results Laboratory Results: 05/04/20 05:29 05/04/20 05:29 04/18/20 04/18/20 04/24/20 17:14 21:15 06:41 Creatine Kinase 6115 H Troponin I 0.024 NT-Pro-B Natriuret Pep 535 H Impressions: Chest X-Ray 04/23/20 00:00 IMPRESSION: Worsening patchy bilateral interstitial and alveolar opacities, likely multifocal pneumonia. Edema is another consideration. No significant effusion. Assessment and Plan - Diagnosis (1) Acute respiratory failure with hypoxia Is this a current diagnosis for this admission?: Yes (2) Alzheimer's dementia Qualifiers: Alzheimer's disease onset: unspecified onset Is this a current diagnosis for this admission?: Yes (3) COVID-19 Is this a current diagnosis for this admission?: Yes - Plan Summary Summary: (1) Acute respiratory failure with hypoxia Is this a current diagnosis for this admission?: Yes Plan: Tested positive for COVID-19 Chest x-ray showed worsening multifocal pneumonia on dexa 4 Iv daily since 05/04 Continue to taper oxygen and steroids as tolerated completed ivermectin Completed Remdesivir Continue zinc, vitamin C, vitamin D, on intranasal oxygen blood culture negative x 48 hrs Remains on Oxymizer oxygen. Taper as tolerated. (2) Pneumonia due to COVID-19 virus Is this a current diagnosis for this admission?: Yes P continue steroids, will start to taper dexamethasone as patient's appears to be stabilizing. He has been on 6 mg since April 19 continue O2 support prn bipap continue vitamin C, vitamin D, zinc Continue management as stated above No changes at this time. (3) History of COPD Is this a current diagnosis for this admission?: Yes Plan: -Continue breathing treatments with DuoNeb as needed started on breo -Continue inhaler therapy, taper steroids and slowly taper oxygen No change in treatment plan (4) Alzheimer's dementia Qualifiers: Alzheimer's disease onset: unspecified onset Is this a current diagnosis for this admission?: Yes Plan: Patient has an advanced dementia 'Was able to reach sister Ritchie RUBIO and she wants him DNR however she is OK for intubation in case of respiratory failure due to COVID pneumonia' has frequent sundowning at around 6 pm. PRN jenndon ordered. (5) Hypertension Qualifiers: Hypertension type: essential hypertension Qualified Code(s): I10 - Essential (primary) hypertension Is this a current diagnosis for this admission?: Yes Plan: Currently blood pressure is within acceptable limits, will hold antihypertensive medications for now due to volume depletion -Good blood pressures. Add antihypertensives back judiciously according to blood pressure Good blood pressure control on current regimen. No changes for today. (6) Hypokalemia Is this a current diagnosis for this admission?: Yes Plan: Replaced (7) Hyponatremia Is this a current diagnosis for this admission?: Yes Plan: RESOLVED (8) Metabolic alkalosis Is this a current diagnosis for this admission?: Yes Plan: Likely from alkalosis from volume depletion encourage PO intake (9) Schizophrenia Is this a current diagnosis for this admission?: Yes Plan: receives Maddie for acute agitation monitor QTc QTc normal. Continue as needed antipsychotic. On trazodone, Cogentin and Depakote. Patient has been relatively quiet over the last few days (10) Transaminitis Is this a current diagnosis for this admission?: Yes Plan: - AST 366>225, ALT 54>63 - Hepatitis panel negative - statin stopped -Transaminases are normal. Consider restarting statin therapy at discharge - Time Time Spent with patient: 15-24 minutes Anticipated Discharge Disposition: [facility] Anticipated Discharge Timeframe: within 72 hours
[2020-05-05] MEDS: TRAZODONE HCL 50 MG TABLET PO SCH (21:56)
[2020-05-05] MEDS: DEXAMETHASONE SOD PHOS INJ 10 MG/1 ML VIAL IV SCH (21:56)
[2020-05-06] MEDS: INSULIN LISPRO 100 UNIT/ML 3 ML VIAL SUBCUT SCH ×4 (07:48→21:48)
[2020-05-06] MEDS: FUROSEMIDE 40 MG TABLET PO SCH (07:48)
[2020-05-06] MEDS: IPRATROPIUM/ALBUTEROL 0.5-2.5 MG/3 ML AMPUL NEB SCH ×3 (08:32→20:30)
[2020-05-06] MEDS: CHOLECALCIFEROL (D3) 1,000 UNIT (25 MCG) TABLET PO SCH (10:39)
[2020-05-06] MEDS: ASCORBIC ACID 500 MG TABLET PO SCH ×2 (10:39→18:21)
[2020-05-06] MEDS: HYDROCHLOROTHIAZIDE 12.5 MG TABLET PO SCH (10:39)
[2020-05-06] MEDS: DIVALPROEX SODIUM 500 MG TAB.SR.24H PO SCH (10:39)
[2020-05-06] MEDS: BENZTROPINE MESYLATE 1 MG TABLET PO SCH ×2 (10:39→18:21)
[2020-05-06] MEDS: FAMOTIDINE 20 MG TABLET PO SCH ×2 (10:39→21:38)
[2020-05-06] MEDS: ENOXAPARIN SODIUM INJ 40 MG/0.4 ML DISP.SYRIN SUBCUT SCH (10:40)
[2020-05-06] MEDS: ZINC SULFATE 220 MG CAPSULE PO SCH (10:40)
[2020-05-06] MEDS: FLUTICASONE/VILANTEROL 100-25 MCG/DOSE IH SCH (10:40)
[2020-05-06] MEDS: POLYETHYLENE GLYCOL 3350 POWDER 17 GM/1 PACKET PO SCH (11:43)
--- NOTE | 2020-05-06 19:30 | PDOC PROGRESS REPORT ---
Subjective Date:: 05/06/20 Subjective:: YAHAIRA SAUER is a 69 year old male with a history of Alzheimer's dementia, s chizophrenia, COPD and hyperlipidemia who is brought in from [facility] after he was noted to have fever and change in his mental status from baseline. Patient is unable to give any meaningful answer and history was from ER signout and chart review. During transfer he had a temperature of 103.1 and he was given Tylenol by EMS which brought down his temperature. On arrival to the ED patient was saturating 87% on room air and was tachycardic. Further work-up indicates: Positive for COVID-19 with imaging findings consistent with Covid infection and currently being admitted to acute medicine floor for management of hypoxic respiratory failure. D1 Hospital stay 04/19/20 patient was seen and examined at bedside. He was on 2L of nasal cannula appears comfortable. He denies chest pain, palpitations or cough. Dementia seems at baseline. D2 Hospital stay 04/20/20 Patient was seen and examined at bedside. Per night nurse he became agitated and needed restraints. Today he was more calm and we were able to take the restraints off of him. He denies any SOB, O2 sat 99% on 3L of NC, so far has shown no increase in O2 needs. D3 hospital stay 04/21/20 Patient was seen and examined at bedside. He was again put back on restraints last night due to sundowning despite frequent re orientation. Otherwise, O2 sat is stable at 2L NC. He has completed Ivermectin doses.We will try to wean him off O2 tomorrow. D4 Hospital stay 04/22/20 Patient was seen and examined at bedside. On restraints again but he's very calm so I removed his restraints, otherwise he is not complaining of any SOB. I have told the nurse to wean him off O2. Otherwise he is doing well in terms of his COVID infection. D5 hospital stay 04/23/20 Patient was seen and examined at bedside. He was noted to be desaturating last night and had to be put back on bipap. He is currently on bipap 50% saturating 94%. He is otherwise stable. He usually starts to get agitated and sundown at around 6 pm requiring geodon. He was diagnosed with C OVID Apr 18 so he is 1 week into his diagnosis and this is the time that patients usually take a turn for the worse. D6 hospital stay 04/24/20 Patient was seen and examined at bedside. He is still on bipap 70% FIO2 to maintain sats above 91%. Repeat CXR showed worsening patchy bilateral interstitial and alveolar opacities. He has previously received Ivermectin and has been on steroids since admission. He was started on remdesivir today for worsening pneumonia, also on levaquin for possible HAP pending Procalcitonin and repeat blood cultures. Also received convalescent plasma. I was able to speak to his sister Ritchie and her and after discussion they stated that they want him DNR but they are OK for Intubation if its for respiratory failure. Please refer to ACP note. D7 Hospital stay 04/25/20 Patient was seen and examined at bedside. He is more agitated today compared to yesterday, would intermittently take his bipap off. Currently at 65% FIO2 saturating 95%. D8 hospital stay 04/26/20 Patient seen and examined at bedside. He's calm this morning, not taking off his bipap mask. Currently at 60% FIO2 on BIPAP. D9 hospital stay 04/27/20 Patient was seen and examined at bedside. No new symptoms. Oxygen needs are decreasing, he is on oxymizer. he is on D3 of 4 of remdesivir. Once done with remdesivir and o2 needs has decreased just a regular nasal cannula patient may go back to [facility]. I was able to update his brother in law today. D11 hospital stay 04/29/20 Patient was seen and examined at bedside. HE is on Oxymixer saturating 93%. Calm today, denies SOB. Afebrile with good appetite. D18 hospital stay 05/06/20 Patient was seen and examined at bedside. He looks com fortable on 3L of nasal cannula. Denies any SOB, eager to go home. Possible discharge tomorrow Reason For Visit: ACUTE HYPOXIC RESPIRATORY FAILURE PNUEMONIA DUE TO Physical Exam Vital Signs: Temp Pulse Resp BP Pulse Ox 98.7 F 59 L 20 126/67 H 97 05/06/20 16:00 05/06/20 16:00 05/06/20 16:00 05/06/20 16:00 05/06/20 16:00 Intake & Output 05/05/20 05/06/20 05/07/20 06:59 06:59 06:59 Intake Total 1160 1080 550 Output Total 425 400 Balance 1160 655 150 Weight 80.4 kg 60.3 kg General appearance: PRESENT: no acute distress, cooperative Head exam: PRESENT: atraumatic, normocephalic Eye exam: PRESENT: EOMI, PERRLA Mouth exam: PRESENT: moist Neck exam: PRESENT: full ROM Respiratory exam: PRESENT: clear to auscultation rea, symmetrical, unlabored Cardiovascular exam: PRESENT: RRR, +S1, +S2 Pulses: PRESENT: +2 pedal pulses bilateral GI/Abdominal exam: PRESENT: normal bowel sounds, soft. ABSENT: rebound, tenderness Extremities exam: PRESENT: full ROM Musculoskeletal exam: PRESENT: full ROM Neurological exam: PRESENT: alert, awake, oriented to person, oriented to place, oriented to time, oriented to situation Psychiatric exam: PRESENT: normal mood Skin exam: PRESENT: normal color Results Laboratory Results: 05/04/20 05:29 05/04/20 05:29 04/18/20 04/18/20 04/24/20 17:14 21:15 06:41 Creatine Kinase 6115 H Troponin I 0.024 NT-Pro-B Natriuret Pep 535 H Impressions: Chest X-Ray 04/23/20 00:00 IMPRESSION: Worsening patchy bilateral interstitial and alveolar opacities, likely multifocal pneumonia. Edema is another consideration. No significant effusion. Assessment and Plan - Diagnosis (1) Acute respiratory failure with hypoxia Is this a current diagnosis for this admission?: Yes Plan: Patient was brought in after he developed fever and confusion transitioned to oxymizer Tested positive for COVID-19 Chest x-ray showed worsening multifocal pneumonia on dexa 6 Iv daily completed ivermectin completed remdesivir Continue zinc, vitamin C, vitamin D, on intranasal oxygen blood culture negative x 48 hrs (2) Pneumonia due to COVID-19 virus Is this a current diagnosis for this admission?: Yes Plan: Patient currently admitted for hypoxic respiratory failure due to COVID-19 pneumonia CRP increased from 82.9>239 repeat CXR showed worsening multifocal pneumonia completed remdesivir continue steroids, 2nd dose of ivermectin given, continue O2 support currently on bipap continue vitamin C, vitamin D, zinc steroid would have to be tapered as he's gotten it for more than 2 weeks Continue management as stated above (3) History of COPD Is this a current diagnosis for this admission?: Yes Plan: Continue breathing treatments with DuoNeb as needed started on breo (4) Alzheimer's dementia Qualifiers: Alzheimer's disease onset: unspecified onset Is this a current diagnosis for this admission?: Yes Plan: Patient has an advanced dementia Was able to reach sister Ritchie RUBIO and she wants him DNR however she is OK for intubation in case of respiratory failure due to COVID pneumonia has frequent sundowning at around 6 pm. PRN abram ordered. 1.16 His mental status apparently waxes and wane. (5) Hypertension Qualifiers: Hypertension type: essential hypertension Qualified Code(s): I10 - Ess ential (primary) hypertension Is this a current diagnosis for this admission?: Yes Plan: Currently blood pressure is within acceptable limits, will hold antihypertensive medications for now due to volume depletion (6) Hypokalemia Is this a current diagnosis for this admission?: Yes Plan: Serum potassium level was 2.9>3.4>3.7 replace as needed Placed him on telemetry for monitoring Continue monitoring electrolytes and replete as necessary (7) Hyponatremia Is this a current diagnosis for this admission?: Yes Plan: RESOLVED Likely hypovolemic hyponatremia due to volume depletion Continue monitoring BMP and correct electrolytes as necessary (8) Metabolic alkalosis Is this a current diagnosis for this admission?: Yes Plan: Likely from alkalosis from volume depletion encourage PO intake (9) Schizophrenia Is this a current diagnosis for this admission?: Yes Plan: receives Abram for acute agitation monitor QTc (10) Transaminitis Is this a current diagnosis for this admission?: Yes Plan: - AST 366>225, ALT 54>63 - Hepatitis panel negative - statin stopped - Time Time Spent with patient: 25-34 minutes Medications reviewed and adjusted accordingly: Yes Anticipated Discharge Disposition: Nursing Home Facility Anticipated Discharge Timeframe: within 24 hours
[2020-05-06] MEDS: DEXAMETHASONE SOD PHOS INJ 10 MG/1 ML VIAL IV SCH (21:38)
[2020-05-06] MEDS: TRAZODONE HCL 50 MG TABLET PO SCH (21:38)
[2020-05-07] MEDS: INSULIN LISPRO 100 UNIT/ML 3 ML VIAL SUBCUT SCH ×4 (08:17→21:19)
[2020-05-07] MEDS: FUROSEMIDE 40 MG TABLET PO SCH (08:18)
[2020-05-07] MEDS: IPRATROPIUM/ALBUTEROL 0.5-2.5 MG/3 ML AMPUL NEB SCH ×3 (08:36→19:39)
[2020-05-07] MEDS: FLUTICASONE/VILANTEROL 100-25 MCG/DOSE IH SCH (10:32)
[2020-05-07] MEDS: FAMOTIDINE 20 MG TABLET PO SCH ×2 (11:47→21:18)
[2020-05-07] MEDS: DIVALPROEX SODIUM 500 MG TAB.SR.24H PO SCH (11:47)
[2020-05-07] MEDS: ZINC SULFATE 220 MG CAPSULE PO SCH (11:48)
[2020-05-07] MEDS: CHOLECALCIFEROL (D3) 1,000 UNIT (25 MCG) TABLET PO SCH (11:48)
[2020-05-07] MEDS: HYDROCHLOROTHIAZIDE 12.5 MG TABLET PO SCH (11:48)
[2020-05-07] MEDS: ENOXAPARIN SODIUM INJ 40 MG/0.4 ML DISP.SYRIN SUBCUT SCH (11:48)
[2020-05-07] MEDS: BENZTROPINE MESYLATE 1 MG TABLET PO SCH ×2 (11:48→21:18)
[2020-05-07] MEDS: POLYETHYLENE GLYCOL 3350 POWDER 17 GM/1 PACKET PO SCH (11:52)
[2020-05-07] MEDS: ASCORBIC ACID 500 MG TABLET PO SCH ×2 (12:10→17:46)
--- NOTE | 2020-05-07 17:01 | PDOC PROGRESS REPORT ---
Subjective Date:: 05/07/20 Subjective:: YAHAIRA SAUER is a 69 year old male with a history of Alzheimer's dementia, s chizophrenia, COPD and hyperlipidemia who is brought in from [facility] after he was noted to have fever and change in his mental status from baseline. Patient is unable to give any meaningful answer and history was from ER signout and chart review. During transfer he had a temperature of 103.1 and he was given Tylenol by EMS which brought down his temperature. On arrival to the ED patient was saturating 87% on room air and was tachycardic. Further work-up indicates: Positive for COVID-19 with imaging findings consistent with Covid infection and currently being admitted to acute medicine floor for management of hypoxic respiratory failure. D1 Hospital stay 04/19/20 patient was seen and examined at bedside. He was on 2L of nasal cannula appears comfortable. He denies chest pain, palpitations or cough. Dementia seems at baseline. D2 Hospital stay 04/20/20 Patient was seen and examined at bedside. Per night nurse he became agitated and needed restraints. Today he was more calm and we were able to take the restraints off of him. He denies any SOB, O2 sat 99% on 3L of NC, so far has shown no increase in O2 needs. D3 hospital stay 04/21/20 Patient was seen and examined at bedside. He was again put back on restraints last night due to sundowning despite frequent re orientation. Otherwise, O2 sat is stable at 2L NC. He has completed Ivermectin doses.We will try to wean him off O2 tomorrow. D4 Hospital stay 04/22/20 Patient was seen and examined at bedside. On restraints again but he's very calm so I removed his restraints, otherwise he is not complaining of any SOB. I have told the nurse to wean him off O2. Otherwise he is doing well in terms of his COVID infection. D5 hospital stay 04/23/20 Patient was seen and examined at bedside. He was noted to be desaturating last night and had to be put back on bipap. He is currently on bipap 50% saturating 94%. He is otherwise stable. He usually starts to get agitated and sundown at around 6 pm requiring geodon. He was diagnosed with C OVID Apr 18 so he is 1 week into his diagnosis and this is the time that patients usually take a turn for the worse. D6 hospital stay 04/24/20 Patient was seen and examined at bedside. He is still on bipap 70% FIO2 to maintain sats above 91%. Repeat CXR showed worsening patchy bilateral interstitial and alveolar opacities. He has previously received Ivermectin and has been on steroids since admission. He was started on remdesivir today for worsening pneumonia, also on levaquin for possible HAP pending Procalcitonin and repeat blood cultures. Also received convalescent plasma. I was able to speak to his sister Ritchie and her and after discussion they stated that they want him DNR but they are OK for Intubation if its for respiratory failure. Please refer to ACP note. D7 Hospital stay 04/25/20 Patient was seen and examined at bedside. He is more agitated today compared to yesterday, would intermittently take his bipap off. Currently at 65% FIO2 saturating 95%. D8 hospital stay 04/26/20 Patient seen and examined at bedside. He's calm this morning, not taking off his bipap mask. Currently at 60% FIO2 on BIPAP. D9 hospital stay 04/27/20 Patient was seen and examined at bedside. No new symptoms. Oxygen needs are decreasing, he is on oxymizer. he is on D3 of 4 of remdesivir. Once done with remdesivir and o2 needs has decreased just a regular nasal cannula patient may go back to [facility]. I was able to update his brother in law today. D11 hospital stay 04/29/20 Patient was seen and examined at bedside. HE is on Oxymixer saturating 93%. Calm today, denies SOB. Afebrile with good appetite. D18 hospital stay 05/06/20 Patient was seen and examined at bedside. He looks com fortable on 3L of nasal cannula. Denies any SOB, eager to go home. Possible discharge tomorrow D19 hospital stay 05/07/20 Patient was seen and examined at bedside. Currently on 3L simple nasal cannula sats 95%. Patient is stable to be transferred back to [facility] on 3l nasal cannula. Reason For Visit: ACUTE HYPOXIC RESPIRATORY FAILURE PNUEMONIA DUE TO Physical Exam Vital Signs: Temp Pulse Resp BP Pulse Ox 98.3 F 93 20 131/79 H 96 05/07/20 16:00 05/07/20 16:00 05/07/20 16:00 05/07/20 16:00 05/07/20 16:00 Intake & Output 05/06/20 05/07/20 05/08/20 06:59 06:59 06:59 Intake Total 1080 1110 380 Output Total 425 800 Balance 655 310 380 Weight 60.3 kg 59.4 kg 59.4 kg General appearance: PRESENT: no acute distress, cooperative Head exam: PRESENT: atraumatic, normocephalic Eye exam: PRESENT: EOMI, PERRLA Mouth exam: PRESENT: moist Neck exam: PRESENT: full ROM Respiratory exam: PRESENT: clear to auscultation rea, symmetrical, unlabored Cardiovascular exam: PRESENT: RRR, +S1, +S2 Pulses: PRESENT: +2 pedal pulses bilateral GI/Abdominal exam: PRESENT: normal bowel sounds, soft. ABSENT: rebound, tenderness Extremities exam: PRESENT: full ROM Musculoskeletal exam: PRESENT: full ROM Neurological exam: PRESENT: alert, awake, oriented to person, oriented to place, oriented to time, oriented to situation Psychiatric exam: PRESENT: normal mood, unusual affect Skin exam: PRESENT: normal color Results Laboratory Results: 05/04/20 05:29 05/04/20 05:29 04/18/20 04/18/20 04/24/20 17:14 21:15 06:41 Creatine Kinase 6115 H Troponin I 0.024 NT-Pro-B Natriuret Pep 535 H Impressions: Chest X-Ray 04/23/20 00:00 IMPRESSION: Worsening patchy bilateral interstitial and alveolar opacities, likely multifocal pneumonia. Edema is another consideration. No significant effusion. Assessment and Plan - Diagnosis (1) Acute respiratory failure with hypoxia Is this a current diagnosis for this admission?: Yes Plan: Patient was brought in after he developed fever and confusion transitioned to oxymizer Tested positive for COVID-19 Chest x-ray showed worsening multifocal pneumonia on dexa 6 Iv daily completed ivermectin completed remdesivir Continue zinc, vitamin C, vitamin D, on intranasal oxygen streoids switched to oral prednisone to start taper (2) Pneumonia due to COVID-19 virus Is this a current diagnosis for this admission?: Yes Plan: Patient currently admitted for hypoxic respiratory failure due to COVID-19 pneumonia CRP increased from 82.9>239 repeat CXR showed worsening multifocal pneumonia completed remdesivir streoids switched to oral to taper continue O2 support currently on bipap continue vitamin C, vitamin D, zinc Continue management as stated above (3) History of COPD Is this a current diagnosis for this admission?: Yes Plan: Continue breathing treatments with DuoNeb as needed started on breo (4) Alzheimer's dementia Qualifiers: Alzheimer's disease onset: unspecified onset Is this a current diagnosis for this admission?: Yes Plan: Patient has an advanced dementia Was able to reach sister Ritchie RUBIO and she wants him DNR however she is OK for intubation in case of respiratory failure due to COVID pneumonia has frequent sundowning at around 6 pm. PRN abram ordered. 1.16 His mental status apparently waxes and wane. (5) Hypertension Qualifiers: Hypertension type: essential hypertension Qualified Code(s): I10 - Essential (primary) hypertension Is this a current diagnosis for this admission?: Yes Plan: Currently blood pressure is within acceptable limits, will resume on discharge (6) Hypokalemia Is this a current diagnosis for this admission?: Yes Plan: Serum potassium level was 2.9>3.4>3.7 replace as needed Continue monitoring electrolytes and replete as necessary (7) Hyponatremia Is this a current diagnosis for this admission?: Yes Plan: RESOLVED Likely hypovolemic hyponatremia due to volume depletion Continue monitoring BMP and correct electrolytes as necessary (8) Metabolic alkalosis Is this a current diagnosis for this admission?: Yes Plan: Likely from alkalosis from volume depletion encourage PO intake (9) Schizophrenia Is this a current diagnosis for this admission?: Yes Plan: receives Abram for acute agitation monitor QTc (10) Transaminitis Is this a current diagnosis for this admission?: Yes Plan: - AST 366>225, ALT 54>63 - Hepatitis panel negative - statin stopped - Plan Summary Summary: Patient is ready for discharge to [facility] - Time Time Spent with patient: 15-24 minutes Medications reviewed and adjusted accordingly: Yes Anticipated Discharge Disposition: Long Term Facility Anticipated Discharge Timeframe: within 48 hours
[2020-05-07] MEDS: TRAZODONE HCL 50 MG TABLET PO SCH (21:18)
[2020-05-08] MEDS: IPRATROPIUM/ALBUTEROL 0.5-2.5 MG/3 ML AMPUL NEB SCH ×3 (07:58→19:32)
[2020-05-08] MEDS: ZINC SULFATE 220 MG CAPSULE PO SCH (09:14)
[2020-05-08] MEDS: PREDNISONE 20 MG TABLET PO SCH (09:14)
[2020-05-08] MEDS: FAMOTIDINE 20 MG TABLET PO SCH ×2 (09:15→21:46)
[2020-05-08] MEDS: CHOLECALCIFEROL (D3) 1,000 UNIT (25 MCG) TABLET PO SCH (09:15)
[2020-05-08] MEDS: HYDROCHLOROTHIAZIDE 12.5 MG TABLET PO SCH (09:16)
[2020-05-08] MEDS: BENZTROPINE MESYLATE 1 MG TABLET PO SCH ×2 (09:16→18:47)
[2020-05-08] MEDS: ASCORBIC ACID 500 MG TABLET PO SCH ×2 (09:16→18:45)
[2020-05-08] MEDS: INSULIN LISPRO 100 UNIT/ML 3 ML VIAL SUBCUT SCH ×4 (09:16→21:46)
[2020-05-08] MEDS: FUROSEMIDE 40 MG TABLET PO SCH (09:16)
[2020-05-08] MEDS: FLUTICASONE/VILANTEROL 100-25 MCG/DOSE IH SCH (09:18)
[2020-05-08] MEDS: ENOXAPARIN SODIUM INJ 40 MG/0.4 ML DISP.SYRIN SUBCUT SCH (09:18)
[2020-05-08] MEDS: POLYETHYLENE GLYCOL 3350 POWDER 17 GM/1 PACKET PO SCH (09:18)
[2020-05-08] MEDS: DIVALPROEX SODIUM 500 MG TAB.SR.24H PO SCH (11:55)
--- NOTE | 2020-05-08 14:53 | PDOC PROGRESS REPORT ---
Subjective Date:: 05/08/20 Subjective:: YAHAIRA SAUER is a 69 year old male with a history of Alzheimer's dementia, s chizophrenia, COPD and hyperlipidemia who is brought in from [facility] after he was noted to have fever and change in his mental status from baseline. Patient is unable to give any meaningful answer and history was from ER signout and chart review. During transfer he had a temperature of 103.1 and he was given Tylenol by EMS which brought down his temperature. On arrival to the ED patient was saturating 87% on room air and was tachycardic. Further work-up indicates: Positive for COVID-19 with imaging findings consistent with Covid infection and currently being admitted to acute medicine floor for management of hypoxic respiratory failure. D1 Hospital stay 04/19/20 patient was seen and examined at bedside. He was on 2L of nasal cannula appears comfortable. He denies chest pain, palpitations or cough. Dementia seems at baseline. D2 Hospital stay 04/20/20 Patient was seen and examined at bedside. Per night nurse he became agitated and needed restraints. Today he was more calm and we were able to take the restraints off of him. He denies any SOB, O2 sat 99% on 3L of NC, so far has shown no increase in O2 needs. D3 hospital stay 04/21/20 Patient was seen and examined at bedside. He was again put back on restraints last night due to sundowning despite frequent re orientation. Otherwise, O2 sat is stable at 2L NC. He has completed Ivermectin doses.We will try to wean him off O2 tomorrow. D4 Hospital stay 04/22/20 Patient was seen and examined at bedside. On restraints again but he's very calm so I removed his restraints, otherwise he is not complaining of any SOB. I have told the nurse to wean him off O2. Otherwise he is doing well in terms of his COVID infection. D5 hospital stay 04/23/20 Patient was seen and examined at bedside. He was noted to be desaturating last night and had to be put back on bipap. He is currently on bipap 50% saturating 94%. He is otherwise stable. He usually starts to get agitated and sundown at around 6 pm requiring geodon. He was diagnosed with C OVID Apr 18 so he is 1 week into his diagnosis and this is the time that patients usually take a turn for the worse. D6 hospital stay 04/24/20 Patient was seen and examined at bedside. He is still on bipap 70% FIO2 to maintain sats above 91%. Repeat CXR showed worsening patchy bilateral interstitial and alveolar opacities. He has previously received Ivermectin and has been on steroids since admission. He was started on remdesivir today for worsening pneumonia, also on levaquin for possible HAP pending Procalcitonin and repeat blood cultures. Also received convalescent plasma. I was able to speak to his sister Ritchie and her and after discussion they stated that they want him DNR but they are OK for Intubation if its for respiratory failure. Please refer to ACP note. D7 Hospital stay 04/25/20 Patient was seen and examined at bedside. He is more agitated today compared to yesterday, would intermittently take his bipap off. Currently at 65% FIO2 saturating 95%. D8 hospital stay 04/26/20 Patient seen and examined at bedside. He's calm this morning, not taking off his bipap mask. Currently at 60% FIO2 on BIPAP. D9 hospital stay 04/27/20 Patient was seen and examined at bedside. No new symptoms. Oxygen needs are decreasing, he is on oxymizer. he is on D3 of 4 of remdesivir. Once done with remdesivir and o2 needs has decreased just a regular nasal cannula patient may go back to [facility]. I was able to update his brother in law today. D11 hospital stay 04/29/20 Patient was seen and examined at bedside. HE is on Oxymixer saturating 93%. Calm today, denies SOB. Afebrile with good appetite. D18 hospital stay 05/06/20 Patient was seen and examined at bedside. He looks com fortable on 3L of nasal cannula. Denies any SOB, eager to go home. Possible discharge tomorrow D19 hospital stay 05/07/20 Patient was seen and examined at bedside. Currently on 3L simple nasal cannula sats 95%. Patient is stable to be transferred back to [facility] on 3l nasal cannula. D10 hospital stay 05/08/20 Patient was seen and examined at bedside. Doing well on room air, able to ambulate. Per discharge planning [facility] will not be able to take him because of increased medical needs. SNF referrals made awaiting acceptance. Reason For Visit: ACUTE HYPOXIC RESPIRATORY FAILURE PNUEMONIA DUE TO Physical Exam Vital Signs: Temp Pulse Resp BP Pulse Ox 97.6 F 69 17 121/74 96 05/08/20 07:47 05/08/20 14:03 05/08/20 14:03 05/08/20 11:25 05/08/20 14:03 Intake & Output 05/07/20 05/08/20 05/09/20 06:59 06:59 06:59 Intake Total 1110 1140 600 Output Total 800 650 550 Balance 310 490 50 Weight 59.4 kg 58.5 kg General appearance: PRESENT: no acute distress, cooperative Head exam: PRESENT: atraumatic, normocephalic Eye exam: PRESENT: EOMI, PERRLA Mouth exam: PRESENT: moist Neck exam: PRESENT: full ROM Respiratory exam: PRESENT: clear to auscultation rea, symmetrical, unlabored Cardiovascular exam: PRESENT: RRR, +S1, +S2 Pulses: PRESENT: +1 pedal pulses bilateral GI/Abdominal exam: PRESENT: normal bowel sounds, soft. ABSENT: rebound, te nderness Extremities exam: PRESENT: full ROM Musculoskeletal exam: PRESENT: full ROM Neurological exam: PRESENT: alert, awake, oriented to person, oriented to place, oriented to time, oriented to situation Psychiatric exam: PRESENT: normal mood Skin exam: PRESENT: normal color Results Laboratory Results: 05/04/20 05:29 05/04/20 05:29 04/18/20 04/18/20 04/24/20 17:14 21:15 06:41 Creatine Kinase 6115 H Troponin I 0.024 NT-Pro-B Natriuret Pep 535 H Impressions: Chest X-Ray 04/23/20 00:00 IMPRESSION: Worsening patchy bilateral interstitial and alveolar opacities, likely multifocal pneumonia. Edema is another consideration. No significant effusion. Assessment and Plan - Diagnosis (1) Acute respiratory failure with hypoxia Is this a current diagnosis for this admission?: Yes Plan: Patient was brought in after he developed fever and confusion transitioned to oxymizer Tested positive for COVID-19 Chest x-ray showed worsening multifocal pneumonia on dexa 6 Iv daily completed ivermectin completed remdesivir Continue zinc, vitamin C, vitamin D, on intranasal oxygen streroids switched to oral prednisone to start taper 10 mg per week till tapered off (2) Pneumonia due to COVID-19 virus Is this a current diagnosis for this admission?: Yes Plan: RESOLVED Patient currently admitted for hypoxic respiratory failure due to COVID-19 pneumonia CRP increased from 82.9>239 repeat CXR showed worsening multifocal pneumonia completed remdesivir streoids switched to oral to taper continue vitamin C, vitamin D, zinc Continue management as stated above (3) History of COPD Is this a current diagnosis for this admission?: Yes Plan: Continue breathing treatments with DuoNeb as needed started on breo (4) Alzheimer's dementia Qualifiers: Alzheimer's disease onset: unspecified onset Is this a current diagnosis for this admission?: Yes Plan: Patient has an advanced dementia Was able to reach sister Ritchie RUBIO and she wants him DNR however she is OK for intubation in case of respiratory failure due to COVID pneumonia has frequent sundowning at around 6 pm. JASSI valverde ordered. 1.16 His mental status apparently waxes and wane. (5) Hypertension Qualifiers: Hypertension type: essential hypertension Qualified Code(s): I10 - Essential (primary) hypertension Is this a current diagnosis for this admission?: Yes Plan: Currently blood pressure is within acceptable limits, will resume on discharge (6) Hypokalemia Is this a current diagnosis for this admission?: Yes Plan: Serum potassium level was 2.9>3.4>3.7 replace as needed Continue monitoring electrolytes and replete as necessary (7) Hyponatremia Is this a current diagnosis for this admission?: Yes Plan: RESOLVED Likely hypovolemic hyponatremia due to volume depletion Continue monitoring BMP and correct electrolytes as necessary (8) Metabolic alkalosis Is this a current diagnosis for this admission?: Yes Plan: Likely from alkalosis from volume depletion encourage PO intake (9) Schizophrenia Is this a current diagnosis for this admission?: Yes Plan: receives Maddie for acute agitation monitor QTc (10) Transaminitis Is this a current diagnosis for this admission?: Yes Plan: - AST 366>225, ALT 54>63 - Hepatitis panel negative - statin stopped - Plan Summary Summary: Awaiting SNF placement - Time Time Spent with patient: 25-34 minutes Medications reviewed and adjusted accordingly: Yes Anticipated Discharge Disposition: [facility] Anticipated Discharge Timeframe: within 48 hours
[2020-05-08] MEDS: TRAZODONE HCL 50 MG TABLET PO SCH (21:46)
[2020-05-09] MEDS: INSULIN LISPRO 100 UNIT/ML 3 ML VIAL SUBCUT SCH ×4 (07:40→21:40)
[2020-05-09] MEDS: FUROSEMIDE 40 MG TABLET PO SCH (08:07)
[2020-05-09] MEDS: IPRATROPIUM/ALBUTEROL 0.5-2.5 MG/3 ML AMPUL NEB SCH ×3 (08:11→19:57)
[2020-05-09] MEDS: ZINC SULFATE 220 MG CAPSULE PO SCH (11:13)
[2020-05-09] MEDS: DIVALPROEX SODIUM 500 MG TAB.SR.24H PO SCH (11:13)
[2020-05-09] MEDS: CHOLECALCIFEROL (D3) 1,000 UNIT (25 MCG) TABLET PO SCH (11:14)
[2020-05-09] MEDS: BENZTROPINE MESYLATE 1 MG TABLET PO SCH ×2 (11:14→18:29)
[2020-05-09] MEDS: FAMOTIDINE 20 MG TABLET PO SCH ×2 (11:14→21:40)
[2020-05-09] MEDS: ASCORBIC ACID 500 MG TABLET PO SCH ×2 (11:14→18:29)
[2020-05-09] MEDS: PREDNISONE 20 MG TABLET PO SCH (11:14)
[2020-05-09] MEDS: ENOXAPARIN SODIUM INJ 40 MG/0.4 ML DISP.SYRIN SUBCUT SCH (11:15)
[2020-05-09] MEDS: HYDROCHLOROTHIAZIDE 12.5 MG TABLET PO SCH (11:15)
[2020-05-09] MEDS: FLUTICASONE/VILANTEROL 100-25 MCG/DOSE IH SCH (11:24)
[2020-05-09] MEDS: POLYETHYLENE GLYCOL 3350 POWDER 17 GM/1 PACKET PO SCH (11:25)
--- NOTE | 2020-05-09 16:59 | PDOC PROGRESS REPORT ---
Subjective Date:: 05/09/20 Subjective:: YAHAIRA SAUER is a 69 year old male with a history of Alzheimer's dementia, s chizophrenia, COPD and hyperlipidemia who is brought in from [facility] after he was noted to have fever and change in his mental status from baseline. Patient is unable to give any meaningful answer and history was from ER signout and chart review. During transfer he had a temperature of 103.1 and he was given Tylenol by EMS which brought down his temperature. On arrival to the ED patient was saturating 87% on room air and was tachycardic. Further work-up indicates: Positive for COVID-19 with imaging findings consistent with Covid infection and currently being admitted to acute medicine floor for management of hypoxic respiratory failure. D1 Hospital stay 04/19/20 patient was seen and examined at bedside. He was on 2L of nasal cannula appears comfortable. He denies chest pain, palpitations or cough. Dementia seems at baseline. D2 Hospital stay 04/20/20 Patient was seen and examined at bedside. Per night nurse he became agitated and needed restraints. Today he was more calm and we were able to take the restraints off of him. He denies any SOB, O2 sat 99% on 3L of NC, so far has shown no increase in O2 needs. D3 hospital stay 04/21/20 Patient was seen and examined at bedside. He was again put back on restraints last night due to sundowning despite frequent re orientation. Otherwise, O2 sat is stable at 2L NC. He has completed Ivermectin doses.We will try to wean him off O2 tomorrow. D4 Hospital stay 04/22/20 Patient was seen and examined at bedside. On restraints again but he's very calm so I removed his restraints, otherwise he is not complaining of any SOB. I have told the nurse to wean him off O2. Otherwise he is doing well in terms of his COVID infection. D5 hospital stay 04/23/20 Patient was seen and examined at bedside. He was noted to be desaturating last night and had to be put back on bipap. He is currently on bipap 50% saturating 94%. He is otherwise stable. He usually starts to get agitated and sundown at around 6 pm requiring geodon. He was diagnosed with C OVID Apr 18 so he is 1 week into his diagnosis and this is the time that patients usually take a turn for the worse. D6 hospital stay 04/24/20 Patient was seen and examined at bedside. He is still on bipap 70% FIO2 to maintain sats above 91%. Repeat CXR showed worsening patchy bilateral interstitial and alveolar opacities. He has previously received Ivermectin and has been on steroids since admission. He was started on remdesivir today for worsening pneumonia, also on levaquin for possible HAP pending Procalcitonin and repeat blood cultures. Also received convalescent plasma. I was able to speak to his sister Ritchie and her and after discussion they stated that they want him DNR but they are OK for Intubation if its for respiratory failure. Please refer to ACP note. D7 Hospital stay 04/25/20 Patient was seen and examined at bedside. He is more agitated today compared to yesterday, would intermittently take his bipap off. Currently at 65% FIO2 saturating 95%. D8 hospital stay 04/26/20 Patient seen and examined at bedside. He's calm this morning, not taking off his bipap mask. Currently at 60% FIO2 on BIPAP. D9 hospital stay 04/27/20 Patient was seen and examined at bedside. No new symptoms. Oxygen needs are decreasing, he is on oxymizer. he is on D3 of 4 of remdesivir. Once done with remdesivir and o2 needs has decreased just a regular nasal cannula patient may go back to [facility]. I was able to update his brother in law today. D11 hospital stay 04/29/20 Patient was seen and examined at bedside. HE is on Oxymixer saturating 93%. Calm today, denies SOB. Afebrile with good appetite. D18 hospital stay 05/06/20 Patient was seen and examined at bedside. He looks com fortable on 3L of nasal cannula. Denies any SOB, eager to go home. Possible discharge tomorrow D19 hospital stay 05/07/20 Patient was seen and examined at bedside. Currently on 3L simple nasal cannula sats 95%. Patient is stable to be transferred back to [facility] on 3l nasal cannula. D10 hospital stay 05/08/20 Patient was seen and examined at bedside. Doing well on room air, able to ambulate. Per discharge planning [facility] will not be able to take him because of increased medical needs. SNF referrals made awaiting acceptance. D11 hospital stay 05/09/20 Patient was seen and examined at bedside. No new complains, not agitated. Completed COVID treatment. Awaiting SNF placement Reason For Visit: ACUTE HYPOXIC RESPIRATORY FAILURE PNUEMONIA DUE TO Physical Exam Vital Signs: Temp Pulse Resp BP Pulse Ox 98.3 F 91 18 125/67 94 05/09/20 15:22 05/09/20 15:22 05/09/20 15:22 05/09/20 15:22 05/09/20 15:22 Intake & Output 05/08/20 05/09/20 05/10/20 06:59 06:59 06:59 Intake Total 1140 2160 760 Output Total 650 1750 Balance 490 410 760 Weight 58.5 kg General appearance: PRESENT: no acute distress, cooperative Head exam: PRESENT: atraumatic, normocephalic Eye exam: PRESENT: EOMI, PERRLA Mouth exam: PRESENT: moist Neck exam: PRESENT: full ROM Respiratory exam: PRESENT: clear to auscultation rea, symmetrical, unlabored Cardiovascular exam: PRESENT: RRR, +S1, +S2 Pulses: PRESENT: +2 pedal pulses bilateral GI/Abdominal exam: PRESENT: normal bowel sounds, soft. ABSENT: rebound, tenderness Extremities exam: PRESENT: full ROM Musculoskeletal exam: PRESENT: full ROM Neurological exam: PRESENT: alert, awake. ABSENT: oriented to person, oriented to place, oriented to time, oriented to situation Skin exam: PRESENT: normal color Results Laboratory Results: 05/04/20 05:29 05/04/20 05:29 04/18/20 04/18/20 04/24/20 17:14 21:15 06:41 Creatine Kinase 6115 H Troponin I 0.024 NT-Pro-B Natriuret Pep 535 H Impressions: Chest X-Ray 04/23/20 00:00 IMPRESSION: Worsening patchy bilateral interstitial and alveolar opacities, likely multifocal pneumonia. Edema is another consideration. No significant effusion. Assessment and Plan - Diagnosis (1) Acute respiratory failure with hypoxia Is this a current diagnosis for this admission?: Yes Plan: Patient was brought in after he developed fever and confusion transitioned to oxymizer Tested positive for COVID-19 Chest x-ray showed worsening multifocal pneumonia on dexa 6 Iv daily completed ivermectin completed remdesivir Continue zinc, vitamin C, vitamin D, on intranasal oxygen streroids switched to oral prednisone to start taper 10 mg per week till tapered off. PLEASE TAPER STEROIDS OFF ON DISCHARGE (2) Pneumonia due to COVID-19 virus Is this a current diagnosis for this admission?: Yes Plan: RESOLVED Patient currently admitted for hypoxic respiratory failure due to COVID-19 pneumonia CRP increased from 82.9>239 repeat CXR showed worsening multifocal pneumonia completed remdesivir streoids switched to oral to taper continue vitamin C, vitamin D, zinc Continue management as stated above (3) History of COPD Is this a current diagnosis for this admission?: Yes Plan: Continue breathing treatments with DuoNeb as needed started on breo (4) Alzheimer's dementia Qualifiers: Alzheimer's disease onset: unspecified onset Is this a current diagnosis for this admission?: Yes Plan: Patient has an advanced dementia Was able to reach sister Ritchie RUBIO and she wants him DNR however she is OK for intubation in case of respiratory failure due to COVID pneumonia has frequent sundowning at around 6 pm. PRASANTHN abram ordered. 1.16 His mental status apparently waxes and wane. (5) Hypertension Qualifiers: Hypertension type: essential hypertension Qualified Code(s): I10 - Essential (primary) hypertension Is this a current diagnosis for this admission?: Yes Plan: Currently blood pressure is within acceptable limits, will resume on discharge (6) Hypokalemia Is this a current diagnosis for this admission?: Yes Plan: Serum potassium level was 2.9>3.4>3.7 replace as needed Continue monitoring electrolytes and replete as necessary (7) Hyponatremia Is this a current diagnosis for this admission?: Yes Plan: RESOLVED Likely hypovolemic hyponatremia due to volume depletion Continue monitoring BMP and correct electrolytes as necessary (8) Metabolic alkalosis Is this a current diagnosis for this admission?: Yes Plan: Likely from alkalosis from volume depletion encourage PO intake (9) Schizophrenia Is this a current diagnosis for this admission?: Yes Plan: receives Abram for acute agitation monitor QTc (10) Transaminitis Is this a current diagnosis for this admission?: Yes Plan: - AST 366>225, ALT 54>63 - Hepatitis panel negative - statin stopped - Plan Summary Summary: Awaiting SNF placement - Time Time Spent with patient: 15-24 minutes Medications reviewed and adjusted accordingly: Yes Anticipated Discharge Disposition: [facility] Facility Anticipated Discharge Timeframe: tbd
[2020-05-09] MEDS: TRAZODONE HCL 50 MG TABLET PO SCH (21:40)
[2020-05-10] MEDS: INSULIN LISPRO 100 UNIT/ML 3 ML VIAL SUBCUT SCH ×4 (07:56→22:38)
[2020-05-10] MEDS: FUROSEMIDE 40 MG TABLET PO SCH (08:16)
[2020-05-10] MEDS: IPRATROPIUM/ALBUTEROL 0.5-2.5 MG/3 ML AMPUL NEB SCH ×3 (08:47→20:02)
[2020-05-10] MEDS: POLYETHYLENE GLYCOL 3350 POWDER 17 GM/1 PACKET PO SCH (11:16)
[2020-05-10] MEDS: HYDROCHLOROTHIAZIDE 12.5 MG TABLET PO SCH (11:16)
[2020-05-10] MEDS: DIVALPROEX SODIUM 500 MG TAB.SR.24H PO SCH (11:17)
[2020-05-10] MEDS: ZINC SULFATE 220 MG CAPSULE PO SCH (11:17)
[2020-05-10] MEDS: ASCORBIC ACID 500 MG TABLET PO SCH ×2 (11:17→17:45)
[2020-05-10] MEDS: BENZTROPINE MESYLATE 1 MG TABLET PO SCH ×2 (11:17→17:45)
[2020-05-10] MEDS: FAMOTIDINE 20 MG TABLET PO SCH ×2 (11:17→22:39)
[2020-05-10] MEDS: CHOLECALCIFEROL (D3) 1,000 UNIT (25 MCG) TABLET PO SCH (11:18)
[2020-05-10] MEDS: PREDNISONE 20 MG TABLET PO SCH (11:18)
[2020-05-10] MEDS: FLUTICASONE/VILANTEROL 100-25 MCG/DOSE IH SCH (11:19)
[2020-05-10] MEDS: ENOXAPARIN SODIUM INJ 40 MG/0.4 ML DISP.SYRIN SUBCUT SCH (11:19)
--- NOTE | 2020-05-10 14:38 | PDOC PROGRESS REPORT ---
Subjective Date:: 05/10/20 Subjective:: Complains of some right shoulder pain. Reason For Visit: ACUTE HYPOXIC RESPIRATORY FAILURE PNUEMONIA DUE TO Physical Exam Vital Signs: Temp Pulse Resp BP Pulse Ox 97.5 F 76 18 126/55 H 90 L 05/10/20 12:09 05/10/20 12:09 05/10/20 12:09 05/10/20 12:09 05/10/20 12:09 Intake & Output 05/09/20 05/10/20 05/11/20 06:59 06:59 06:59 Intake Total 2160 2377 496 Output Total 1750 250 Balance 410 2127 496 Weight 58.5 kg General appearance: PRESENT: no acute distress, cooperative Neck exam: ABSENT: JVD Respiratory exam: PRESENT: clear to auscultation rea, unlabored. ABSENT: wheezes Cardiovascular exam: PRESENT: RRR, +S1, +S2. ABSENT: tachycardia GI/Abdominal exam: PRESENT: soft. ABSENT: tenderness Neurological exam: PRESENT: alert, awake, oriented to person. ABSENT: oriented to time, oriented to situation Psychiatric exam: ABSENT: agitated, anxious Skin exam: ABSENT: jaundice Results Laboratory Results: 05/04/20 05:29 05/04/20 05:29 04/18/20 04/18/20 04/24/20 17:14 21:15 06:41 Creatine Kinase 6115 H Troponin I 0.024 NT-Pro-B Natriuret Pep 535 H Impressions: Chest X-Ray 04/23/20 00:00 IMPRESSION: Worsening patchy bilateral interstitial and alveolar opacities, likely multifocal pneumonia. Edema is another consideration. No significant effusion. Assessment and Plan - Diagnosis (1) Acute respiratory failure with hypoxia Is this a current diagnosis for this admission?: Yes Plan: On 2 L nc (2) Pneumonia due to COVID-19 virus Is this a current diagnosis for this admission?: Yes Plan: Resolved (3) Alzheimer's dementia Qualifiers: Alzheimer's disease onset: unspecified onset Is this a current diagnosis for this admission?: Yes (4) History of COPD Is this a current diagnosis for this admission?: Yes Plan: Continue breathing treatments with DuoNeb as needed started on breo Weaning prednisone (5) Hypokalemia Is this a current diagnosis for this admission?: Yes Plan: Repeat electrolytes. (6) Metabolic alkalosis Is this a current diagnosis for this admission?: Yes (7) Schizophrenia Is this a current diagnosis for this admission?: Yes (8) Transaminitis Is this a current diagnosis for this admission?: Yes - Plan Summary Summary: Awaiting SNF placement - Time Time Spent with patient: 15-24 minutes [facility] Anticipated Discharge Timeframe: when bed available
[2020-05-10 17:17] LABS: ABSOLUTE LYMPHOCYTES (AUTO) 0.6 10^3/uL (0.5-4.7); ABSOLUTE MONOCYTES (AUTO) 0.4 10^3/uL (0.1-1.4); ABSOLUTE NEUT (AUTO) 9.9 10^3/uL (1.7-8.2); BASOPHILS % (AUTO) 0.1 % (0-2); HEMATOCRIT 38.2 % (37.9-51.0); HEMOGLOBIN 12.9 g/dL (13.5-17.0); LYMPHOCYTES % (AUTO) 5.8 % (13-45); MEAN CORPUSCULAR HEMOGLOBIN 30.1 pg (27.0-33.4); MEAN CORPUSCULAR HGB CONC 33.9 g/dL (32.0-36.0); MEAN CORPUSCULAR VOLUME 89 fl (80-97); MONOCYTES % (AUTO) 3.9 % (3-13); PLATELET COUNT 241 10^3/uL (150-450); RED CELL DISTRIBUTION WIDTH 17.5 % (11.5-14.0); SEGMENTED NEUTROPHILS % (AUTO) 90.2 % (42-78); TOTAL CELLS COUNTED % (AUTO) 100 %
[2020-05-10 17:31] LABS: ANION GAP 10 (5-19); BLOOD UREA NITROGEN 22 mg/dL (7-20); CALCIUM 9.8 mg/dL (8.4-10.2); CARBON DIOXIDE 31 mmol/L (22-30); CHLORIDE 93 mmol/L (98-107); GLUCOSE 189 mg/dL (75-110); POTASSIUM 4.6 mmol/L (3.6-5.0)
[2020-05-10] MEDS: TRAZODONE HCL 50 MG TABLET PO SCH (22:39)
[2020-05-11] MEDS: FUROSEMIDE 40 MG TABLET PO SCH (08:23)
[2020-05-11] MEDS: INSULIN LISPRO 100 UNIT/ML 3 ML VIAL SUBCUT SCH ×4 (08:33→21:41)
[2020-05-11] MEDS: IPRATROPIUM/ALBUTEROL 0.5-2.5 MG/3 ML AMPUL NEB SCH ×3 (08:39→19:56)
[2020-05-11 09:08] LABS: HEMATOCRIT 38.5 % (37.9-51.0); HEMOGLOBIN 12.8 g/dL (13.5-17.0); MEAN CORPUSCULAR HGB CONC 33.3 g/dL (32.0-36.0); MEAN CORPUSCULAR VOLUME 90 fl (80-97); PLATELET COUNT 224 10^3/uL (150-450); RED BLOOD COUNT 4.28 10^6/uL (4.35-5.55); RED CELL DISTRIBUTION WIDTH 17.2 % (11.5-14.0); WHITE BLOOD COUNT 9.2 10^3/uL (4.0-10.5)
[2020-05-11 09:26] LABS: ANION GAP 7 (5-19); BLOOD UREA NITROGEN 23 mg/dL (7-20); CARBON DIOXIDE 33 mmol/L (22-30); CHLORIDE 96 mmol/L (98-107)
[2020-05-11 09:28] LABS: CALCIUM 9.5 mg/dL (8.4-10.2); GLUCOSE 150 mg/dL (75-110)
[2020-05-11] MEDS: ASCORBIC ACID 500 MG TABLET PO SCH ×2 (10:30→17:06)
[2020-05-11] MEDS: HYDROCHLOROTHIAZIDE 12.5 MG TABLET PO SCH (10:30)
[2020-05-11] MEDS: FAMOTIDINE 20 MG TABLET PO SCH ×2 (10:30→21:41)
[2020-05-11] MEDS: POLYETHYLENE GLYCOL 3350 POWDER 17 GM/1 PACKET PO SCH (10:30)
[2020-05-11] MEDS: ZINC SULFATE 220 MG CAPSULE PO SCH (10:30)
[2020-05-11] MEDS: CHOLECALCIFEROL (D3) 1,000 UNIT (25 MCG) TABLET PO SCH (10:30)
[2020-05-11] MEDS: PREDNISONE 20 MG TABLET PO SCH (10:31)
[2020-05-11] MEDS: BENZTROPINE MESYLATE 1 MG TABLET PO SCH ×2 (10:31→17:06)
[2020-05-11] MEDS: ENOXAPARIN SODIUM INJ 40 MG/0.4 ML DISP.SYRIN SUBCUT SCH (10:31)
[2020-05-11] MEDS: DIVALPROEX SODIUM 500 MG TAB.SR.24H PO SCH (11:18)
[2020-05-11] MEDS: FLUTICASONE/VILANTEROL 100-25 MCG/DOSE IH SCH (13:25)
--- NOTE | 2020-05-11 18:49 | PDOC PROGRESS REPORT ---
Subjective Date:: 05/11/20 Reason For Visit: ACUTE HYPOXIC RESPIRATORY FAILURE PNUEMONIA DUE TO Physical Exam Vital Signs: Temp Pulse Resp BP Pulse Ox 98.5 F 69 17 116/64 96 05/11/20 15:24 05/11/20 15:24 05/11/20 15:24 05/11/20 15:24 05/11/20 15:24 Intake & Output 05/10/20 05/11/20 05/12/20 06:59 06:59 06:59 Intake Total 2377 1718 1242 Output Total 250 Balance 2127 1718 1242 Weight 58.5 kg 61.6 kg General appearance: PRESENT: no acute distress, cooperative Neck exam: ABSENT: JVD Respiratory exam: PRESENT: unlabored. ABSENT: accessory muscle use, retraction, tachypnea Cardiovascular exam: PRESENT: RRR. ABSENT: tachycardia Neurological exam: PRESENT: alert, awake Results Laboratory Results: 05/11/20 08:30 05/11/20 08:30 05/11/20 05/11/20 08:30 08:30 WBC 9.2 RBC 4.28 L Hgb 12.8 L Hct 38.5 MCV 90 MCH 30.0 MCHC 33.3 RDW 17.2 H Plt Count 224 Sodium 136.1 L Potassium 4.0 Chloride 96 L Carbon Dioxide 33 H Anion Gap 7 BUN 23 H Creatinine 0.70 Est GFR ( Amer) > 60 Glucose 150 H Calcium 9.5 Magnesium 2.0 04/18/20 04/18/20 04/24/20 17:14 21:15 06:41 Creatine Kinase 6115 H Troponin I 0.024 NT-Pro-B Natriuret Pep 535 H Impressions: Chest X-Ray 04/23/20 00:00 IMPRESSION: Worsening patchy bilateral interstitial and alveolar opacities, likely multifocal pneumonia. Edema is another consideration. No significant effusion. Assessment and Plan - Diagnosis (1) Acute respiratory failure with hypoxia Is this a current diagnosis for this admission?: Yes (2) Pneumonia due to COVID-19 virus Is this a current diagnosis for this admission?: Yes (3) Alzheimer's dementia Qualifiers: Alzheimer's disease onset: unspecified onset Is this a current diagnosis for this admission?: Yes (4) History of COPD Is this a current diagnosis for this admission?: Yes (5) Hypokalemia Is this a current diagnosis for this admission?: Yes (6) Metabolic alkalosis Is this a current diagnosis for this admission?: Yes (7) Schizophrenia Is this a current diagnosis for this admission?: Yes (8) Transaminitis Is this a current diagnosis for this admission?: Yes - Plan Summary Summary: Patient initially presented with severe COVID-19 infection. However, his COVID- 19 infection has resolved and he tested positive for 23 days ago. His repeat COVID-19 test is negative and I have discontinued his airborne isolation. Patient to be transferred out of the Covid unit. Labs look adequate today. He remains ready for discharge and is a social hold awaiting placement. - Time Time Spent with patient: Less than 15 minutes Anticipated Discharge Disposition: [facility] SNF Anticipated Discharge Timeframe: when bed available
[2020-05-11] MEDS: TRAZODONE HCL 50 MG TABLET PO SCH (21:41)
[2020-05-12] MEDS: INSULIN LISPRO 100 UNIT/ML 3 ML VIAL SUBCUT SCH ×4 (07:27→22:29)
[2020-05-12] MEDS: FUROSEMIDE 40 MG TABLET PO SCH ×2 (07:29→08:20)
[2020-05-12] MEDS: IPRATROPIUM/ALBUTEROL 0.5-2.5 MG/3 ML AMPUL NEB SCH ×3 (08:31→21:11)
[2020-05-12] MEDS: POLYETHYLENE GLYCOL 3350 POWDER 17 GM/1 PACKET PO SCH (09:18)
[2020-05-12] MEDS: CHOLECALCIFEROL (D3) 1,000 UNIT (25 MCG) TABLET PO SCH (09:19)
[2020-05-12] MEDS: BENZTROPINE MESYLATE 1 MG TABLET PO SCH ×2 (09:19→17:12)
[2020-05-12] MEDS: FAMOTIDINE 20 MG TABLET PO SCH ×2 (09:19→22:29)
[2020-05-12] MEDS: ASCORBIC ACID 500 MG TABLET PO SCH ×2 (09:19→17:11)
[2020-05-12] MEDS: PREDNISONE 20 MG TABLET PO SCH (09:19)
[2020-05-12] MEDS: ZINC SULFATE 220 MG CAPSULE PO SCH (09:19)
[2020-05-12] MEDS: ENOXAPARIN SODIUM INJ 40 MG/0.4 ML DISP.SYRIN SUBCUT SCH (09:19)
[2020-05-12] MEDS: HYDROCHLOROTHIAZIDE 12.5 MG TABLET PO SCH (09:20)
[2020-05-12] MEDS: FLUTICASONE/VILANTEROL 100-25 MCG/DOSE IH SCH (09:20)
[2020-05-12] MEDS: DIVALPROEX SODIUM 500 MG TAB.SR.24H PO SCH (11:39)
--- NOTE | 2020-05-12 15:47 | PDOC PROGRESS REPORT ---
Subjective Date:: 05/12/20 Subjective:: He feels well today. He has no complaints. Reason For Visit: ACUTE HYPOXIC RESPIRATORY FAILURE PNUEMONIA DUE TO Physical Exam Vital Signs: Temp Pulse Resp BP Pulse Ox 98.2 F 70 16 118/80 92 05/12/20 11:22 05/12/20 14:15 05/12/20 14:15 05/12/20 11:22 05/12/20 14:15 Intake & Output 05/11/20 05/12/20 05/13/20 06:59 06:59 06:59 Intake Total 1718 1622 750 Output Total 650 600 Balance 1718 972 150 Weight 61.6 kg 61.6 kg 61.6 kg General appearance: PRESENT: no acute distress, cooperative Neck exam: ABSENT: JVD Respiratory exam: PRESENT: symmetrical, unlabored. ABSENT: accessory muscle use, tachypnea Cardiovascular exam: ABSENT: tachycardia GI/Abdominal exam: PRESENT: soft. ABSENT: rebound, rigid, tenderness Musculoskeletal exam: PRESENT: ambulatory Neurological exam: PRESENT: alert, awake, oriented to person, oriented to place. ABSENT: oriented to time, oriented to situation Results Laboratory Results: 05/11/20 08:30 05/11/20 08:30 04/18/20 04/18/20 04/24/20 17:14 21:15 06:41 Creatine Kinase 6115 H Troponin I 0.024 NT-Pro-B Natriuret Pep 535 H Impressions: Chest X-Ray 04/23/20 00:00 IMPRESSION: Worsening patchy bilateral interstitial and alveolar opacities, likely multifocal pneumonia. Edema is another consideration. No significant effusion. Assessment and Plan - Diagnosis (1) Acute respiratory failure with hypoxia Is this a current diagnosis for this admission?: Yes (2) Pneumonia due to COVID-19 virus Is this a current diagnosis for this admission?: Yes (3) Alzheimer's dementia Qualifiers: Alzheimer's disease onset: unspecified onset Is this a current diagnosis for this admission?: Yes (4) History of COPD Is this a current diagnosis for this admission?: Yes (5) Hypokalemia Is this a current diagnosis for this admission?: Yes (6) Metabolic alkalosis Is this a current diagnosis for this admission?: Yes (7) Schizophrenia Is this a current diagnosis for this admission?: Yes (8) Transaminitis Is this a current diagnosis for this admission?: Yes - Plan Summary Summary: Patient in general today. We need to have physical therapy work with him and he did pretty well. I actually watched him get up by himself unassisted without difficulty. We ambulated him on room and he desaturated. We will set him up with oxygen. Seems to need only 1 to 2 L at rest and we can use 3 L with ambulation. He was evaluated by account manager sales representative from [facility] who has accepted him back to facility. Anticipated discharge tomorrow once oxygen has been set up. Discharge planning working on setting up oxygen. - Time Time Spent with patient: Less than 15 minutes Anticipated Discharge Disposition: [facility] Anticipated Discharge Timeframe: within 24 hours - once O2 is set up
[2020-05-12] MEDS: TRAZODONE HCL 50 MG TABLET PO SCH (22:29)
[2020-05-13] MEDS: INSULIN LISPRO 100 UNIT/ML 3 ML VIAL SUBCUT SCH ×2 (07:29→11:38)
[2020-05-13] MEDS: FUROSEMIDE 40 MG TABLET PO SCH (07:31)
[2020-05-13] MEDS: IPRATROPIUM/ALBUTEROL 0.5-2.5 MG/3 ML AMPUL NEB SCH ×2 (08:16→14:14)
[2020-05-13] MEDS: HYDROCHLOROTHIAZIDE 12.5 MG TABLET PO SCH (09:47)
[2020-05-13] MEDS: ZINC SULFATE 220 MG CAPSULE PO SCH (09:48)
[2020-05-13] MEDS: FAMOTIDINE 20 MG TABLET PO SCH (09:48)
[2020-05-13] MEDS: POLYETHYLENE GLYCOL 3350 POWDER 17 GM/1 PACKET PO SCH (09:49)
[2020-05-13] MEDS: CHOLECALCIFEROL (D3) 1,000 UNIT (25 MCG) TABLET PO SCH (09:49)
[2020-05-13] MEDS: BENZTROPINE MESYLATE 1 MG TABLET PO SCH (09:49)
[2020-05-13] MEDS: ENOXAPARIN SODIUM INJ 40 MG/0.4 ML DISP.SYRIN SUBCUT SCH (09:49)
[2020-05-13] MEDS: ASCORBIC ACID 500 MG TABLET PO SCH (09:49)
[2020-05-13] MEDS: FLUTICASONE/VILANTEROL 100-25 MCG/DOSE IH SCH (09:57)
[2020-05-13] MEDS ORDERED: PREDNISONE 20 MG TABLET PO SCH (10:00)
[2020-05-13] MEDS: DIVALPROEX SODIUM 500 MG TAB.SR.24H PO SCH (11:38)
--- NOTE | 2020-05-13 13:18 | PDOC TRANSFER SUMMARY ---
Impression - Admit/DC Date/PCP Admission Date/Primary Care Provider: 04/18/20 20:48 MARCO A RUEDA Discharge Date: 05/13/20 - Discharge Diagnosis (1) Acute respiratory failure with hypoxia Is this a current diagnosis for this admission?: Yes (2) Pneumonia due to COVID-19 virus Is this a current diagnosis for this admission?: Yes (3) Alzheimer's dementia Is this a current diagnosis for this admission?: Yes (4) History of COPD Is this a current diagnosis for this admission?: Yes (5) Hypokalemia Is this a current diagnosis for this admission?: Yes (6) Metabolic alkalosis Is this a current diagnosis for this admission?: Yes (7) Schizophrenia Is this a current diagnosis for this admission?: Yes (8) Transaminitis Is this a current diagnosis for this admission?: Yes - Additional Information Resuscitation Status: Do Not Resuscitate Referrals: DANA PEREZ MD [NO LOCAL MD] - Follow up as needed Prescriptions: Prednisone [Deltasone 5 mg Tablet] See Protocol PO DAILY #26 tablet Famotidine [Pepcid 20 mg Tablet] 20 mg PO Q12 #60 tablet Albuterol Sulfate [Ventolin Hfa 8 gm Mdi (1 Mdi/ER Disp)] 2 puff IH Q6HP PRN #1 inhaler PRN Reason: Home Medications: Benztropine Mesylate 1 mg PO BID 12/17/14 Divalproex Sodium [Depakote ER] 1,000 mg PO QHS 04/19/20 Furosemide [Lasix] 20 mg PO DAILY@1400 04/19/20 Furosemide [Lasix] 40 mg PO QAM 04/19/20 Hydrochlorothiazide 12.5 mg PO DAILY 04/19/20 Potassium Chloride 10 meq PO DAILY 04/19/20 Risperidone Microspheres [Risperdal Consta Inj 50 mg/2 ml Disp.syrin] 50 mg IM [id number] 04/19/20 Simvastatin [Zocor 10 mg Tablet] 10 mg PO QHS 04/19/20 Trazodone HCl 50 mg PO QHS 04/19/20 Albuterol Sulfate [Ventolin Hfa 8 gm Mdi (1 Mdi/ER Disp)] 2 puff IH Q6HP PRN #1 inhaler 05/13/20 Famotidine [Pepcid 20 mg Tablet] 20 mg PO Q12 #60 tablet 05/13/20 Prednisone [Deltasone 5 mg Tablet] See Protocol PO DAILY #26 tablet 05/13/20 History of Present Illiness History of Present Illness: HPI according to admitting provider: YAHAIRA SAUER is a 69 year old male with a history of Alzheimer's dementia, schizophrenia, COPD and hyperlipidemia who is brought in from [facility] after he was noted to have fever and change in his mental status from baseline. Patient is unable to give any meaningful answer and history was from ER signout and chart review. During transfer he had a temperature of 103.1 and he was given Tylenol by EMS which brought down his temperature. On arrival to the ED patient was saturating 87% on room air and was tachycardic. Further work-up indicates: Positive for COVID-19 with imaging findings consistent with Covid infection and currently being admitted to acute medicine floor for management of hypoxic respiratory failure. Hospital Course Hospital Course: Mr. Sauer had an extensive stay in the hospital. He initially presented with acute hypoxic respiratory failure secondary secondary to coronavirus pneumonia. He notably has history of Alzheimer's dementia. He received treatment for his severe disease with coronavirus pneumonia. He is hypoxia was as bad as requiring BiPAP therapy initially. He was later able to be weaned off BiPAP. Gradually he has been showing continued improvement in his oxygenation and currently only requires about 2 L at rest and 3 L when he ambulates on nasal cannula. Patient has been stable for the past several days now awaiting placement. He has walked with physical therapy and did pretty well. He has been evaluated by residential [facility] facility who has accepted him back. He has be en on steroids for meant of his Covid given the prolonged use of steroid he would require a gradual taper. He is being discharged back to the [facility] facility with palliative care consultation as well. At this point, he does not need any continued isolation for Covid as his COVID-19 infection has resolved. Physical Exam Vital Signs: Temp Pulse Resp BP Pulse Ox 98.4 F 77 16 112/64 92 05/13/20 10:58 05/13/20 10:58 05/13/20 10:58 05/13/20 10:58 05/13/20 10:58 Intake & Output 05/12/20 05/13/20 05/14/20 06:59 06:59 06:59 Intake Total 1622 1870 260 Output Total 650 1500 300 Balance 972 370 -40 Weight 61.6 kg 61.6 kg General appearance: PRESENT: no acute distress, cooperative Neck exam: ABSENT: JVD Respiratory exam: PRESENT: unlabored. ABSENT: accessory muscle use, tachypnea, wheezes Cardiovascular exam: PRESENT: RRR, +S1, +S2. ABSENT: tachycardia GI/Abdominal exam: PRESENT: soft. ABSENT: tenderness Musculoskeletal exam: PRESENT: ambulatory Neurological exam: PRESENT: alert, awake, oriented to person, oriented to place. ABSENT: oriented to time, oriented to situation Results Laboratory Results: WBC 9.2 10^3/uL (4.0-10.5) 05/11/20 08:30 RBC 4.28 10^6/uL (4.35-5.55) L 05/11/20 08:30 Hgb 12.8 g/dL (13.5-17.0) L 05/11/20 08:30 Hct 38.5 % (37.9-51.0) 05/11/20 08:30 MCV 90 fl (80-97) 05/11/20 08:30 MCH 30.0 pg (27.0-33.4) 05/11/20 08:30 MCHC 33.3 g/dL (32.0-36.0) 05/11/20 08:30 RDW 17.2 % (11.5-14.0) H 05/11/20 08:30 Plt Count 224 10^3/uL (150-450) 05/11/20 08:30 Lymph % (Auto) 5.8 % (13-45) L 05/10/20 16:52 Wythe % (Auto) 3.9 % (3-13) 05/10/20 16:52 Eos % (Auto) 0.0 % (0-6) 05/10/20 16:52 Baso % (Auto) 0.1 % (0-2) 05/10/20 16:52 Absolute Neuts (auto) 9.9 10^3/uL (1.7-8.2) H 05/10/20 16:52 Absolute Lymphs (auto) 0.6 10^3/uL (0.5-4.7) 05/10/20 16:52 Absolute Monos (auto) 0.4 10^3/uL (0.1-1.4) 05/10/20 16:52 Absolute Eos (auto) 0.0 10^3/uL (0.0-0.6) 05/10/20 16:52 Absolute Basos (auto) 0.0 10^3/uL (0.0-0.2) 05/10/20 16:52 Total Counted 100 04/29/20 04:55 Seg Neutrophils % 90.2 % (42-78) H 05/10/20 16:52 Seg Neuts % (Manual) 94 % (42-78) H 04/29/20 04:55 Band Neutrophils % 1 % (3-5) L 04/29/20 04:55 Lymphocytes % (Manual) 2 % (13-45) L 04/29/20 04:55 Monocytes % (Manual) 3 % (3-13) 04/29/20 04:55 Eosinophils % (Manual) 0 % (0-6) 04/29/20 04:55 Basophils % (Manual) 0 % (0-2) 04/29/20 04:55 Abs Neuts (Manual) 10.0 10^3/uL (1.7-8.2) H 04/29/20 04:55 Abs Lymphs (Manual) 0.2 10^3/uL (0.5-4.7) L 04/29/20 04:55 Abs Monocytes (Manual) 0.3 10^3/uL (0.1-1.4) 04/29/20 04:55 Absolute Eos (Manual) 0.0 10^3/uL (0.0-0.6) 04/29/20 04:55 Abs Basophils (Manual) 0.0 10^3/uL (0.0-0.2) 04/29/20 04:55 Nucleated RBCs 1 /100 WBC (0) 04/23/20 05:00 Clumped Platelets PRESENT 04/29/20 04:55 Platelet Comment ADEQUATE 04/29/20 04:55 Poikilocytosis SLIGHT 04/29/20 04:55 Anisocytosis 2+ 04/29/20 04:55 D-Dimer 3.33 ug/mL (0.00-0.50) H 04/25/20 08:42 VBG pH 7.54 (7.30-7.42) H 04/18/20 17:14 VBG pCO2 35.6 mmHg (35-63) 04/18/20 17:14 VBG HCO3 29.7 mmol/L (20-32) 04/18/20 17:14 VBG Base Excess 7.0 mmol/L 04/18/20 17:14 Sodium 136.1 mmol/L (137-145) L 05/11/20 08:30 Potassium 4.0 mmol/L (3.6-5.0) 05/11/20 08:30 Chloride 96 mmol/L (98-107) L 05/11/20 08:30 Carbon Dioxide 33 mmol/L (22-30) H 05/11/20 08:30 Anion Gap 7 (5-19) 05/11/20 08:30 BUN 23 mg/dL (7-20) H 05/11/20 08:30 Creatinine 0.70 mg/dL (0.52-1.25) 05/11/20 08:30 Est GFR ( Amer) > 60 (>60) 05/11/20 08:30 Est GFR (MDRD) Non-Af > 60 (>60) 05/11/20 08:30 Glucose 150 mg/dL (75-110) H 05/11/20 08:30 POC Glucose 250 mg/dL (70-110) H 05/13/20 11:00 Lactic Acid 1.3 mmol/L (0.7-2.1) 04/19/20 00:19 Calcium 9.5 mg/dL (8.4-10.2) 05/11/20 08:30 Magnesium 2.0 mg/dL (1.6-2.3) 05/11/20 08:30 Ferritin 347.00 ng/mL (17.9-464.0) 04/24/20 06:41 Total Bilirubin 0.5 mg/dL (0.2-1.3) 05/01/20 04:19 Direct Bilirubin 0.3 mg/dL (0.0-0.4) 05/01/20 04:19 Neonat Total Bilirubin Not Reportable 05/01/20 04:19 Neonat Direct Bilirubin Not Reportable 05/01/20 04:19 Neonat Indirect Bili Not Reportable 05/01/20 04:19 AST 26 U/L (17-59) 05/01/20 04:19 ALT 21 U/L (<50) 05/01/20 04:19 Alkaline Phosphatase 54 U/L (38-126) 05/01/20 04:19 Lactate Dehydrogenase 399 U/L (120-246) H 04/18/20 21:15 Creatine Kinase 6115 U/L (55-170) H 04/18/20 21:15 Troponin I 0.024 ng/mL 04/18/20 17:14 C-Reactive Protein 239.1 mg/L (<10.0) H 04/24/20 06:41 NT-Pro-B Natriuret Pep 535 pg/mL (<125) H 04/24/20 06:41 Total Protein 6.2 g/dL (6.3-8.2) L 05/01/20 04:19 Albumin 3.0 g/dL (3.5-5.0) L 05/01/20 04:19 Procalcitonin 0.92 ng/mL (0.00-0.08) H 04/23/20 05:00 Urine Color YELLOW 04/18/20 19:14 Urine Appearance CLEAR 04/18/20 19:14 Urine pH 7.0 (5.0-9.0) 04/18/20 19:14 Ur Specific [place] 1.012 04/18/20 19:14 Urine Protein NEGATIVE mg/dL (NEGATIVE) 04/18/20 19:14 Urine Glucose (UA) NEGATIVE mg/dL (NEGATIVE) 04/18/20 19:14 Urine Ketones NEGATIVE mg/dL (NEGATIVE) 04/18/20 19:14 Urine Blood LARGE (NEGATIVE) H 04/18/20 19:14 Urine Nitrite (Reflex) NEGATIVE (NEGATIVE) 04/18/20 19:14 Urine Bilirubin NEGATIVE (NEGATIVE) 04/18/20 19:14 Urine Urobilinogen 2.0 mg/dL (<2.0) H 04/18/20 19:14 Leukocyte Esterase Rfl NEGATIVE (NEGATIVE) 04/18/20 19:14 Urine RBC (Auto) 2 /HPF 04/18/20 19:14 Urine WBC (Reflex) 1 /HPF 04/18/20 19:14 Urine Ascorbic Acid NEGATIVE (NEGATIVE) 04/18/20 19:14 Hepatitis A IgM Ab Negative (Negative) 04/20/20 08:52 Hep Bs Antigen Negative (Negative) 04/20/20 08:52 Hep B Core IgM Ab Negative (Negative) 04/20/20 08:52 Hepatitis C Antibody <0.1 s/co ratio (0.0-0.9) 04/20/20 08:52 Influenza A (RT-PCR) NEGATIVE (NEGATIVE) 05/11/20 09:59 Influenza B (RT-PCR) NEGATIVE (NEGATIVE) 05/11/20 09:59 RSV (RT-PCR) NEGATIVE (NEGATIVE) 05/11/20 09:59 SARS-CoV-2 Rap RNA(RT-PCR) NEGATIVE (NEGATIVE) 05/11/20 09:59 Blood Type B POSITIVE 04/24/20 08:21 04/18/20 04/24/20 17:14 06:41 Troponin I 0.024 NT-Pro-B Natriuret Pep 535 H Impressions: Chest X-Ray 04/23/20 00:00 IMPRESSION: Worsening patchy bilateral interstitial and alveolar opacities, likely multifocal pneumonia. Edema is another consideration. No significant effusion. Plan Time Spent: Greater than 30 Minutes Stroke Is this a Stroke Patient?: No Acute Heart Failure Is this a Heart Failure Patient?: No
[2020-05-13 15:41] VITALS: BP 157/78
== END 2020-05-13 16:15 | DRG 177 ==
LOC: ER 16:47 → EH 20:48 → 3W 23:27 → 3S 05-02 08:58 → 4S 05-05 12:45
PROVIDERS: ADMIT Student in an Organized Health Care Education/Training Program; ATTEND Internal Medicine
PROC: 5A09557 Assistance with Respiratory Ventilation, Greater than 96 Consecutive Hours, Continuous Positive Airway Pressure (ICD-10-PCS; principal; 2020-04-23)
PROC: XW13325 Transfusion of Convalescent Plasma (Nonautologous) into Peripheral Vein, Percutaneous Approach, New Technology Group 5 (ICD-10-PCS; 2020-04-24)
PROC: XW033E5 Introduction of Remdesivir Anti-infective into Peripheral Vein, Percutaneous Approach, New Technology Group 5 (ICD-10-PCS; 2020-04-24)
DX: U07.1 COVID-19 (principal); J12.82 Pneumonia due to coronavirus disease 2019; J96.01 Acute respiratory failure with hypoxia; E87.1 Hypo-osmolality and hyponatremia; J44.0 Chronic obstructive pulmonary disease with (acute) lower respiratory infection; E87.3 Alkalosis; E87.6 Hypokalemia; G30.9 Alzheimer's disease, unspecified; F02.80 Dementia in other diseases classified elsewhere, unspecified severity, without behavioral disturbance, psychotic disturbance, mood disturbance, and anxiety; F20.9 Schizophrenia, unspecified; R74.01 Elevation of levels of liver transaminase levels; E78.5 Hyperlipidemia, unspecified; K21.9 Gastro-esophageal reflux disease without esophagitis; I10 Essential (primary) hypertension; Z66 Do not resuscitate; E86.9 Volume depletion, unspecified; Z78.1 Physical restraint status; Z79.899 Other long term (current) drug therapy; Z88.0 Allergy status to penicillin
CPT/HCPCS: 36415; 36430; 51702; 71045; 80048; 80053; 80074; 81001; 82550; 82728; 82803; 82962; 83605; 83615; 83735; 83880; 84145; 84484; 85025; 85027; 85379; 86140; 86900; 86901; 87040; 93005; 93010; 94640; 94660; 96361; 96365; 96376; 99285; 0241U; C9803; J0456; J0692; J0696; J1100; J1650; J1815; J1940; J1956; J2550; J3370; J3480; J3486; J3490; J7030; J7040; J7050; J7060; J7120; J7512